=== PATIENT | male | born 1955 | race Caucasian/White ===

== ENCOUNTER → 2018-09-21 10:28 | Outpatient (CLI) | payer BC, SELFPAY ==
--- NOTE | 2018-09-21 10:38 | US_ITS ---
US Kidney CLINICAL INDICATION: Evaluate left renal lesion ITS.REASON: NEOPLASM LT KIDNEY ORDERING PHYSICIAN: Matthew Velazquez MD PATIENT AGE: 63 years Comparison: 09/07/2018 FINDINGS: The right kidney measures 13 x 6 x 6 cm. No hydronephrosis evident. There are multiple right renal cyst. At least 3 cysts are present one in the upper pole at 17 mm, one in the mid pole at 13 mm and one in the mid pole 16 mm. The left kidney is 12 x 6 x 6 cm. No hydronephrosis. The CT scan suggested a possible solid lesion in the posterior aspect of the left kidney. There are multiple left renal cysts noted by ultrasound included a 19 mm cyst along the lower pole. In the upper pole there is a 2 cm cyst and a 1 cm cyst. In the lower pole laterally there is an isoechoic nodule at 19 mm it does not represent a simple cyst by ultrasound. No other significant anomalies are evident. IMPRESSION: 1. Bilateral renal cysts. 2. 19 mm mixed echogenic nodule in the lower pole which may correspond to the CT abnormality and does not meet the criteria for simple cyst. A solid lesion or complex cyst is considered. CT of the kidneys without and with contrast with three-phase postenhanced imaging suggested for further evaluation
== END ==
PROVIDERS: PCP Family Medicine; Visit Provider Family Medicine
DX: D41.02 Neoplasm of uncertain behavior of left kidney (principal)
CPT/HCPCS: 76770

== ENCOUNTER → 2018-10-04 14:47 | Outpatient (CLI) | payer BC, SELFPAY ==
[2018-10-04 17:02] LABS: Blood Urea Nitrogen 25 mg/dL (7-18); Creatinine,Serum 1.98 mg/dL (0.70-1.30); Estimated Glomerular Filt Rate 34 ml/min (>60); GFR (African American) 41 ML/MIN (>60)
== END ==
PROVIDERS: Visit Provider Family Medicine
DX: D41.02 Neoplasm of uncertain behavior of left kidney (principal)
CPT/HCPCS: 36415; 82565; 84520

== ENCOUNTER → 2018-10-06 09:39 | Outpatient (CLI) | payer BC, SELFPAY ==
--- NOTE | 2018-10-06 | CT_ITS ---
CT abdomen pelvis wo con CLINICAL INDICATION: Left renal lesion follow-up ITS.REASON: LEFT RENAL MASS ORDERING PHYSICIAN: Matthew Velazquez MD PATIENT AGE: 63 years COMPARISON: 09/07/2018, 09/21/2018 TECHNIQUE: The study was scheduled as a CT renal without and with contrast with three-phase imaging. The patient however was not given IV contrast due to his elevated creatinine and low GFR. Axial images obtained with sagittal and coronal reformats. All CT scans at the facility use one or more dose reduction, viz: automated exposure control, ma/kV adjustment per patient size (including targeted exams where dose is matched to indication, i.e. head), or iterative reconstruction technique. PROCEDURE: Oral Contrast: None IV Contrast: None . FINDINGS: Lower thorax: No acute finding The liver, gallbladder, spleen, and pancreas have an unremarkable unenhanced CT appearance. There is some mild nodularity of the left adrenal gland nonspecific measuring approximately 1 cm. There are bilateral renal cysts. On the right there is a 12 mm isodensity posteriorly and an 8 mm hyperdensity posteriorly which may be due to hyperdense cyst. There is an additional 10 mm isodensity medially. This ultrasound and lumbar spine CT demonstrated a 2 cm isoechoic nodule projecting off the inferior aspect of left kidney. This area is once again noted measuring 18 mm and 25 Hounsfield units. This is more dense than what one would expect for simple cyst. There is a simple appearing cyst in the anterior aspect of the left kidney at 18 mm 4 Hounsfield units and in the upper pole the left kidney at 16 mm and 3 Hounsfield units. No retroperitoneal adenopathy. No renal or ureteral calculi. No hydronephrosis. No intestinal obstruction or free air. Unremarkable appendix. Colonic diverticulosis without diverticulitis. The prostate is enlarged at 5.8 cm. No acute bony anomalies. There is an area of calcification posterior to the T8-T9 vertebral body along the anterior epidural region and may represent a calcified disc herniation some mild narrowing of the canal at this level. Degenerative disc disease is present at T9-T10 with partially calcified disc osteophyte complex posteriorly. IMPRESSION: 1. 2 cm indeterminate left renal lesion. Unfortunately, IV contrast could not be utilized secondary to patient's compromised renal status. Would therefore suggest a MRI of the kidneys without and with gadolinium enhancement to better delineate the left renal lesion. 2. Bilateral renal cysts 3. Indeterminate nodularity of the left adrenal gland which may also be better evaluated with MRI if clinically desired
== END ==
PROVIDERS: PCP Family Medicine; Visit Provider Family Medicine
DX: D41.02 Neoplasm of uncertain behavior of left kidney (principal)
CPT/HCPCS: 74176

== ENCOUNTER → 2018-10-25 10:55 | Outpatient (CLI) | payer BC, SELFPAY ==
[2018-10-25 15:05] LABS: Blood Urea Nitrogen 37 mg/dL (7-18); Estimated Glomerular Filt Rate 27 ml/min (>60); GFR (African American) 33 ML/MIN (>60)
== END ==
PROVIDERS: Visit Provider Family Medicine
DX: D41.02 Neoplasm of uncertain behavior of left kidney (principal)
CPT/HCPCS: 36415; 82565; 84520

== ENCOUNTER → 2018-10-26 09:25 | Outpatient (CLI) | payer BC, SELFPAY ==
--- NOTE | 2018-10-26 09:29 | MR_ITS ---
MR abdomen wo/w con INDICATION: Left renal neoplasm, abnormal CT and ultrasound follow-up ITS.REASON: NEOPLASM OF UNCERTAIN BEHAVIOR LEFT KIDNEY ORDERING PHYSICIAN: Matthew Velazquez MD PATIENT AGE: 63 years COMPARISON: 10/06/2018, 09/21/2018 TECHNIQUE: Routine multiplanar multiecho sequences are performed without and with gadolinium enhancement FINDINGS: There are multiple small bilateral renal cysts. In the lower pole the left kidney posteriorly there is a solid-appearing lesion corresponding to the previous CT and ultrasound abnormality. This measures approximately 1.8 x 1.8 cm. This is isointense on the T1-weighted images and hypointense to isointense also on the T2 weighted images. This does not demonstrate any significant contrast enhancement. This could represent a small neoplasm. No other solid-appearing lesions are evident. The liver, spleen, adrenal glands, and pancreas have an unremarkable appearance. No bony destructive process evident. There is a small T2 high flow and tenderness nodule in the right kidney posteriorly which corresponds to a hyperdense nodule in the CT scan system with a hyperdense cyst IMPRESSION: 1. Multiple bilateral renal cysts. 2. Solid-appearing nodule in the lower pole left kidney at [address] and ultrasound abnormality which could represent a small renal neoplasm.
--- NOTE | 2018-10-26 11:20 | HMH.ITSHM ---
Current Home Medications as stated by this patient Lazaro Minor or retail representative. []SPIRONOLASTONE CARVELILOL AMLODIPINE METFORMIN ALLOPURINOL PRAVASTATIN LISINOPRIL LEVOTHYROXIN VITAMIN D3 BABY ASPIRIN
== END ==
PROVIDERS: PCP Family Medicine; Visit Provider Family Medicine
DX: D41.02 Neoplasm of uncertain behavior of left kidney (principal)
CPT/HCPCS: 74183; A9576

== ENCOUNTER → 2018-12-04 14:48 | Outpatient (POV) | payer BC, SELFPAY ==
[2018-12-04 15:53] LABS: Microscopic, Urine URINE MICROSCOPIC (MICROSCOPIC)
[2018-12-04 16:12] LABS: Appearance,Urine CLEAR (Clear); Bilirubin,Urine Negative (Negative); Blood, Urine Negative (Negative); Color,Urine YELLOW (Yellow); Glucose,Urine (UA) Negative (Negative); Ketones,Urine Negative (Negative); Leukocyte Esterase,Urine Negative (Negative); Nitrate,Urine Negative (Negative); Protein,Urine Negative (Negative); Specific Gravity, Urine <= 1.005 (1.005-1.030); Urobilinogen,Urine 0.2 EU/dl (0.2)
[2018-12-04 16:16] LABS: Total Protein,Urine Random 10.1 mg/dL (0.0-11.9)
[2018-12-04 16:20] LABS: Basophils % 0.3 % (0.1-2.0); Eosinophils # 0.1 K/mm3 (0.0-0.4); Eosinophils % 2.3 % (0.1-12.0); Hematocrit 36.7 % (42.0-52.0); Hemoglobin 11.1 g/dL (14.1-18.0); Lymphocytes # 1.6 K/mm3 (0.7-4.5); Lymphocytes % 29.4 % (10-50); Mean Corpuscular HGB Conc 30.3 g/dL (31.8-35.4); Mean Corpuscular Hemoglobin 26.9 pg (27.0-31.2); Mean Corpuscular Volume 88.7 fl (80-94); Mean Platelet Volume 6.8 fl (7.4-10.4); Monocytes # 0.3 K/mm3 (0.1-1.0); Monocytes % 5.3 % (1.7-9.3); Neutrophils # 3.5 K/mm3 (1.8-7.8); Neutrophils % 62.8 % (37.0-80.0); Platelet Count 313 K/mm3 (142-424); Red Blood Count 4.14 M/mm3 (4.60-6.20); Red Cell Distribution Width 13.4 % (11.5-17.5); White Blood Count 5.6 K/mm3 (4.8-10.8)
[2018-12-04 16:32] LABS: WBC,Urine Occasional #/hpf (0-3)
[2018-12-04 20:06] LABS: Albumin Level 3.8 gm/dL (3.4-5.0); Anion Gap 15.4 mEq/L (5-15); Blood Urea Nitrogen 26 mg/dL (7-18); Calcium 9.7 mg/dL (8.5-10.1); Carbon Dioxide 21 mmol/L (21.0-32.0); Chloride 103 mmol/L (98-107); Creatinine,Serum 2.09 mg/dL (0.70-1.30); Estimated Glomerular Filt Rate 32 ml/min (>60); GFR (African American) 39 ML/MIN (>60); Glucose 84 mg/dL (74-106); Potassium 5.4 mmoL/L (3.5-5.1); Sodium 134 mmol/L (136-145); Uric Acid 5.7 mg/dL (2.6-7.2)
[2018-12-07 06:10] LABS: Creatinine, Urine 30.9 mg/dL (Not Estab.); Microalbumin, Urine 40.6 ug/mL (Not Estab.)
[2018-12-07 20:00] LABS: Calcium, Ionized 5.6 mg/dL (4.5-5.6); Parathyroid Hormone Intact 19 pg/mL (15-65)
[2018-12-07 20:01] LABS: Vitamin D 25 Hydroxy 22.2 ng/mL (30.0-100.0)
== END ==
PROVIDERS: PCP Family Medicine; Visit Provider Internal Medicine Nephrology
DX: R79.89 Other specified abnormal findings of blood chemistry (principal); E55.9 Vitamin D deficiency, unspecified
CPT/HCPCS: 36415; 80069; 81001; 82043; 82330; 82570; 82652; 83970; 84155; 84550; 85025

== ENCOUNTER → 2019-01-24 07:50 | Outpatient (CLI) | payer BC, SELFPAY ==
[2019-01-24 07:52] LABS: Microscopic, Urine URINE MICROSCOPIC (MICROSCOPIC)
[2019-01-24 08:14] LABS: Basophils # 0.1 K/mm3 (0-0.2); Basophils % 0.6 % (0.1-2.0); Eosinophils # 0.3 K/mm3 (0.0-0.4); Hematocrit 34.4 % (42.0-52.0); Hemoglobin 10.8 g/dL (14.1-18.0); Lymphocytes # 2.3 K/mm3 (0.7-4.5); Lymphocytes % 32.2 % (10-50); Mean Corpuscular HGB Conc 31.5 g/dL (31.8-35.4); Mean Corpuscular Hemoglobin 28.3 pg (27.0-31.2); Mean Corpuscular Volume 89.9 fl (80-94); Mean Platelet Volume 6.7 fl (7.4-10.4); Monocytes # 0.4 K/mm3 (0.1-1.0); Monocytes % 5.4 % (1.7-9.3); Neutrophils % 57.7 % (37.0-80.0); Platelet Count 305 K/mm3 (142-424); Red Blood Count 3.83 M/mm3 (4.60-6.20); Red Cell Distribution Width 13.6 % (11.5-17.5)
[2019-01-24 09:41] LABS: Appearance,Urine CLEAR (Clear); Bilirubin,Urine Negative (Negative); Blood, Urine Negative (Negative); Color,Urine YELLOW (Yellow); Glucose,Urine (UA) Negative (Negative); Ketones,Urine Negative (Negative); Leukocyte Esterase,Urine Negative (Negative); Nitrate,Urine Negative (Negative); PH,Urine 5.5 (5.0-8.5); Protein,Urine Negative (Negative); Urobilinogen,Urine 0.2 EU/dl (0.2)
[2019-01-24 09:43] LABS: Creatinine,Urine Random 90 mg/dL (20-320); Total Protein,Urine Random 15.8 mg/dL (0.0-11.9)
[2019-01-24 09:58] LABS: Albumin Level 3.6 gm/dL (3.4-5.0); Anion Gap 18.5 mEq/L (5-15); Blood Urea Nitrogen 32 mg/dL (7-18); Calcium 9.8 mg/dL (8.5-10.1); Carbon Dioxide 21 mmol/L (21.0-32.0); Chloride 102 mmol/L (98-107); Creatinine,Serum 2.47 mg/dL (0.70-1.30); Estimated Glomerular Filt Rate 26 ml/min (>60); GFR (African American) 32 ML/MIN (>60); Glucose 120 mg/dL (74-106); Potassium 5.5 mmoL/L (3.5-5.1); Sodium 136 mmol/L (136-145)
[2019-01-24 10:59] LABS: Squamous Epithelial Cell,Urine Occasional #/hpf (0-5); WBC,Urine Occasional #/hpf (0-3)
== END ==
PROVIDERS: Visit Provider Internal Medicine Nephrology
DX: N18.4 Chronic kidney disease, stage 4 (severe) (principal)
CPT/HCPCS: 36415; 80069; 81001; 82570; 84155; 85025

== ENCOUNTER → 2019-01-25 13:38 | Outpatient (POV) | payer BC, SELFPAY | PROVIDERS: Visit Provider Internal Medicine Nephrology | DX: Z00.00 Encounter for general adult medical examination without abnormal findings (principal) ==

== ENCOUNTER → 2019-02-20 13:31 | Outpatient (CLI) | payer BC, SELFPAY ==
[2019-02-20 14:47] LABS: Blood Urea Nitrogen 35 mg/dL (7-18); Estimated Glomerular Filt Rate 27 ml/min (>60); GFR (African American) 33 ML/MIN (>60)
== END ==
PROVIDERS: Visit Provider Urology
DX: N28.89 Other specified disorders of kidney and ureter (principal)
CPT/HCPCS: 36415; 82565; 84520

== ENCOUNTER → 2019-02-21 08:30 | Outpatient (CLI) | payer BC, SELFPAY | PROVIDERS: PCP Family Medicine; Visit Provider Urology | DX: N28.89 Other specified disorders of kidney and ureter (principal) ==

== ENCOUNTER → 2019-03-05 10:21 | Outpatient (CLI) | payer BC, SELFPAY ==
--- NOTE | 2019-03-05 10:22 | MR_ITS ---
PROCEDURE: MR ABDOMEN WO CON CLINICAL INDICATION: renal mass Follow-up bilateral renal cysts and left renal mass COMPARISON: SPLUMBWO CT lumbar spine wo con from 09/07/2018 KIDNEY US Kidney from 09/21/[address] abdomen pelvis wo con from 10/06/2018 TECHNIQUE: Routine multiplanar multi echo sequences are performed without gadolinium enhancement. FINDINGS: Multiple bilateral renal cysts are once again noted. There remains a complex nodule in the lower pole of the left kidney measuring 1.9 cm. This is isointense on the T1 weighted images and hypointense on the T2 weighted images. The size and signal intensity is similar when compared to the previous exam. This is well-circumscribed. No new lesions are evident. No hydronephrosis. The visualized liver, spleen, adrenal glands, and pancreas have an unremarkable appearance. IMPRESSION: Overall stable CT appearance of the multiple bilateral renal cyst and the complex nodule in the lower pole on the left which could represent a proteinaceous or hemorrhagic cyst or even solid nodule. Continued follow-up recommended Dictated by: Mitch Vargas MD 03/08/2019 04:47 Electronically signed by Mitch Vargas MD in [place] 03/09/2019 10:46
== END ==
PROVIDERS: PCP Family Medicine; Visit Provider Urology
DX: N28.89 Other specified disorders of kidney and ureter (principal)
CPT/HCPCS: 74181

== ENCOUNTER → 2019-03-22 10:01 | Outpatient (CLI) | payer BC, SELFPAY ==
[2019-03-22 10:04] LABS: Microscopic, Urine URINE MICROSCOPIC (MICROSCOPIC)
[2019-03-22 10:45] LABS: Basophils % 0.5 % (0.1-2.0); Eosinophils # 0.2 K/mm3 (0.0-0.4); Hematocrit 35.8 % (42.0-52.0); Hemoglobin 11.2 g/dL (14.1-18.0); Lymphocytes % 34.1 % (10-50); Mean Corpuscular HGB Conc 31.3 g/dL (31.8-35.4); Mean Corpuscular Hemoglobin 29.1 pg (27.0-31.2); Mean Corpuscular Volume 92.9 fl (80-94); Mean Platelet Volume 7.5 fl (7.4-10.4); Monocytes # 0.3 K/mm3 (0.1-1.0); Monocytes % 4.4 % (1.7-9.3); Neutrophils # 3.4 K/mm3 (1.8-7.8); Neutrophils % 57.9 % (37.0-80.0); Platelet Count 312 K/mm3 (142-424); Red Blood Count 3.85 M/mm3 (4.60-6.20); Red Cell Distribution Width 13.3 % (11.5-17.5); White Blood Count 5.8 K/mm3 (4.8-10.8)
[2019-03-22 11:11] LABS: Appearance,Urine CLEAR (Clear); Bilirubin,Urine Negative (Negative); Blood, Urine Negative (Negative); Color,Urine YELLOW (Yellow); Glucose,Urine (UA) Negative (Negative); Ketones,Urine Negative (Negative); Leukocyte Esterase,Urine Negative (Negative); Nitrate,Urine Negative (Negative); PH,Urine 5.5 (5.0-8.5); Protein,Urine Negative (Negative); Urobilinogen,Urine 0.2 EU/dl (0.2)
[2019-03-22 13:00] LABS: Albumin Level 3.5 gm/dL (3.4-5.0); Anion Gap 14.1 mEq/L (5-15); Blood Urea Nitrogen 37 mg/dL (7-18); Calcium 9.2 mg/dL (8.5-10.1); Carbon Dioxide 21 mmol/L (21.0-32.0); Chloride 104 mmol/L (98-107); Creatinine,Serum 2.18 mg/dL (0.70-1.30); Estimated Glomerular Filt Rate 31 ml/min (>60); GFR (African American) 37 ML/MIN (>60); Glucose 111 mg/dL (74-106); Phosphorous 3.6 mg/dL (2.4-4.9); Potassium 5.1 mmoL/L (3.5-5.1); Sodium 134 mmol/L (136-145)
[2019-03-22 15:41] LABS: Creatinine,Urine Random 35 mg/dL (20-320); Total Protein,Urine Random 9.6 mg/dL (0.0-11.9)
== END ==
PROVIDERS: Visit Provider Internal Medicine Nephrology
DX: N18.4 Chronic kidney disease, stage 4 (severe) (principal)
CPT/HCPCS: 36415; 80069; 81001; 82570; 84155; 85025

== ENCOUNTER → 2019-03-29 15:35 | Outpatient (POV) | payer BC, SELFPAY | PROVIDERS: Visit Provider Internal Medicine Nephrology | DX: Z00.00 Encounter for general adult medical examination without abnormal findings (principal) ==

== ENCOUNTER → 2019-07-24 11:10 | Outpatient (CLI) | payer OTHER, SELFPAY ==
[2019-07-24 11:16] LABS: Microscopic, Urine URINE MICROSCOPIC (MICROSCOPIC)
[2019-07-24 11:47] LABS: Basophils % 0.3 % (0.1-2.0); Eosinophils # 0.2 K/mm3 (0.0-0.4); Eosinophils % 3.2 % (0.1-12.0); Hemoglobin 12.3 g/dL (14.1-18.0); Lymphocytes # 1.3 K/mm3 (0.7-4.5); Lymphocytes % 25.2 % (10-50); Mean Corpuscular HGB Conc 32.5 g/dL (31.8-35.4); Mean Corpuscular Hemoglobin 28.4 pg (27.0-31.2); Mean Corpuscular Volume 87.4 fl (80-94); Mean Platelet Volume 7.5 fl (7.4-10.4); Monocytes # 0.3 K/mm3 (0.1-1.0); Monocytes % 6.1 % (1.7-9.3); Neutrophils # 3.4 K/mm3 (1.8-7.8); Neutrophils % 65.2 % (37.0-80.0); Platelet Count 340 K/mm3 (142-424); Red Blood Count 4.35 M/mm3 (4.60-6.20); Red Cell Distribution Width 12.7 % (11.5-17.5); White Blood Count 5.2 K/mm3 (4.8-10.8)
[2019-07-24 12:08] LABS: Appearance,Urine CLEAR (Clear); Bilirubin,Urine Negative (Negative); Blood, Urine 1+ (Negative); Color,Urine YELLOW (Yellow); Glucose,Urine (UA) Negative (Negative); Ketones,Urine Negative (Negative); Leukocyte Esterase,Urine Negative (Negative); Nitrate,Urine Negative (Negative); Protein,Urine 3+ (Negative); Urobilinogen,Urine 0.2 EU/dl (0.2)
[2019-07-24 12:26] LABS: Creatinine,Urine Random 22 mg/dL (Not Estab.)
[2019-07-24 12:33] LABS: Bacteria,Urine Trace /lpf; RBC,Urine Occasional #/hpf (0-3); Squamous Epithelial Cell,Urine Occasional #/hpf (0-5)
[2019-07-24 13:15] LABS: Albumin Level 4.3 g/dl (3.5-5.0); Anion Gap 14.4 mEq/L (5-15); Blood Urea Nitrogen 21 mg/dl (9-20); Calcium 10.2 mg/dl (8.4-10.2); Carbon Dioxide 26 mmol/L (22.0-30.0); Chloride 100 mmol/L (98-107); Estimated Glomerular Filt Rate 34 ml/min (>60); GFR (African American) 41 ML/MIN (>60); Glucose 109 mg/dl (74-100); Phosphorous 3.7 mg/dl (2.5-4.5); Potassium 4.4 mmoL/L (3.5-5.1); Sodium 136 mmol/L (136-145)
[2019-07-25 16:21] LABS: Parathyroid Hormone Intact 25 pg/mL (15-65)
[2019-07-25 16:22] LABS: Calcium, Ionized 5.4 mg/dL (4.5-5.6); Vitamin D 25 Hydroxy 36.4 ng/mL (30.0-100.0)
== END ==
PROVIDERS: Visit Provider Internal Medicine Nephrology
DX: N18.4 Chronic kidney disease, stage 4 (severe) (principal)
CPT/HCPCS: 36415; 80069; 81001; 82330; 82570; 82652; 83970; 84155; 85025

== ENCOUNTER → 2019-08-27 07:52 | Outpatient (CLI) | payer MEDICARE, SELFPAY ==
--- NOTE | 2019-08-27 07:53 | MR_ITS ---
PROCEDURE: MR ABDOMEN WO CON CLINICAL INDICATION: RENAL MASS Follow-up renal mass COMPARISON: SPLUMBWO CT lumbar spine wo con from 09/07/2018 KIDNEY US Kidney from 09/21/[address] abdomen pelvis wo con from 10/06/2018 MR ABDOMEN WO CON from 03/05/2019 TECHNIQUE: Routine multiplanar multi echo sequences are performed without gadolinium enhancement. FINDINGS: Multiple bilateral renal cysts are once again noted. There remains a complex nodule in the lower pole of the left kidney measuring 2 x 1.8 cm. This is overall not significantly changed. No new nodules are evident. This nodule demonstrates decreased T2 an isointense T1 signal compared to the renal parenchyma. The liver, spleen, adrenal glands, and pancreas have an unremarkable appearance. Gallbladder has an unremarkable appearance. There is a hyperintense T1 exophytic nodule along the posterior aspect of the right kidney measuring 1 cm may be due to proteinaceous cyst. IMPRESSION: The solid-appearing left renal nodule appear stable compared to the previous exam. Continued six-month follow-up suggested. No change multiple bilateral renal cyst and the probable small proteinaceous cyst of the right kidney Dictated by: Mitch Vargas MD 08/30/2019 09:14 Electronically signed by Mitch Vargas MD in [place] 08/30/2019 09:14
== END ==
PROVIDERS: PCP Family Medicine; Visit Provider Urology
DX: N28.89 Other specified disorders of kidney and ureter (principal)
CPT/HCPCS: 74181

== ENCOUNTER → 2019-11-19 13:23 | Outpatient (CLI) | payer MEDICARE, SELFPAY ==
[2019-11-19 13:28] LABS: Microscopic, Urine URINE MICROSCOPIC (MICROSCOPIC)
[2019-11-19 14:29] LABS: Chloride 104 mmol/L (98-107); Sodium 135 mmol/L (136-145)
[2019-11-19 14:30] LABS: Albumin Level 4.2 g/dl (3.5-5.0); Potassium 4.7 mmoL/L (3.5-5.1)
[2019-11-19 14:32] LABS: Blood Urea Nitrogen 26 mg/dl (9-20); Estimated Glomerular Filt Rate 36 ml/min (>60); GFR (African American) 43 ML/MIN (>60)
[2019-11-19 14:33] LABS: Anion Gap 11.7 mEq/L (5-15); Calcium 9.6 mg/dl (8.4-10.2); Carbon Dioxide 24 mmol/L (22.0-30.0); Glucose 90 mg/dl (74-100)
[2019-11-19 14:36] LABS: Basophils % 0.3 % (0.1-2.0); Eosinophils # 0.2 K/mm3 (0.0-0.4); Eosinophils % 3.5 % (0.1-12.0); Hematocrit 38.2 % (42.0-52.0); Hemoglobin 12.8 g/dL (14.1-18.0); Lymphocytes # 1.9 K/mm3 (0.7-4.5); Mean Corpuscular HGB Conc 33.5 g/dL (31.8-35.4); Mean Corpuscular Hemoglobin 28.9 pg (27.0-31.2); Mean Corpuscular Volume 86.3 fl (80-94); Mean Platelet Volume 8.7 fl (7.4-10.4); Monocytes # 0.3 K/mm3 (0.1-1.0); Neutrophils # 4.3 K/mm3 (1.8-7.8); Neutrophils % 63.2 % (37.0-80.0); Platelet Count 338 K/mm3 (142-424); Red Blood Count 4.43 M/mm3 (4.60-6.20); Red Cell Distribution Width 13.4 % (11.5-17.5); White Blood Count 6.7 K/mm3 (4.8-10.8)
[2019-11-19 17:00] LABS: Creatinine,Urine Random 20 mg/dL (Not Estab.)
[2019-11-19 17:17] LABS: Appearance,Urine CLEAR (Clear); Bilirubin,Urine Negative (Negative); Blood, Urine Negative (Negative); Color,Urine YELLOW (Yellow); Glucose,Urine (UA) Negative (Negative); Ketones,Urine Negative (Negative); Leukocyte Esterase,Urine Negative (Negative); Nitrate,Urine Negative (Negative); Protein,Urine 1+ (Negative); Specific Gravity, Urine <= 1.005 (1.005-1.030); Urobilinogen,Urine 0.2 EU/dl (0.2)
[2019-11-19 17:31] LABS: Bacteria,Urine Trace /lpf; Squamous Epithelial Cell,Urine Occasional #/hpf (0-5); WBC,Urine Occasional #/hpf (0-3)
== END ==
PROVIDERS: Visit Provider Internal Medicine Nephrology
DX: N18.4 Chronic kidney disease, stage 4 (severe) (principal)
CPT/HCPCS: 36415; 80069; 81001; 82570; 84155; 85025

== ENCOUNTER → 2019-11-22 14:35 | Outpatient (POV) | payer MEDICARE, SELFPAY | PROVIDERS: Visit Provider Internal Medicine Nephrology | DX: Z00.00 Encounter for general adult medical examination without abnormal findings (principal) ==

== ENCOUNTER → 2020-02-25 14:57 | Outpatient (CLI) | payer MEDICARE, SELFPAY ==
[2020-02-25 15:01] LABS: Microscopic, Urine URINE MICROSCOPIC (MICROSCOPIC)
[2020-02-25 15:37] LABS: Basophils % 0.6 % (0.1-2.0); Eosinophils # 0.3 K/mm3 (0.0-0.4); Eosinophils % 4.2 % (0.1-12.0); Hemoglobin 12.5 g/dL (14.1-18.0); Lymphocytes % 29.2 % (10-50); Mean Corpuscular HGB Conc 33.8 g/dL (31.8-35.4); Mean Corpuscular Hemoglobin 29.4 pg (27.0-31.2); Mean Corpuscular Volume 87.1 fl (80-94); Mean Platelet Volume 7.7 fl (7.4-10.4); Monocytes # 0.3 K/mm3 (0.1-1.0); Monocytes % 4.7 % (1.7-9.3); Neutrophils # 4.2 K/mm3 (1.8-7.8); Neutrophils % 61.2 % (37.0-80.0); Platelet Count 317 K/mm3 (142-424); Red Blood Count 4.25 M/mm3 (4.60-6.20); Red Cell Distribution Width 12.8 % (11.5-17.5); White Blood Count 6.9 K/mm3 (4.8-10.8)
[2020-02-25 16:25] LABS: Albumin Level 4.4 g/dl (3.5-5.0); Anion Gap 15.7 mEq/L (5-15); Blood Urea Nitrogen 39 mg/dl (9-20); Calcium 9.9 mg/dl (8.4-10.2); Carbon Dioxide 21 mmol/L (22.0-30.0); Chloride 101 mmol/L (98-107); Estimated Glomerular Filt Rate 24 ml/min (>60); GFR (African American) 29 ML/MIN (>60); Glucose 97 mg/dl (74-100); Phosphorous 4.1 mg/dl (2.5-4.5); Potassium 5.7 mmoL/L (3.5-5.1); Sodium 132 mmol/L (136-145)
[2020-02-25 16:41] LABS: Appearance,Urine CLEAR (Clear); Bilirubin,Urine Negative (Negative); Blood, Urine Negative (Negative); Color,Urine YELLOW (Yellow); Glucose,Urine (UA) Negative (Negative); Ketones,Urine Negative (Negative); Leukocyte Esterase,Urine Negative (Negative); Nitrate,Urine Negative (Negative); PH,Urine 5.5 (5.0-8.5); Protein,Urine Negative (Negative); Specific Gravity, Urine 1.015 (1.005-1.030); Urobilinogen,Urine 0.2 EU/dl (0.2)
[2020-02-25 16:46] LABS: Squamous Epithelial Cell,Urine Occasional #/hpf (0-5)
[2020-02-25 16:51] LABS: Creatinine,Urine Random 86 mg/dL (Not Estab.)
== END ==
PROVIDERS: Visit Provider Internal Medicine Nephrology
DX: N18.4 Chronic kidney disease, stage 4 (severe) (principal); R80.9 Proteinuria, unspecified
CPT/HCPCS: 36415; 80069; 81001; 82570; 84155; 85025

== ENCOUNTER → 2020-03-03 14:42 | Outpatient (POV) | payer MEDICARE, SELFPAY | PROVIDERS: Visit Provider Internal Medicine Nephrology | DX: Z00.00 Encounter for general adult medical examination without abnormal findings (principal) ==

== ENCOUNTER → 2020-09-01 07:51 | Outpatient (CLI) | payer MEDICARE, SELFPAY ==
--- NOTE | 2020-09-01 07:51 | MR_ITS ---
PROCEDURE: MR ABDOMEN WO CON CLINICAL INDICATION: renal mass 1 year follow up scan. No new symptoms. Spots on left kidney since 2018. COMPARISON: US KIDNEY US Kidney from 09/21/[address] abdomen pelvis wo con from 10/06/2018 MR MR ABDOMEN WO CON from 08/27/2019 TECHNIQUE: Routine multiplanar multi echo sequences are performed without gadolinium enhancement. FINDINGS: There are numerous small bilateral renal cysts which have a benign appearance. The largest benign-appearing cyst is in the upper pole of the left kidney measuring 19 mm not significantly changed. There is a complex renal cyst in the lower pole on the left posteriorly which is isointense on T1 and hypointense on T2. The liver, adrenal glands, spleen, pancreas, and gallbladder has an unremarkable appearance. IMPRESSION: No change multiple renal cysts and hypointense T2 lesion along the lower pole of the left kidney possibly due to a hemorrhagic/proteinaceous/complex cyst or atypical solid lesion the. Dictated by: Mitch Vargas MD 09/03/2020 10:15 Mitch Vargas MD in [place] 09/03/2020 10:15
== END ==
PROVIDERS: PCP Family Medicine; Visit Provider Urology
DX: N28.89 Other specified disorders of kidney and ureter (principal)
CPT/HCPCS: 74181

== ENCOUNTER → 2020-11-19 09:11 | Outpatient (CLI) | payer MEDICARE, SELFPAY ==
[2020-11-19 09:44] LABS: Chloride 108 mmol/L (98-107); Sodium 136 mmol/L (136-145)
[2020-11-19 09:47] LABS: Anion Gap 16.2 mEq/L (5-15); Blood Urea Nitrogen 36 mg/dl (9-20); Calcium 9.1 mg/dl (8.4-10.2); Carbon Dioxide 18 mmol/L (22.0-30.0); Estimated Glomerular Filt Rate 23 ml/min (>60); GFR (African American) 28 ML/MIN (>60); Glucose 146 mg/dl (74-100)
[2020-11-19 10:05] LABS: Potassium 6.2 mmoL/L (3.5-5.1)
== END ==
PROVIDERS: PCP Family Medicine; Visit Provider Family Medicine
DX: E87.6 Hypokalemia (principal)
CPT/HCPCS: 36415; 80048

== ENCOUNTER → 2021-09-03 12:36 | Outpatient (CLI) | payer MEDICARE, SELFPAY ==
--- NOTE | 2021-09-03 12:41 | US_ITS ---
FINAL REPORT TECHNIQUE: Ultrasound images of the kidneys and bladder were obtained. CLINICAL HISTORY: .fu renal cysts COMPARISON: September 21, 2018 FINDINGS: The right kidney measures 9.8 cm in length. There is no hydronephrosis. The left kidney measures 9.7 cm in length. There is no hydronephrosis. Again demonstrated are a multitude of anechoic and hypoechoic structures in both kidneys. Individual structures measure up to 1.9 cm. Some of these structures demonstrate internal echoes. In the lower pole of the left kidney there is a complex focus measuring 2.5 x 1.7 cm. It was present previously but appears slightly larger on today's exam. The urinary bladder is unremarkable. IMPRESSION: Apparent increase in size of a complex lesion in the lower pole of the left kidney. A pre and post infusion CT scan is recommended to better characterize. Reviewed, Interpreted and Dictated by Inderjit Fink MD Transcribed by Patricia Duque Authenticated by Inderjit Fink MD on 09/03/2021 04:17:56 PM [facility]
== END ==
PROVIDERS: PCP Family Medicine; Visit Provider Urology
DX: N28.1 Cyst of kidney, acquired (principal)
CPT/HCPCS: 76770

== ENCOUNTER → 2021-09-08 10:41 | Outpatient (CLI) | payer MEDICARE, SELFPAY ==
[2021-09-08 12:48] LABS: Chloride 107 mmol/L (98-107); Sodium 134 mmol/L (136-145)
[2021-09-08 12:50] LABS: Alanine Aminotransferase 11 U/L (12-78); Blood Urea Nitrogen 30 mg/dl (9-20); Estimated Glomerular Filt Rate 26 ml/min (>60); GFR (African American) 31 ML/MIN (>60)
[2021-09-08 12:51] LABS: Albumin Level 4.2 g/dl (3.5-5.0); Albumin/Globulin Ratio 1.6 (1.1-1.8); Alkaline Phosphatase 59 U/L (38-126); Anion Gap 13.5 mEq/L (5-15); Aspartate Amino Transferase 19 U/L (17-59); Bilirubin,Total 0.5 mg/dl (0.2-1.3); Calcium 9.2 mg/dl (8.4-10.2); Carbon Dioxide 20 mmol/L (22.0-30.0); Globulin 2.7 g/dL (1.3-3.2); Glucose 113 mg/dl (74-100); Total Protein,Serum 6.9 g/dl (6.3-8.2)
[2021-09-08 13:14] LABS: Potassium 6.5 mmoL/L (3.5-5.1)
[2021-09-08 13:59] LABS: Prostate Specific Ag Screen 2.4 ng/ml (0.0-4.0)
== END ==
PROVIDERS: Visit Provider Urology
DX: N28.9 Disorder of kidney and ureter, unspecified (principal); Z12.5 Encounter for screening for malignant neoplasm of prostate
CPT/HCPCS: 36415; 80053; G0103

== ENCOUNTER → 2021-09-17 08:20 | Outpatient (CLI) | payer MEDICARE, SELFPAY ==
--- NOTE | 2021-09-17 08:34 | XR_ITS ---
FINAL REPORT CLINICAL HISTORY: chronic Rt knee pain, KNI FINDINGS: 3 views of the right knee were obtained. There is no acute fracture or dislocation. There is moderate narrowing of the medial compartment joint space. There is osteophyte formation along the undersurface of the patella and at the medial joint margin. There is a moderate joint effusion. IMPRESSION: Moderate joint effusion with moderate osteoarthritis. Reviewed, Interpreted and Dictated by Inderjit Fink MD Transcribed by Jeronimo Flores Authenticated by Inderjit Fink MD on 09/17/2021 10:56:51 AM [facility]
--- NOTE | 2021-09-17 08:34 | XR_ITS ---
FINAL REPORT CLINICAL HISTORY: chronic Lt knee pain, NKI FINDINGS: 3 views of the left knee were obtained. There is no acute fracture or dislocation. There is moderate medial compartment joint space narrowing. There is sharpening of the tibial spines. There is mild osteophyte formation along the medial and patellofemoral joint space. There is a 9 mm density in the posterior margin of the joint space concerning for intra-articular loose body. IMPRESSION: Moderate osteoarthritis with questionable posterior loose body. Reviewed, Interpreted and Dictated by Inderjit Fink MD Transcribed by Jeronimo Flores Authenticated by Inderjit Fink MD on 09/17/2021 10:56:42 AM [facility]
== END ==
PROVIDERS: PCP Family Medicine; Visit Provider Family Medicine
DX: M25.562 Pain in left knee (principal); M25.561 Pain in right knee
CPT/HCPCS: 73562

== ENCOUNTER → 2021-09-22 14:50 | Outpatient (POV) | payer MEDICARE, SELFPAY | PROVIDERS: Visit Provider Dermatology | DX: Z00.00 Encounter for general adult medical examination without abnormal findings (principal) ==

== ENCOUNTER → 2021-09-24 15:13 | Outpatient (POV) | payer MEDICARE, SELFPAY | PROVIDERS: Visit Provider Internal Medicine Nephrology | DX: Z00.00 Encounter for general adult medical examination without abnormal findings (principal) ==

== ENCOUNTER → 2021-10-20 08:31 | Outpatient (POV) | payer MEDICARE, SELFPAY | PROVIDERS: Visit Provider Dermatology | DX: Z00.00 Encounter for general adult medical examination without abnormal findings (principal) ==

== ENCOUNTER → 2021-11-23 09:53 | Outpatient (CLI) | payer MEDICARE, SELFPAY ==
[2021-11-23 10:05] LABS: Microscopic, Urine URINE MICROSCOPIC (MICROSCOPIC)
[2021-11-23 10:26] LABS: Hematocrit 38.6 % (42.0-52.0); Hemoglobin 11.7 g/dL (14.1-18.0); Mean Corpuscular HGB Conc 30.2 g/dL (31.8-35.4); Mean Corpuscular Hemoglobin 26.4 pg (27.0-31.2); Mean Corpuscular Volume 87.5 fl (80-94); Platelet Count 300 K/mm3 (142-424); Red Blood Count 4.41 M/mm3 (4.60-6.20); Red Cell Distribution Width 14.2 % (11.5-17.5); White Blood Count 5.5 K/mm3 (4.8-10.8)
[2021-11-23 10:48] LABS: Creatinine,Urine Random 44 mg/dL (Not Estab.)
[2021-11-23 11:01] LABS: Albumin Level 4.5 g/dl (3.5-5.0); Anion Gap 14.2 mEq/L (5-15); Blood Urea Nitrogen 22 mg/dl (9-20); Calcium 10.2 mg/dl (8.4-10.2); Carbon Dioxide 22 mmol/L (22.0-30.0); Chloride 106 mmol/L (98-107); Estimated Glomerular Filt Rate 30 ml/min (>60); GFR (African American) 36 ML/MIN (>60); Glucose 113 mg/dl (74-100); Phosphorous 3.7 mg/dl (2.5-4.5); Potassium 5.2 mmoL/L (3.5-5.1); Sodium 137 mmol/L (136-145)
[2021-11-23 11:12] LABS: Intact Parathyroid Hormone 36.4 pg/mL (7.5-53.5)
[2021-11-23 11:18] LABS: 25-OH Vitamin D, Total 60.4 ng/mL (30-100)
[2021-11-23 11:58] LABS: Appearance,Urine CLEAR (Clear); Bilirubin,Urine Negative (Negative); Blood, Urine Negative (Negative); Color,Urine YELLOW (Yellow); Glucose,Urine (UA) Negative (Negative); Ketones,Urine Negative (Negative); Leukocyte Esterase,Urine Negative (Negative); Nitrate,Urine Negative (Negative); Protein,Urine Negative (Negative); Specific Gravity, Urine <= 1.005 (1.005-1.030); Urobilinogen,Urine 0.2 EU/dl (0.2)
[2021-11-23 12:14] LABS: Bacteria,Urine Trace /lpf; Squamous Epithelial Cell,Urine Occasional #/hpf (0-5); WBC,Urine Occasional #/hpf (0-3)
== END ==
PROVIDERS: PCP Family Medicine; Visit Provider Internal Medicine Nephrology
DX: N18.4 Chronic kidney disease, stage 4 (severe) (principal)
CPT/HCPCS: 36415; 80069; 81001; 82306; 82570; 83970; 84155; 85014; 85018; 85048; 85049

== ENCOUNTER → 2021-11-26 15:01 | Outpatient (POV) | payer MEDICARE, SELFPAY | PROVIDERS: Visit Provider Internal Medicine Nephrology | DX: Z00.00 Encounter for general adult medical examination without abnormal findings (principal) ==

== ENCOUNTER → 2022-02-22 12:18 | Outpatient (CLI) | payer MEDICARE, SELFPAY ==
[2022-02-22 12:35] LABS: Microscopic, Urine URINE MICROSCOPIC (MICROSCOPIC)
[2022-02-22 13:21] LABS: Appearance,Urine CLEAR (Clear); Bilirubin,Urine Negative (Negative); Blood, Urine TRACE-I (Negative); Color,Urine YELLOW (Yellow); Glucose,Urine (UA) Negative (Negative); Hematocrit 35.3 % (42.0-52.0); Hemoglobin 11.4 g/dL (14.1-18.0); Ketones,Urine Negative (Negative); Leukocyte Esterase,Urine Negative (Negative); Mean Corpuscular HGB Conc 32.2 g/dL (31.8-35.4); Mean Corpuscular Hemoglobin 27.9 pg (27.0-31.2); Mean Corpuscular Volume 86.6 fl (80-94); Nitrate,Urine Negative (Negative); Platelet Count 380 K/mm3 (142-424); Protein,Urine 1+ (Negative); Red Blood Count 4.08 M/mm3 (4.60-6.20); Red Cell Distribution Width 16.3 % (11.5-17.5); Specific Gravity, Urine <= 1.005 (1.005-1.030); Urobilinogen,Urine 0.2 EU/dl (0.2); White Blood Count 6.5 K/mm3 (4.8-10.8)
[2022-02-22 13:33] LABS: Creatinine,Urine Random 16 mg/dL (Not Estab.)
[2022-02-22 13:48] LABS: RBC,Urine Occasional #/hpf (0-3); Squamous Epithelial Cell,Urine Occasional #/hpf (0-5); WBC,Urine Occasional #/hpf (0-3)
[2022-02-22 14:41] LABS: Albumin Level 4.1 g/dl (3.5-5.0); Anion Gap 16.4 mEq/L (5-15); Blood Urea Nitrogen 28 mg/dl (9-20); Calcium 9.4 mg/dl (8.4-10.2); Carbon Dioxide 22 mmol/L (22.0-30.0); Chloride 105 mmol/L (98-107); Estimated Glomerular Filt Rate 33 ml/min (>60); GFR (African American) 41 ML/MIN (>60); Glucose 96 mg/dl (74-100); Phosphorous 3.1 mg/dl (2.5-4.5); Potassium 5.4 mmoL/L (3.5-5.1); Sodium 138 mmol/L (136-145)
== END ==
PROVIDERS: PCP Family Medicine; Visit Provider Internal Medicine Nephrology
DX: N18.4 Chronic kidney disease, stage 4 (severe) (principal)
CPT/HCPCS: 36415; 80069; 81001; 82570; 84155; 85014; 85018; 85048; 85049

== ENCOUNTER → 2022-02-25 14:19 | Outpatient (POV) | payer MEDICARE, SELFPAY | PROVIDERS: Visit Provider Internal Medicine Nephrology | DX: Z00.00 Encounter for general adult medical examination without abnormal findings (principal) ==

== ENCOUNTER → 2022-03-04 09:34 | Outpatient (CLI) | payer MEDICARE, SELFPAY ==
[2022-03-04 10:55] LABS: Creatinine,Urine Random 70 mg/dL (Not Estab.)
== END ==
PROVIDERS: PCP Family Medicine; Visit Provider Internal Medicine Nephrology
DX: R80.9 Proteinuria, unspecified (principal)
CPT/HCPCS: 82570; 84155

== ENCOUNTER → 2022-06-07 12:51 | Outpatient (CLI) | payer MEDICARE, SELFPAY ==
[2022-06-07 13:47] LABS: Anion Gap 11.8 mEq/L (5-15); Blood Urea Nitrogen 18 mg/dl (9-20); Calcium 8.6 mg/dl (8.4-10.2); Carbon Dioxide 30 mmol/L (22.0-30.0); Chloride 98 mmol/L (98-107); Estimated Glomerular Filt Rate 28 ml/min (>60); GFR (African American) 34 ML/MIN (>60); Glucose 140 mg/dl (74-100); Sodium 137 mmol/L (136-145)
[2022-06-07 14:07] LABS: Potassium 2.8 mmoL/L (3.5-5.1)
== END ==
PROVIDERS: PCP Family Medicine; Visit Provider Family Medicine
DX: E87.6 Hypokalemia (principal)
CPT/HCPCS: 36415; 80048

== ENCOUNTER → 2022-06-21 14:52 | Outpatient (CLI) | payer MEDICARE, SELFPAY ==
[2022-06-21 15:12] LABS: Microscopic, Urine URINE MICROSCOPIC (MICROSCOPIC)
[2022-06-21 15:54] LABS: Creatinine,Urine Random 76 mg/dL (Not Estab.); Hematocrit 35.8 % (42.0-52.0); Hemoglobin 11.6 g/dL (14.1-18.0); Mean Corpuscular HGB Conc 32.4 g/dL (31.8-35.4); Mean Corpuscular Hemoglobin 25.4 pg (27.0-31.2); Mean Corpuscular Volume 78.2 fl (80-94); Platelet Count 370 K/mm3 (142-424); Red Blood Count 4.58 M/mm3 (4.60-6.20); Red Cell Distribution Width 13.6 % (11.5-17.5); White Blood Count 5.1 K/mm3 (4.8-10.8)
[2022-06-21 16:12] LABS: Albumin Level 3.9 g/dl (3.5-5.0); Anion Gap 8.7 mEq/L (5-15); Blood Urea Nitrogen 22 mg/dl (9-20); Calcium 8.8 mg/dl (8.4-10.2); Carbon Dioxide 34 mmol/L (22.0-30.0); Chloride 99 mmol/L (98-107); Estimated Glomerular Filt Rate 28 ml/min (>60); GFR (African American) 34 ML/MIN (>60); Glucose 157 mg/dl (74-100); Phosphorous 2.4 mg/dl (2.5-4.5); Sodium 139 mmol/L (136-145)
[2022-06-21 16:20] LABS: Appearance,Urine CLEAR (Clear); Bilirubin,Urine Negative (Negative); Blood, Urine 1+ (Negative); Color,Urine YELLOW (Yellow); Glucose,Urine (UA) TRACE (Negative); Ketones,Urine Negative (Negative); Leukocyte Esterase,Urine Negative (Negative); Nitrate,Urine Negative (Negative); Protein,Urine 3+ (Negative); Specific Gravity, Urine 1.015 (1.005-1.030); Urobilinogen,Urine 0.2 EU/dl (0.2)
[2022-06-21 16:26] LABS: WBC,Urine Occasional #/hpf (0-3)
[2022-06-21 16:34] LABS: Potassium 2.7 mmoL/L (3.5-5.1)
== END ==
PROVIDERS: PCP Family Medicine; Visit Provider Internal Medicine Nephrology
DX: N18.4 Chronic kidney disease, stage 4 (severe) (principal)
CPT/HCPCS: 36415; 80069; 81001; 82570; 84155; 85014; 85018; 85048; 85049

== ENCOUNTER → 2022-06-24 14:34 | Outpatient (POV) | payer MEDICARE, SELFPAY | PROVIDERS: Visit Provider Internal Medicine Nephrology | DX: Z00.00 Encounter for general adult medical examination without abnormal findings (principal) ==

== ENCOUNTER → 2022-06-24 15:13 | Outpatient (CLI) | payer MEDICARE, SELFPAY ==
[2022-06-24 17:35] LABS: Potassium 2.9 mmoL/L (3.5-5.1)
[2022-06-26 10:26] LABS: HIV Screen 4th Generation wRfx Non Reactive (Non Reactive)
[2022-06-27 05:02] LABS: Complement C3 225 mg/dL (82-167)
[2022-06-28 12:27] LABS: Albumin 3.6 g/dL (2.9-4.4); Alpha-1-Globulin 0.3 g/dL (0.0-0.4); Alpha-2-Globulin 1.3 g/dL (0.4-1.0); Gamma Globulin 0.9 g/dL (0.4-1.8); Protein, Total 7.5 g/dL (6.0-8.5)
[2022-06-28 13:09] LABS: Immunoglobulin A, Qn 233 mg/dL (61-437); Immunoglobulin G, Qn 1060 mg/dL (603-1613); Immunoglobulin M, Qn 70 mg/dL (20-172)
[2022-07-02 20:11] LABS: Free Kappa Lt Chains 75.8; Hep A Ab, IgM NEGATIVE; Hepatitis B Core Antibody IgM NEGATIVE; Hepatitis B Surface Antigen NEGATIVE; Hepatitis C Antibody <0.1
[2022-07-02 20:12] LABS: Free Lambda Lt Chains 51.2
[2022-07-02 20:13] LABS: Antinuclear Antibodies (ANA) NEGATIVE
== END ==
PROVIDERS: PCP Family Medicine; Visit Provider Internal Medicine Nephrology
DX: N18.4 Chronic kidney disease, stage 4 (severe) (principal); E87.6 Hypokalemia; R80.1 Persistent proteinuria, unspecified; Z11.4 Encounter for screening for human immunodeficiency virus [HIV]; R74.8 Abnormal levels of other serum enzymes; D84.1 Defects in the complement system
CPT/HCPCS: 36415; 80074; 82784; 83883; 84132; 84155; 84165; 86038; 86161; 86334; 86703; G0432

== ENCOUNTER → 2022-06-26 11:19 | Outpatient (CLI) | payer MEDICARE, SELFPAY ==
[2022-06-26 12:41] LABS: Total Volume,Urine 1800 mL (250-2400)
[2022-06-26 12:48] LABS: Total Protein 24 Hour,Urine 7416 mg/24 hr (40-90)
[2022-06-27 10:54] LABS: Creatinine, Ur 24hr 776 mg/24 hr (1000-2000); Creatinine, Urine 43.1 mg/dL (Not Estab.)
== END ==
PROVIDERS: PCP Family Medicine; Visit Provider Internal Medicine Nephrology
DX: R80.9 Proteinuria, unspecified (principal)
CPT/HCPCS: 82570; 84155

== ENCOUNTER → 2022-07-20 14:11 | Outpatient (CLI) | payer MEDICARE, SELFPAY ==
[2022-07-20 15:04] LABS: Potassium 3.6 mmoL/L (3.5-5.1)
== END ==
PROVIDERS: PCP Family Medicine; Visit Provider Family Medicine
DX: E87.6 Hypokalemia (principal)
CPT/HCPCS: 36415; 84132

== ENCOUNTER → 2022-09-24 10:21 | Outpatient (POV) | payer MEDICARE, SELFPAY ==
[2022-09-24 11:02] VITALS: BP 145/97; PULSE 99; RESP 19; O2SAT 99; BMI 24.4
--- NOTE | 2022-09-24 13:28 | EXP.PAIN.OV ---
HPI Data of Consult Patient: new to practice Consult date: 09/24/22 Requesting Physician: Samantha Westbrook APRN Primary Care Provider: Matthew Velazquez MD Consult Narrative Reason for consult: Bilateral knee pain History of present illness: Mr. Minor is a 67 year old male who presents today as a new patient. He is a referral from Dr. Westbrook's office from here at [facility]. Today he rates his pain a 10 out of 10. He states his pain is all in his bilateral knees and describes it as an aching, sharp sensation with throbbing that is been going on for approximately 2 years. He does state this pain interferes with his ability to perform activities of daily living such as cooking or cleaning or even simple ambulation. He denies any specific injury or trauma that initially started his pain symptoms however he states is progressively worsened over time. Patient has had gel injections from Dr. Westbrook's office however this did nothing for his pain symptoms. He states his knees are [id number] and that Dr. Westbrook wanted to try injective therapy first before proceeding forward with a possible total joint replacement. Patient states that he typically has increased blood pressure from oral steroid use. Patient has tried [id number] Tylenol and ibuprofen with no additional relief. He is also tried heat and ice and topicals. Patient states that he has not done any recent physical therapy however he is not interested due to the amount of pain he is already in. Patient is not on any scheduled medications. Patient does have a history of cardiac stents and is currently on a baby aspirin. His Kevin is [phone]. Its been reviewed and appropriate. CC: Samantha Westbrook APRN [facility] Disclaimer: The information contained in this section may have been updated after the patient was seen, as this information can be updated by other users. Medical History (Updated 09/24/22 @ 13:35 by Samantha Westbrook APRN) Diabetes Gout HLD (hyperlipidemia) HTN (hypertension) Hypothyroidism PVD (peripheral vascular disease) Social History (Updated 09/24/22 @ 11:04 by Brit Terrell RN) Smoking Status: Former smoker alcohol intake: never substance use type: denies use current occupational status: retired Travel in the last 8 weeks: None household members: spouse housing: house Review of Systems Review of Systems Review of systems:: pertinent systems reviewed and negative unless documented below Review of systems (narrative): Review of Systems: General: No recent weight changes, no fever, no sleep disturbances Respiratory: No cough, no shortness of air, no recurring pulmonary infections Cardiovascular/peripheral vascular: No chest pain, no palpitations, no edema, no shortness of breath Gastrointestinal: No new onset incontinence, normal bowel movements reported Genitourinary: No new onset incontinence Musculoskeletal: Bilateral knee pain Psychiatric: [Normal mood/affect] Neurological: [Denies weakness in extremities], [denies balance issues] Meds Home Medications and Allergies Home Medications Medication Instructions Recorded Confirmed Type carvedilol 25 mg tablet 25 mg PO DAILY htn 09/07/18 09/24/22 History levothyroxine 75 mcg tablet 75 mcg PO DAILY thyroid 09/07/18 09/24/22 History oxycodone-acetaminophen 5 mg-325 1 tab PO Q6HP PRN Moderate To 09/07/18 09/24/22 Rx mg tablet Severe Pain #12 tabs pravastatin 80 mg tablet 80 mg PO HS Cholesterol 09/07/18 09/24/22 History rivaroxaban 2.5 mg tablet 2.5 mg PO DAILY stent 09/07/18 09/24/22 History spironolactone 25 mg tablet 25 mg PO DAILY Fluid 09/07/18 09/24/22 History allopurinol 300 mg tablet 300 mg PO DAILY GOUT 11/21/18 09/24/22 History amlodipine 10 mg tablet 10 mg PO DAILY BLOOD PRESSURE 11/21/18 09/24/22 History aspirin 81 mg tablet,delayed 81 mg PO DAILY Blood thinner 11/21/18 09/24/22 History release garlic 1,000 mg capsule 1,000 mg PO QPC SUPPLIMENT 11/21/18 09/24/22 His
== END ==
PROVIDERS: PCP Family Medicine; Visit Provider Nurse Practitioner Family
DX: M17.0 Bilateral primary osteoarthritis of knee (principal); M25.561 Pain in right knee; M25.562 Pain in left knee
CPT/HCPCS: 99202; G0463

== ENCOUNTER 2022-10-05 10:15 | Day surgery (SDC) | payer MEDICARE, SELFPAY ==
[2022-10-05 10:23] VITALS: BP 161/74; PULSE 81; RESP 18; TEMP 36.8; O2SAT 97; BMI 24.7
[2022-10-05 10:36] VITALS: BP 162/78; PULSE 86; RESP 18; O2SAT 97
[2022-10-05 10:37] VITALS: BP 162/78; PULSE 86; RESP 18; O2SAT 97
[2022-10-05 10:42] VITALS: BP 161/64; PULSE 73; RESP 18; O2SAT 97
--- NOTE | 2022-10-05 10:43 | EXP.PAIN.PRO ---
Procedure Date: 10/05/22 Time: 10:40 Anesthesiologist:: Orlin García CRNA Complications:: None Pre-procedure Diagnosis:: Osteoarthritis bilateral knees. Chronic bilateral knee pain. Post-procedure Diagnosis:: Same. Indications for Procedure:: Patient is a very pleasant 67-year-old male that comes our clinic today for a left genicular nerve block. Patient had adverse reaction to oral steroids in the past. We will not use steroids today for his block. Patient is requesting local only. He complains of bilateral knee pain. Patient had orthopedic surgery consultation. Patient not interested in knee replacement at this time. Procedure Details:: Left knee genicular block Informed consent was obtained and the risk and benefits of the procedure was explained to the patient. The patient was taken to the procedure room. The left knee was prepped using ChloraPrep. I placed 22-gauge needles into the area of the left superior medial genicular nerve, left superior lateral genicular nerve and left inferior medial genicular nerve. Needle placement was confirmed in AP and lateral views with dye. We then injected bupivacaine 0.25% 3 mL's into each area of the left superior medial genicular nerve, left superior lateral genicular nerve and left inferior medial genicular nerve. Patient tolerated the procedure well with no complications. Plan and Disposition:: Patient was discharged without incident. Patient reported no pain in the left knee prior to discharge.
== END 2022-10-05 10:42 | disposition home or self-care (01) ==
PROVIDERS: PCP Family Medicine; Visit Provider Nurse Anesthetist, Certified Registered
DX: M17.0 Bilateral primary osteoarthritis of knee (principal); M25.561 Pain in right knee; M25.562 Pain in left knee
CPT/HCPCS: 64454

== ENCOUNTER → 2022-10-27 10:38 | Outpatient (POV) | payer MEDICARE, SELFPAY ==
[2022-10-27 11:15] VITALS: BP 176/92; PULSE 57; RESP 18; O2SAT 97; BMI 24.4
--- NOTE | 2022-10-27 11:32 | EXP.PAIN.SOA ---
[facility] Pain Management SOAP Note Subjective:: Patient is a pleasant 67-year-old male who presents today for follow-up of left genicular nerve block on 10/05/2022. We are currently treating the patient for osteoarthritis of bilateral knees, bilateral knee pain. Today he rates his pain a 10 out of 10. Patient states that he did have 100% improvement following the genicular nerve block lasting a couple of hours. Patient is unable to tolerate steroids and only had the numbing medication for this injection. Patient does state that he is back to his baseline today and describes this as a chronic aching, sharp sensation with throbbing that interferes with his ability to perform activities of daily living. He states that even simple ambulation is very painful. He has been to an orthopedic doctor and done gel injections with no improvement and was told that he had [id number] in his knees. Patient continues to want to hold off on total joint replacement and trying conservative therapies first. Patient has tried [id number] medications along with heat and ice and topicals with no additional relief. Patient does have a history of cardiac stents and is on baby aspirin and cannot tolerate NSAIDs any longer. He is [facility] is [phone]. Its been reviewed and appropriate. Review of Systems: General: No recent weight changes, no fever, no sleep disturbances Respiratory: No cough, no shortness of air, no recurring pulmonary infections Cardiovascular/peripheral vascular: No chest pain, no palpitations, no edema, no shortness of breath Gastrointestinal: No new onset incontinence, normal bowel movements reported Genitourinary: No new onset incontinence Musculoskeletal: Left knee pain Psychiatric: [Normal mood/affect] Neurological: [Denies weakness in extremities], [denies balance issues] Objective:: Physical Exam: General: Alert and oriented x3, no acute distress, pleasant and cooperative Lungs: Respirations even and unlabored, symmetrical chest expansion Eyes: PERRL Musculoskeletal: Flexion and extension of left knee somewhat guarded secondary to pain, [antalgic gait noted] Neurological: Speech clear, no gross sensory deficit Assessment:: Bilateral knee pain, osteoarthritis bilateral knees Plan:: Patient had 100% improvement following his first genicular nerve block on his left knee however due to not being able to tolerate steroids he only had approximately 2 hours of this relief with the numbing medication. I have discussed with the patient that he may benefit repeating this injection with the plan to proceed forward with the ablation if he continues to get significant relief. Risk and benefits were discussed with the patient and he would like to proceed forward with this plan of care. We will schedule the patient for a left genicular nerve block #2. Patient has been instructed to contact the clinic with any concerns before the next appointment. Dr. Salvador has reviewed this note and agrees with this plan of care. This note was dictated using voice recognition software and make contain errors or omissions. [facility] Disclaimer: The information contained in this section may have been updated after the patient was seen, as this information can be updated by other users. Medical History Diabetes Gout HLD (hyperlipidemia) HTN (hypertension) Hypothyroidism PVD (peripheral vascular disease) Family History (Updated 10/05/22 @ 10:23 by Julissa Crews RN) Other No significant family history Social History Smoking Status: Former smoker alcohol intake: never substance use type: denies use current occupational status: retired Travel in the last 8 weeks: None household members: spouse housing: house
== END ==
PROVIDERS: PCP Family Medicine; Visit Provider Nurse Practitioner Family
DX: M17.0 Bilateral primary osteoarthritis of knee (principal); M25.561 Pain in right knee; M25.562 Pain in left knee
CPT/HCPCS: 99212; G0463

== ENCOUNTER 2022-11-02 10:32 | Day surgery (SDC) | payer MEDICARE, SELFPAY ==
[2022-11-02 11:00] VITALS: BP 203/105; PULSE 53; RESP 18; TEMP 36.4; O2SAT 99; BMI 21.7
--- NOTE | 2022-11-02 11:01 | PC.NURSE ---
provider made aware of pt bp
--- NOTE | 2022-11-02 11:07 | EXP.PAIN.PRO ---
Procedure Date: 11/02/22 Time: 10:50 Anesthesiologist:: Orlin García CRNA Complications:: None Pre-procedure Diagnosis:: Arthritis left knee. Chronic left knee pain. Post-procedure Diagnosis:: Same. Indications for Procedure:: Patient is a very pleasant 67-year-old male that comes our clinic today for repeat left genicular nerve block. Patient had negative reaction to steroids in the past resulted in hypertension. Patient did not receive steroids with his last genicular nerve block. We will hold steroids today as well. He reports 2 to 3 hours of significant improvement terms of his overall left knee pain with his first genicular block. Procedure Details:: Left knee genicular block Informed consent was obtained and the risk and benefits of the procedure was explained to the patient. The patient was taken to the procedure room. The left knee was prepped using ChloraPrep. I placed 22-gauge needles into the area of the left superior medial genicular nerve, left superior lateral genicular nerve and left inferior medial genicular nerve. Needle placement was confirmed in AP and lateral views with dye. We then injected bupivacaine 0.25% 3 mL's and Depo-Medrol 25 mg into each area of the left superior medial genicular nerve, left superior lateral genicular nerve and left inferior medial genicular nerve. Patient tolerated the procedure well with no complications. Plan and Disposition:: Patient was discharged without incident.
[2022-11-02 11:10] VITALS: BP 138/93; PULSE 55; RESP 16; O2SAT 99
== END 2022-11-02 11:10 | disposition home or self-care (01) ==
PROVIDERS: PCP Family Medicine; Visit Provider Nurse Anesthetist, Certified Registered
DX: M17.12 Unilateral primary osteoarthritis, left knee (principal); M25.562 Pain in left knee; G89.29 Other chronic pain
CPT/HCPCS: 64454

== ENCOUNTER → 2022-11-18 09:51 | Outpatient (POV) | payer MEDICARE, SELFPAY ==
[2022-11-18 09:56] VITALS: BP 180/90; PULSE 68; RESP 18; O2SAT 98; BMI 22.1
--- NOTE | 2022-11-18 09:58 | EXP.PAIN.SOA ---
[facility] Pain Management SOAP Note Subjective:: Patient is a pleasant 67-year-old male who presents today for his follow-up of his second left genicular nerve block. We are currently treating the patient for osteoarthritis bilateral knees, bilateral knee pain. Today he does rate his pain a 10 out of 10. Patient denies any new trauma or injury. Patient denies any change location or type of pain that he experiences. Patient does states that he had 100% relief while the numbing medication was working. Patient is unable to tolerate steroids and only had lidocaine injected. Patient does describe his pain today as a constant aching, sharp sensation that does interfere with his ability perform activities of daily living such as cooking or cleaning or even ambulation. Patient is wanting to prolong having to have a total knee replacement. Patient has had 100% with both of these nerve blocks however only lasting a few hours with each due to the lack of steroid use. Patient has tried and failed conservative therapy such as oral medications, heat and ice, topicals, physical therapy, at home stretching for longer than 6 weeks as well as gel and intra-articular injections. Patient is not on any scheduled medications. His Kevin is [phone]. Its been reviewed and appropriate. Review of Systems: General: No recent weight changes, no fever, no sleep disturbances Respiratory: No cough, no shortness of air, no recurring pulmonary infections Cardiovascular/peripheral vascular: No chest pain, no palpitations, no edema, no shortness of breath Gastrointestinal: No new onset incontinence, normal bowel movements reported Genitourinary: No new onset incontinence Musculoskeletal: Left knee pain Psychiatric: [Normal mood/affect] Neurological: [Denies weakness in extremities], [denies balance issues] Objective:: Physical Exam: General: Alert and oriented x3, no acute distress, pleasant and cooperative Lungs: Respirations even and unlabored, symmetrical chest expansion Eyes: PERRL Musculoskeletal: Flexion and extension of left knee somewhat guarded secondary to pain, [antalgic gait noted] Neurological: Speech clear, no gross sensory deficit Assessment:: Osteoarthritis bilateral knees, bilateral knee pain Plan:: Patient has had 2 successful genicular nerve blocks with 100% relief. I have discussed with the patient that he may benefit from a genicular RFA. Risk and benefits were discussed with the patient and he would like to proceed forward with this plan of care. Patient has tried and failed conservative therapy such as oral medications, heat and ice, topicals, physical therapy, at home stretching and exercise for longer than 6 weeks as well as gel and intra-articular injection. Patient will be scheduled for a left genicular RFA. Patient has been instructed to contact the clinic with any concerns before the next appointment. Dr. Salvador has reviewed this note and agrees with this plan of care. This note was dictated using voice recognition software and make contain errors or omissions. [facility] Disclaimer: The information contained in this section may have been updated after the patient was seen, as this information can be updated by other users. Medical History Diabetes Gout HLD (hyperlipidemia) HTN (hypertension) Hypothyroidism PVD (peripheral vascular disease) Family History Other No significant family history Social History Smoking Status: Former smoker alcohol intake: never substance use type: denies use current occupational status: retired Travel in the last 8 weeks: None household members: spouse housing: house
== END ==
PROVIDERS: PCP Family Medicine; Visit Provider Nurse Practitioner Family
DX: M17.0 Bilateral primary osteoarthritis of knee (principal); M25.561 Pain in right knee; M25.562 Pain in left knee
CPT/HCPCS: 99212; G0463

== ENCOUNTER → 2022-12-20 13:21 | Outpatient (CLI) | payer MEDICARE, SELFPAY ==
[2022-12-20 13:29] LABS: Microscopic, Urine URINE MICROSCOPIC (MICROSCOPIC)
[2022-12-20 14:43] LABS: Appearance,Urine CLEAR (Clear); Bilirubin,Urine Negative (Negative); Blood, Urine 1+ (Negative); Color,Urine YELLOW (Yellow); Glucose,Urine (UA) TRACE (Negative); Ketones,Urine Negative (Negative); Leukocyte Esterase,Urine Negative (Negative); Nitrate,Urine Negative (Negative); Protein,Urine 3+ (Negative); Specific Gravity, Urine 1.015 (1.005-1.030); Urobilinogen,Urine 0.2 EU/dl (0.2)
[2022-12-20 15:22] LABS: RBC,Urine Occasional #/hpf (0-3); Squamous Epithelial Cell,Urine Occasional #/hpf (0-5)
[2022-12-20 15:43] LABS: Albumin Level 3.6 g/dl (3.5-5.0); Anion Gap 11.4 mEq/L (5-15); Blood Urea Nitrogen 39 mg/dl (9-20); Calcium 8.7 mg/dl (8.4-10.2); Carbon Dioxide 29 mmol/L (22.0-30.0); Chloride 100 mmol/L (98-107); Estimated Glomerular Filt Rate 16 ml/min (>60); GFR (African American) 20 ML/MIN (>60); Glucose 135 mg/dl (74-100); Phosphorous 4.2 mg/dl (2.5-4.5); Potassium 3.4 mmoL/L (3.5-5.1); Sodium 137 mmol/L (136-145)
[2022-12-20 16:14] LABS: Basophils % 0.2 % (0.1-2.0); Eosinophils # 0.1 K/mm3 (0.0-0.4); Eosinophils % 2.3 % (0.1-12.0); Hematocrit 32.6 % (42.0-52.0); Hemoglobin 10.1 g/dL (14.1-18.0); Lymphocytes # 1.1 K/mm3 (0.7-4.5); Lymphocytes % 28.1 % (10-50); Mean Corpuscular Hemoglobin 24.3 pg (27.0-31.2); Mean Corpuscular Volume 78.3 fl (80-94); Mean Platelet Volume 10.1 fl (7.4-10.4); Monocytes # 0.2 K/mm3 (0.1-1.0); Monocytes % 4.5 % (1.7-9.3); Neutrophils # 2.5 K/mm3 (1.8-7.8); Platelet Count 278 K/mm3 (142-424); Red Blood Count 4.16 M/mm3 (4.60-6.20); Red Cell Distribution Width 15.5 % (11.5-17.5); White Blood Count 3.8 K/mm3 (4.8-10.8)
[2022-12-20 17:24] LABS: Creatinine,Urine Random 55 mg/dL (Not Estab.)
== END ==
PROVIDERS: PCP Family Medicine; Visit Provider Internal Medicine Nephrology
DX: N18.4 Chronic kidney disease, stage 4 (severe) (principal)
CPT/HCPCS: 36415; 80069; 81001; 82570; 84155; 85025

== ENCOUNTER → 2023-01-31 12:48 | Outpatient (POV) | payer MEDICARE, SELFPAY | PROVIDERS: Visit Provider Internal Medicine Nephrology | DX: Z00.00 Encounter for general adult medical examination without abnormal findings (principal) ==

== ENCOUNTER → 2023-01-31 14:29 | Outpatient (CLI) | payer MEDICARE, SELFPAY ==
[2023-01-31 15:37] LABS: Hematocrit 32.6 % (42.0-52.0); Hemoglobin 10.4 g/dL (14.1-18.0); Mean Corpuscular HGB Conc 31.9 g/dL (31.8-35.4); Mean Corpuscular Hemoglobin 24.5 pg (27.0-31.2); Mean Corpuscular Volume 76.8 fl (80-94); Platelet Count 305 K/mm3 (142-424); Red Blood Count 4.25 M/mm3 (4.60-6.20); Red Cell Distribution Width 14.5 % (11.5-17.5); White Blood Count 5.1 K/mm3 (4.8-10.8)
[2023-01-31 15:43] LABS: Chloride 104 mmol/L (98-107); Sodium 143 mmol/L (136-145)
[2023-01-31 15:44] LABS: Albumin Level 3.6 g/dl (3.5-5.0)
[2023-01-31 15:46] LABS: Blood Urea Nitrogen 36 mg/dl (9-20); Carbon Dioxide 26 mmol/L (22.0-30.0); Estimated Glomerular Filt Rate 18 ml/min (>60); GFR (African American) 22 ML/MIN (>60); Iron 32 ug/dL (49-181)
[2023-01-31 15:47] LABS: Calcium 9.4 mg/dl (8.4-10.2); Glucose 111 mg/dl (74-100); Phosphorous 4.1 mg/dl (2.5-4.5)
[2023-01-31 15:56] LABS: Total Iron Binding Capacity 400 ug/dL (261-462)
[2023-01-31 16:22] LABS: Ferritin 19.1 ng/ml (17.9-464)
[2023-01-31 17:09] LABS: Anion Gap 16.1 mEq/L (5-15); Potassium 3.1 mmoL/L (3.5-5.1)
== END ==
PROVIDERS: PCP Family Medicine; Visit Provider Internal Medicine Nephrology
DX: N18.4 Chronic kidney disease, stage 4 (severe) (principal); D64.9 Anemia, unspecified; D50.9 Iron deficiency anemia, unspecified
CPT/HCPCS: 36415; 80069; 82728; 83540; 83550; 85014; 85018; 85048; 85049

== ENCOUNTER 2023-03-10 14:24 | Outpatient (CLI) | payer MEDICARE, SELFPAY ==
[2023-03-10 14:51] VITALS: BP 188/80; PULSE 79; RESP 18; O2SAT 97; BMI 24.3
[2023-03-10 15:07] LABS: Basophils % 0.2 % (0.1-2.0); Eosinophils # 0.1 K/mm3 (0.0-0.4); Eosinophils % 2.5 % (0.1-12.0); Hematocrit 28.4 % (42.0-52.0); Hemoglobin 9.6 g/dL (14.1-18.0); Lymphocytes # 0.8 K/mm3 (0.7-4.5); Lymphocytes % 22.9 % (10-50); Mean Corpuscular HGB Conc 33.8 g/dL (31.8-35.4); Mean Corpuscular Hemoglobin 25.9 pg (27.0-31.2); Mean Corpuscular Volume 76.8 fl (80-94); Mean Platelet Volume 8.6 fl (7.4-10.4); Monocytes # 0.2 K/mm3 (0.1-1.0); Monocytes % 5.3 % (1.7-9.3); Neutrophils # 2.4 K/mm3 (1.8-7.8); Platelet Count 258 K/mm3 (142-424); Red Blood Count 3.69 M/mm3 (4.60-6.20); Red Cell Distribution Width 14.9 % (11.5-17.5); White Blood Count 3.5 K/mm3 (4.8-10.8)
[2023-03-10 15:30] VITALS: BP 178/80; PULSE 84; RESP 18; O2SAT 98
== END 2023-03-10 15:40 | disposition home or self-care (01) ==
LOC: INF 14:26
PROVIDERS: PCP Family Medicine; Visit Provider Internal Medicine Nephrology
DX: N18.4 Chronic kidney disease, stage 4 (severe) (principal); D63.1 Anemia in chronic kidney disease
CPT/HCPCS: 85025; 96365; J1756

== ENCOUNTER 2023-03-17 14:11 | Outpatient (CLI) | payer MEDICARE, SELFPAY ==
[2023-03-17 14:50] VITALS: BP 146/70; PULSE 59; RESP 18; TEMP 36.8; O2SAT 98
[2023-03-17 15:30] VITALS: BP 148/72; PULSE 78
== END 2023-03-17 15:40 | disposition home or self-care (01) ==
LOC: INF 14:13
PROVIDERS: PCP Family Medicine; Visit Provider Internal Medicine Nephrology
DX: N18.4 Chronic kidney disease, stage 4 (severe) (principal); N18.9 Chronic kidney disease, unspecified; D63.1 Anemia in chronic kidney disease
CPT/HCPCS: 96365; J1756

== ENCOUNTER → 2023-03-21 16:11 | Outpatient (CLI) | payer MEDICARE, SELFPAY ==
[2023-03-21 16:23] LABS: Microscopic, Urine URINE MICROSCOPIC (MICROSCOPIC)
[2023-03-21 16:58] LABS: Hematocrit 30.1 % (42.0-52.0); Hemoglobin 10.1 g/dL (14.1-18.0); Mean Corpuscular HGB Conc 33.5 g/dL (31.8-35.4); Mean Corpuscular Hemoglobin 25.8 pg (27.0-31.2); Platelet Count 238 K/mm3 (142-424); Red Blood Count 3.91 M/mm3 (4.60-6.20); Red Cell Distribution Width 16.1 % (11.5-17.5); White Blood Count 3.8 K/mm3 (4.8-10.8)
[2023-03-21 17:00] LABS: Appearance,Urine CLEAR (Clear); Bilirubin,Urine Negative (Negative); Blood, Urine TRACE-I (Negative); Color,Urine YELLOW (Yellow); Glucose,Urine (UA) Negative (Negative); Ketones,Urine Negative (Negative); Leukocyte Esterase,Urine Negative (Negative); Nitrate,Urine Negative (Negative); Protein,Urine 3+ (Negative); Urobilinogen,Urine 0.2 EU/dl (0.2)
[2023-03-21 18:06] LABS: Chloride 104 mmol/L (98-107)
[2023-03-21 18:07] LABS: Potassium 3.5 mmoL/L (3.5-5.1); Sodium 139 mmol/L (136-145)
[2023-03-21 18:08] LABS: RBC,Urine Occasional #/hpf (0-3); Squamous Epithelial Cell,Urine Occasional #/hpf (0-5); WBC,Urine Occasional #/hpf (0-3)
[2023-03-21 18:09] LABS: Blood Urea Nitrogen 30 mg/dl (9-20); Estimated Glomerular Filt Rate 20 ml/min (>60); GFR (African American) 24 ML/MIN (>60); Iron 51 ug/dL (49-181)
[2023-03-21 18:10] LABS: Anion Gap 9.5 mEq/L (5-15); Calcium 8.6 mg/dl (8.4-10.2); Carbon Dioxide 29 mmol/L (22.0-30.0); Glucose 100 mg/dl (74-100); Phosphorous 4.1 mg/dl (2.5-4.5)
[2023-03-21 18:11] LABS: Creatinine,Urine Random 52 mg/dL (Not Estab.)
[2023-03-21 18:19] LABS: Total Iron Binding Capacity 320 ug/dL (261-462)
[2023-03-21 18:46] LABS: Ferritin 125 ng/ml (17.9-464)
== END ==
PROVIDERS: PCP Family Medicine; Visit Provider Internal Medicine Nephrology
DX: N18.4 Chronic kidney disease, stage 4 (severe) (principal)
CPT/HCPCS: 36415; 80069; 81001; 82570; 82728; 83540; 83550; 84155; 85014; 85018; 85048; 85049

== ENCOUNTER 2023-03-24 12:17 | Outpatient (CLI) | payer MEDICARE, SELFPAY ==
[2023-03-24 12:53] VITALS: BP 147/62; PULSE 70; RESP 18; O2SAT 98
[2023-03-24 13:32] VITALS: BP 156/74; PULSE 64; RESP 18; O2SAT 98
== END 2023-03-24 13:32 | disposition home or self-care (01) ==
LOC: INF 12:18
PROVIDERS: PCP Family Medicine; Visit Provider Internal Medicine Nephrology
DX: N18.4 Chronic kidney disease, stage 4 (severe) (principal); D63.1 Anemia in chronic kidney disease
CPT/HCPCS: 96365; J1756

== ENCOUNTER → 2023-03-24 14:23 | Outpatient (POV) | payer MEDICARE, SELFPAY | PROVIDERS: Visit Provider Internal Medicine Nephrology | DX: Z00.00 Encounter for general adult medical examination without abnormal findings (principal) ==

== ENCOUNTER 2023-03-31 14:14 | Outpatient (CLI) | payer MEDICARE, SELFPAY ==
[2023-03-31 14:57] VITALS: BP 162/75; PULSE 69; RESP 16; TEMP 36.8; O2SAT 97
[2023-03-31 15:33] VITALS: BP 159/80; PULSE 78; RESP 16; TEMP 36.8; O2SAT 98
== END 2023-03-31 15:40 | disposition home or self-care (01) ==
LOC: INF 14:16
PROVIDERS: PCP Family Medicine; Visit Provider Internal Medicine Nephrology
DX: N18.4 Chronic kidney disease, stage 4 (severe) (principal); D63.1 Anemia in chronic kidney disease
CPT/HCPCS: 96365; J1756

== ENCOUNTER 2023-04-07 14:22 | Outpatient (CLI) | payer MEDICARE, SELFPAY ==
[2023-04-07 14:45] VITALS: BP 159/81; PULSE 69; RESP 18; TEMP 36.8; O2SAT 97
[2023-04-07 15:30] VITALS: BP 178/81; PULSE 74
== END 2023-04-07 15:45 | disposition home or self-care (01) ==
LOC: INF 14:26
PROVIDERS: PCP Family Medicine; Visit Provider Internal Medicine Nephrology
DX: N18.4 Chronic kidney disease, stage 4 (severe) (principal); D63.1 Anemia in chronic kidney disease
CPT/HCPCS: 96365; J1756

== ENCOUNTER → 2023-05-26 12:41 | Outpatient (POV) | payer MEDICARE, SELFPAY ==
[2023-05-26 13:22] LABS: Microscopic, Urine URINE MICROSCOPIC (MICROSCOPIC)
[2023-05-26 13:47] LABS: Basophils % 0.2 % (0.1-2.0); Eosinophils # 0.1 K/mm3 (0.0-0.4); Eosinophils % 2.4 % (0.1-12.0); Hematocrit 37.6 % (42.0-52.0); Lymphocytes # 1.2 K/mm3 (0.7-4.5); Lymphocytes % 24.8 % (10-50); Mean Corpuscular Hemoglobin 26.7 pg (27.0-31.2); Mean Corpuscular Volume 83.6 fl (80-94); Mean Platelet Volume 7.3 fl (7.4-10.4); Monocytes # 0.2 K/mm3 (0.1-1.0); Monocytes % 4.8 % (1.7-9.3); Neutrophils # 3.2 K/mm3 (1.8-7.8); Neutrophils % 67.7 % (37.0-80.0); Platelet Count 248 K/mm3 (142-424); Red Cell Distribution Width 17.2 % (11.5-17.5); White Blood Count 4.7 K/mm3 (4.8-10.8)
[2023-05-26 13:51] LABS: Albumin Level 3.7 g/dl (3.5-5.0); Anion Gap 10.3 mEq/L (5-15); Blood Urea Nitrogen 42 mg/dl (9-20); Calcium 8.4 mg/dl (8.4-10.2); Carbon Dioxide 28 mmol/L (22.0-30.0); Chloride 102 mmol/L (98-107); Estimated Glomerular Filt Rate 16 ml/min (>60); GFR (African American) 20 ML/MIN (>60); Glucose 126 mg/dl (74-100); Phosphorous 4.9 mg/dl (2.5-4.5); Potassium 3.3 mmoL/L (3.5-5.1); Sodium 137 mmol/L (136-145)
[2023-05-26 13:56] LABS: Amorphous Sediment,Urine Trace /lpf; Mucus,Urine 1+ /lpf
[2023-05-26 13:58] LABS: Appearance,Urine Clear (Clear); Bilirubin,Urine Negative (Negative); Blood, Urine Negative (Negative); Color,Urine Yellow (Yellow); Glucose,Urine (UA) Negative (Negative); Ketones,Urine Negative (Negative); Leukocyte Esterase,Urine Negative (Negative); Nitrate,Urine Negative (Negative); Protein,Urine 3+ (Negative); Urobilinogen,Urine 0.2 EU/dl (0.2)
== END ==
LOC: SC 12:42
PROVIDERS: Visit Provider Internal Medicine Nephrology
DX: N18.4 Chronic kidney disease, stage 4 (severe) (principal)
CPT/HCPCS: 36415; 80069; 81001; 85025

== ENCOUNTER 2023-05-26 13:14 | Outpatient (CLI) | payer MEDICARE, SELFPAY | END 2023-05-26 23:59 | LOC: LAB 13:15 | PROVIDERS: PCP Family Medicine; Visit Provider Internal Medicine Nephrology | DX: N18.4 Chronic kidney disease, stage 4 (severe) (principal) ==

== ENCOUNTER 2023-06-09 14:35 | Outpatient (CLI) | payer MEDICARE, SELFPAY ==
--- NOTE | 2023-06-09 14:38 | XR_ITS ---
FINAL REPORT CLINICAL HISTORY: lt knee pain COMPARISON: 09/17/2021 FINDINGS: Left knee Three views were obtained. There is no acute fracture or dislocation. There are moderate and severe degenerative changes with severe medial compartment narrowing. Moderate joint effusion is identified. Note is made of vascular calcification. IMPRESSION: Moderate and severe degenerative changes. Moderate joint effusion. Reviewed, Interpreted and Dictated by Jurgen Espinoza III, MD Transcribed by Emelyn Katz Authenticated and . [facility]
== END 2023-06-09 23:59 ==
LOC: RAD 14:36
PROVIDERS: PCP Family Medicine; Visit Provider Orthopaedic Surgery
DX: M25.562 Pain in left knee (principal)
CPT/HCPCS: 73562

== ENCOUNTER 2023-06-14 12:51 | Outpatient (CLI) | payer MEDICARE, SELFPAY ==
--- NOTE | 2023-06-14 | US_ITS ---
FINAL REPORT CLINICAL HISTORY: LT GROIN BULGE FINDINGS: Limited sonographic images of the left inguinal region were obtained. Bowel is seen extending into the left inguinal canal consistent with a hernia. IMPRESSION: Left inguinal hernia. CT is recommended. Reviewed, Interpreted and Dictated by Inderjit Fink MD Transcribed by Emelyn Katz Authenticated and [facility]
--- NOTE | 2023-06-14 12:55 | US_ITS ---
FINAL REPORT CLINICAL HISTORY: ABDOMINAL WALL BULGE-- RT FINDINGS: Limited sonographic images of the right inguinal region were obtained. Bowel is seen extending into the right inguinal region consistent with hernia. IMPRESSION: Right inguinal hernia as above. CT could better displayed. Reviewed, Interpreted and Dictated by Inderjit Fink MD Transcribed by Emelyn Katz Authenticated and [facility]
== END 2023-06-14 23:59 ==
LOC: RAD 12:52
PROVIDERS: PCP Family Medicine; Visit Provider Family Medicine
DX: R19.00 Intra-abdominal and pelvic swelling, mass and lump, unspecified site (principal)
CPT/HCPCS: 76882

== ENCOUNTER 2023-07-13 10:51 | Outpatient (CLI) | payer MEDICARE, SELFPAY ==
--- NOTE | 2023-07-13 | CA_ITS ---
APPROVED REPORT Exam: Pharmacologic Technologist: Tanya Adame, Ht: 6 ft 0 in Wt: 164 lbs BSA: 1.96 m2 HR: 109 bpm BP: 181/82 mmHg Rhythm: A fib with RVR, RBBB, PVCs Medical History Medications: Amlodipine,,,,, Lisinopril,,,,, Hydralazine,,,,, Aspirin,,,,, Pravastatin,,,,, Metformin,,,,, Allopurinol,,,,, Carvedilol,,,,, SpirOnolactone,,,,, RIvaROXABAN,,,,, Levothyoxine,,,,, OxYCODONE acetaminophen,,,,, Cardiac Risk Factors: HTN, Hyperlipidemia, Smoking Stress Test Details Test: LEXISCAN HR Resting HR: 121 bpm Max Heart Rate (APMHR): 151 bpm Max HR Achieved: 139 bpm Target HR (85% APMHR): 128 bpm % of APMHR: 92 Recovery HR: 129 bpm BP Resting BP: 181/82 mmHg Max BP: 181/82 mmHg Recovery BP: 146.0/77.0 mmHg ECG Resting ECG: Afib with RVR, RBBB, PVCs Stress ECG: No significant ST changes Arrhythmia: PVCs Clinical Exercise duration: 04:00 min Highest Stage Achieved: Stress ECG Conclusion During lexiscan pt experinced mild SOA and head discomfort. No CP noted. Ectopy: Occasional PVCs No significant ST changes. Conclusion: Nondiagnostic Lexiscan ECG stress test due to baseline abnormalities. Myoview images reported separately. Test Summary REST . . . . . . . Sitting REST 04:48 . . 121 . 181/ 82 . . Stage 1 01:00 . . 132 . . . . Stage 2 01:00 . . 135 . . . . Stage 3 01:00 . . 119 . 141/ 82 . . Stage 4 01:00 . . 112 . . . Stop exercise at 04:00 RECOVERY 01:00 . . 112 . 146/ 77 . . RECOVERY 02:00 . . 123 . 146/ 77 . . RECOVERY 03:00 . . 86 . 155/ 75 . . RECOVERY 03:19 . . 88 . 155/ 75 . . Electronically signed by : Mavis Dorsey MD 07/17/2023 02:08:44
--- NOTE | 2023-07-13 10:51 | CA_ITS ---
APPROVED REPORT EXAM: Comprehensive 2D, Doppler, and color-flow Echocardiogram Banquet Pilot: Stefany Sanchez RT(R) Ht: 6 ft 0 in Wt: 164lbs BSA: 1.96 BP: 140/71 mmHg Indications: CAD, Abn EKG, pre op clearance, RBBB 2D Dimensions LA Volume 57.30 mL LA Volume Index 29.23 mL/m2 (M/F) 16-34 EF AP4 54.30 % GL Strain -19.7 % M-Mode Dimensions RVDd 2.77 cm (0.9-2.6) LA Diam 3.96 cm (1.9-4.0) LVDd 4.70 cm (3.5-5.7) LVDs 3.46 cm (3.5-5.7) IVSd 1.21 cm (0.6-1.1) PWd 0.88 cm (0.6-1.1) EF (Teich) 51.70% FS 26.40% EDV (Teich) 102.40 mL ESV (Teich) 49.50 mL LV Diastology E Decel Time 193 (160-240 msec) E/A Ratio 1.4 Mitral Valve MV E Max Darnell. 130.0 (40-130 cm/s) MV A Velocity 96.0 (40-130 cm/s) E/A Ratio 1.35 MV PHT 57.0 ms Left Ventricle The left ventricle is normal size. The left ventricular systolic function is normal. The left ventricular ejection fraction is within the normal range. There is increased LV wall thickness (IVSd 1.3 cm). There is normal LV segmental wall motion. Diastolic dysfunction is indetermiante due to atrial fibrillation. LVEF is 55%. Right Ventricle The right ventricle is normal size. The right ventricular systolic function is normal. Atria Left atrium is mildly dilated. Right atrium is mildly dilated. Interatrial color Doppler assessment is not performed in this study. Aortic Valve The aortic valve is mildly thickened. There is no aortic valvular stenosis. Trace aortic regurgitation. Mitral Valve The mitral valve is mildly thickened. No evidence of mitral valve stenosis. Mild to moderate mitral regurgitation. Tricuspid Valve The tricuspid valve leaflets are thin and pliable. Mild tricuspid regurgitation. RVSP is 25-30 mmHg. Pulmonic Valve The pulmonary valve is normal in structure. Trace pulmonic regurgitation. Great Vessels The aortic root is normal in size. The ascending aorta is normal in size. IVC is normal in size and collapses >50% with inspiration. Pericardium Small-sized, circumferential pericardial effusion is present. No echo indications of tamponade. Other Information Study Quality: Fair Conclusion Normal biventricular systolic function. Increased LV wall thickness (IVSd 1.3 cm). Biatrial dilation. Mild to moderate MR. Mild TR. Small-sized, circumferential pericardial effusion is present. No echo indications of tamponade. Serial TTE to evalaute for pericardial effusion resolution vs. progression is recommended. Also, in the setting of increased LV wall thickness and biatrial dilation, further outpatient evaluation for infiltrative disease is recommended with cardiac MRI (amyloidosis protocol), PYP nuclear scan, and lab testing. Electronically signed by : Mavis Dorsey MD 07/15/2023 19:42:39
--- NOTE | 2023-07-13 11:22 | NM_ITS ---
APPROVED REPORT Exam: Nuclear Stress Test Indication: CAD, 3 STENTS, HTN, HYPERLIPIDEMIA, FM HX, DIZZINESS, FATIGUE, ABN EKG Patient Location: Outpatient Stress Tech: Tanya TAY Tech:EMIGDIO Thomas RT (R)(N)(M) Ht: 6 ft 1 in Wt: 163 lbs HR: 121 bpm BP: 181/82 mmHg BSA: 1.97 m2 Rhythm: NSR, NSR TID: 1.01 BMI: 21.5 History: CAD, 3 STENTS, HTN, HYPERLIPIDEMIA, FM HX, DIZZINESS, FATIGUE, ABN EKG Procedure: Patient received 0.4 mg of intravenous Lexiscan, resting heart rate 121 bpm, resting blood pressure 181/82 mmHg, with Lexiscan maximum heart rate achieved was 139 bpm which is % of the maximum predicted heart rate and blood pressure was 181/82 mmHg. With Lexiscan, patient denied any complaint of chest pain. Cardiac Stress and Resting SPECT Images: Cardiac Stress and Resting SPECT images were obtained using technetium 99m Myoview 32.9 mCi stress and 10.67 mCi at rest. Resting and stress imaging in supine and prone positions demonstrate a medium sized, moderate, fixed perfusion defect in the basal to mid inferior LV wall. Gated imaging demonstrates mild reduction in global LV systolic function. There is moderate hypokinesis of the basal inferior LV wall. LVEF is calculated at 45%.The LVEF calculation may be inaccurate in the setting of A-fib/RVR. Conclusion: Medium sized, moderate, fixed perfusion defect in the basal to mid inferior LV wall. No evidence of reversible ischemia. Gated imaging demonstrates mild reduction in global LV systolic function. There is moderate hypokinesis of the basal inferior LV wall. LVEF is calculated at 45%. The LVEF calculation may be inaccurate in the setting of A-fib/RVR. Electronically signed by : Mavis Dorsey MD 07/19/2023 12:54:15
[2023-07-13] MEDS: SODIUM CHLORIDE 0.9% 10ML SYR (RAD ONLY) 10 ML IV ×2 (11:35→13:11)
[2023-07-13] MEDS: ISOTOPE MYOVIEW (PER STUDY) 1 DOSE IV (13:11)
[2023-07-13] MEDS: REGADENOSON 0.4MG/5ML SYRINGE 0.400000000000000022 MG IV (13:11)
== END 2023-07-13 23:59 ==
LOC: RT 10:51
PROVIDERS: PCP Family Medicine; Visit Provider Nurse Practitioner
DX: I25.10 Atherosclerotic heart disease of native coronary artery without angina pectoris (principal); I45.10 Unspecified right bundle-branch block; R94.31 Abnormal electrocardiogram [ECG] [EKG]; Z01.810 Encounter for preprocedural cardiovascular examination
CPT/HCPCS: 78452; 93017; 93018; 93306; A9502; J2785

== ENCOUNTER 2023-07-25 11:45 | Outpatient (CLI) | payer MEDICARE, SELFPAY ==
[2023-07-25 11:57] LABS: Microscopic, Urine URINE MICROSCOPIC (MICROSCOPIC)
[2023-07-25 12:16] LABS: Hemoglobin 10.1 g/dL (14.1-18.0); Mean Corpuscular HGB Conc 32.4 g/dL (31.8-35.4); Mean Corpuscular Hemoglobin 28.9 pg (27.0-31.2); Mean Corpuscular Volume 89.3 fl (80-94); Platelet Count 270 K/mm3 (142-424); Red Blood Count 3.47 M/mm3 (4.60-6.20); Red Cell Distribution Width 15.3 % (11.5-17.5); White Blood Count 4.4 K/mm3 (4.8-10.8)
[2023-07-25 12:20] LABS: Appearance,Urine CLEAR (Clear); Bilirubin,Urine Negative (Negative); Blood, Urine Negative (Negative); Color,Urine YELLOW (Yellow); Glucose,Urine (UA) Negative (Negative); Ketones,Urine Negative (Negative); Leukocyte Esterase,Urine Negative (Negative); Nitrate,Urine Negative (Negative); Protein,Urine 2+ (Negative); Urobilinogen,Urine 0.2 EU/dl (0.2)
[2023-07-25 12:36] LABS: Bacteria,Urine Trace /lpf; RBC,Urine Occasional #/hpf (0-3); WBC,Urine Occasional #/hpf (0-3)
[2023-07-25 12:46] LABS: Creatinine,Urine Random 68 mg/dL (Not Estab.)
[2023-07-25 13:03] LABS: Albumin Level 3.6 g/dl (3.5-5.0); Anion Gap 10.3 mEq/L (5-15); Blood Urea Nitrogen 42 mg/dl (9-20); Calcium 8.6 mg/dl (8.4-10.2); Carbon Dioxide 29 mmol/L (22.0-30.0); Chloride 103 mmol/L (98-107); Estimated Glomerular Filt Rate 19 ml/min (>60); GFR (African American) 23 ML/MIN (>60); Glucose 99 mg/dl (74-100); Phosphorous 5.1 mg/dl (2.5-4.5); Potassium 3.3 mmoL/L (3.5-5.1); Sodium 139 mmol/L (136-145)
== END 2023-07-25 23:59 ==
LOC: LAB 11:46
PROVIDERS: PCP Family Medicine; Visit Provider Internal Medicine Nephrology
DX: N18.4 Chronic kidney disease, stage 4 (severe) (principal)
CPT/HCPCS: 36415; 80069; 81001; 82570; 84155; 85014; 85018; 85048; 85049

== ENCOUNTER 2023-07-28 16:09 | Outpatient (POV) | payer MEDICARE, SELFPAY | END 2023-07-28 23:59 | disposition home or self-care (01) | LOC: SC 16:10 | PROVIDERS: Visit Provider Internal Medicine Nephrology | DX: Z00.00 Encounter for general adult medical examination without abnormal findings (principal) ==

== ENCOUNTER 2023-08-04 12:43 | Outpatient (CLI) | payer MEDICARE, SELFPAY ==
--- NOTE | 2023-08-04 12:44 | CA_ITS ---
APPROVED REPORT EXAM: Limited 2D Echocardiogram Hydraulic Miner: Bebe Mccarty, RCS, RVS Ht: 141 ft 6 in Wt: 165lbs BSA: 19.41 BP: 136/66 mmHg Indications: follow up pericardial effusion, Pre-op clearance, Ex-smoker, HTN, HLD, RBBB 2D Dimensions LVDs 4.26 cm LVEF (Cannon's) 54.00 % M: 52 - 72 Left Atrium 4.29 cm LA Volume 108.80 mL LA Volume Index 5.60 mL/m2 (M/F) 16-34 M-Mode Dimensions RVDd 2.86 cm (0.9-2.6) LA Diam 5.34 cm (1.9-4.0) LVDd 6.17 cm (3.5-5.7) LVDs 4.31 cm (3.5-5.7) IVSd 1.03 cm (0.6-1.1) PWd 1.11 cm (0.6-1.1) EF (Teich) 50.00% EPSs 0.94 cm FS 25.30% EDV (Teich) 164.60 mL ESV (Teich) 83.50 mL Other Information Study Quality: Fair Conclusion This is a limited TTE to evaluate for pericardial effusion. Limited windows were obtained. There is a small-sized circumferential pericardial effusion present. The largest pockets is noted posteriorly measures approximately 0.4 cm in diastole. No chamber collapse. No evidence of echo indications of tamponade. When directly compared to the prior study from 07/13/2023, the pericardial effusion is overall unchanged. Electronically signed by : Mavis Dorsey MD 08/05/2023 17:26:55
== END 2023-08-04 23:59 ==
LOC: RT 12:44
PROVIDERS: PCP Family Medicine; Visit Provider Nurse Practitioner Family
DX: R94.31 Abnormal electrocardiogram [ECG] [EKG] (principal); I25.10 Atherosclerotic heart disease of native coronary artery without angina pectoris; I31.39 Other pericardial effusion (noninflammatory); I45.10 Unspecified right bundle-branch block; R93.1 Abnormal findings on diagnostic imaging of heart and coronary circulation; Z87.891 Personal history of nicotine dependence
CPT/HCPCS: 93308

== ENCOUNTER 2023-09-05 15:17 | Outpatient (CLI) | payer MEDICARE, SELFPAY ==
[2023-09-05 15:22] LABS: Microscopic, Urine URINE MICROSCOPIC (MICROSCOPIC)
[2023-09-05 15:37] LABS: Basophils % 0.9 % (0.1-2.0); Eosinophils # 0.2 K/mm3 (0.0-0.4); Hematocrit 30.4 % (42.0-52.0); Hemoglobin 9.7 g/dL (14.1-18.0); Lymphocytes % 27.4 % (10-50); Mean Corpuscular Hemoglobin 28.9 pg (27.0-31.2); Mean Corpuscular Volume 90.4 fl (80-94); Monocytes # 0.3 K/mm3 (0.1-1.0); Monocytes % 7.8 % (1.7-9.3); Neutrophils # 2.1 K/mm3 (1.8-7.8); Neutrophils % 58.8 % (37.0-80.0); Platelet Count 226 K/mm3 (142-424); Red Blood Count 3.36 M/mm3 (4.60-6.20); Red Cell Distribution Width 14.9 % (11.5-17.5); White Blood Count 3.6 K/mm3 (4.8-10.8)
[2023-09-05 15:49] LABS: Appearance,Urine CLEAR (Clear); Bilirubin,Urine Negative (Negative); Blood, Urine Negative (Negative); Color,Urine YELLOW (Yellow); Glucose,Urine (UA) Negative (Negative); Ketones,Urine Negative (Negative); Leukocyte Esterase,Urine Negative (Negative); Nitrate,Urine Negative (Negative); PH,Urine 6.5 (5.0-8.5); Protein,Urine 3+ (Negative); Urobilinogen,Urine 0.2 EU/dl (0.2)
[2023-09-05 16:05] LABS: Bacteria,Urine Trace /lpf; Hyaline Casts,Urine Occasional #/lpf (0)
[2023-09-05 16:10] LABS: Anion Gap 10.1 mEq/L (5-15); Blood Urea Nitrogen 48 mg/dl (9-20); Calcium 8.4 mg/dl (8.4-10.2); Carbon Dioxide 27 mmol/L (22.0-30.0); Chloride 105 mmol/L (98-107); Estimated Glomerular Filt Rate 16 ml/min (>60); GFR (African American) 20 ML/MIN (>60); Glucose 115 mg/dl (74-100); Potassium 3.1 mmoL/L (3.5-5.1); Sodium 139 mmol/L (136-145)
== END 2023-09-05 23:59 | disposition home or self-care (01) ==
LOC: LAB 15:18
PROVIDERS: PCP Family Medicine; Visit Provider Surgery
DX: K40.20 Bilateral inguinal hernia, without obstruction or gangrene, not specified as recurrent (principal)
CPT/HCPCS: 36415; 80048; 81001; 85025

== ENCOUNTER 2023-09-12 06:07 | Day surgery (SDC) | payer MEDICARE, SELFPAY ==
[2023-09-08 11:27] VITALS: BMI 24.1
[2023-09-12] VITALS (12 sets, daily range): BP systolic 134–163; BP diastolic 56–83; PULSE 53–64; RESP 14–18; TEMP 36.4–43; O2SAT 94–96
[2023-09-12 06:44] LABS: Chloride 107 mmol/L (98-107); Potassium 3.1 mmoL/L (3.5-5.1); Sodium 141 mmol/L (136-145)
[2023-09-12] MEDS: LACTATED RINGERS 1000ML 1,000 ML 25 ML IV (06:45)
[2023-09-12 06:47] LABS: Anion Gap 9.1 mEq/L (5-15); Blood Urea Nitrogen 43 mg/dl (9-20); Calcium 8.6 mg/dl (8.4-10.2); Carbon Dioxide 28 mmol/L (22.0-30.0); Creatinine Clearance Estimated 21 mL/min (50-200); Estimated Glomerular Filt Rate 16 ml/min (>60); GFR (African American) 19 ML/MIN (>60); Glucose 128 mg/dl (74-100)
--- NOTE | 2023-09-12 06:58 | EXP.GEN.HP ---
HPI HPI HPI: Patient is a 68-year-old male with several comorbidities including history of hypertension, hyperlipidemia, right bundle branch block, coronary artery disease, chronic renal insufficiency, peripheral vascular disease . He was seen in the office on 06/21/2023 as a referral from Dr. Velazquez for inguinal hernia. At that time he was having symptoms in both groin areas with discomfort and protrusion. Patient had bilateral hernias which were symptomatic. He underwent cardiology evaluation and was cleared for surgery. He has had progressive symptoms from his hernias. He wished to pursue repair. [facility] Disclaimer: The information contained in this section may have been updated after the patient was seen, as this information can be updated by other users. Medical History (Updated 09/12/23 @ 06:36 by Jodi Devi RN) Rheumatic fever History of COVID-19 Edema Skin cancer Pericardial effusion Abnormal echocardiogram Abnormal nuclear cardiac imaging test Gout Hypothyroidism HTN (hypertension) HLD (hyperlipidemia) PVD (peripheral vascular disease) Surgical History (Updated 09/12/23 @ 06:36 by Jodi Devi RN) History of surgery History of surgery No significant past surgical history Family History (Updated 09/12/23 @ 06:36 by Jodi Devi RN) Heart attack Social History (Updated 09/12/23 @ 06:36 by Jodi Devi RN) Smoking Status: Former smoker alcohol intake: never substance use type: denies use current occupational status: retired Travel in the last 8 weeks: None household members: spouse housing: house Meds Home Medications and Allergies Home Medications Medication Instructions Recorded Confirmed Type levothyroxine 75 mcg tablet 75 mcg PO DAILY thyroid 09/07/18 09/12/23 History pravastatin 80 mg tablet 80 mg PO HS Cholesterol 09/07/18 09/12/23 History amlodipine 10 mg tablet 10 mg PO DAILY BLOOD PRESSURE 11/21/18 09/12/23 History aspirin 81 mg tablet,delayed 81 mg PO DAILY Blood thinner 11/21/18 09/12/23 History release garlic 1,000 mg capsule 1,000 mg PO QPC SUPPLIMENT 11/21/18 09/12/23 History lisinopril 40 mg tablet 40 mg PO DAILY BLOOD PRESSURE 11/21/18 09/12/23 History omega-3 fatty acids 1,000 mg 1,000 mg PO DAILY SUPPLIMENT 11/21/18 09/12/23 History capsule (Fish Oil Concentrate) vitamin D3 25 mcg (1,000 unit)-vit 1 tab PO DIRECTED SUPPLIMENT 11/21/18 09/12/23 History K2 90 mcg disintegrating tablet hydralazine 50 mg tablet 100 mg PO TID 06/21/23 09/12/23 History allopurinol 100 mg tablet 100 mg PO DAILY #30 tabs 07/22/23 09/12/23 Rx potassium chloride 20 mEq 20 meq PO BID 07/22/23 09/12/23 History tablet,extended release carvedilol 25 mg tablet 50 mg PO BID htn 09/12/23 09/12/23 History New Prescriptions to Start Prescriptions: Allergies Allergy/AdvReac Type Severity Reaction Status Date / Time No Known Allergies Allergy Verified 09/12/23 06:23 Exam Data for Last 24 hours Vital signs and Labs for Last 24 Hours: Temp Pulse Resp BP Pulse Ox O2 Del Method 98.3 F 64 18 151/61 H 96 Room Air 09/12/23 06:28 09/12/23 06:28 09/12/23 06:28 09/12/23 06:28 09/12/23 06:28 09/12/23 06:28 Laboratory Results - last 24 hr 09/12/23 06:12: Sodium 141, Potassium 3.1 L, Chloride 107, Carbon Dioxide 28, Anion Gap 9.1, BUN 43 H, Creatinine 3.80 H, Estimated Creat Clear 21, Estimated GFR 16 L*, Est GFR ( Amer) 19 L*, Glucose 128 H, Calcium 8.6 Constitutional Constitutional: no acute distress *Routine HEENT Exam Head: Present normocephalic Eye: Present EOMI and PERRL ENT: Present mucous membranes moist *Routine Neck Exam Neck: Present supple; Absent lymphadenopathy *Routine Respiratory Exam Respiratory: Present CTA bilaterally *Routine Cardiovascular Exam Cardiovascular: Present Normal S1 and Normal S2 *Routine Abdominal Exam Abdominal: Present soft, normoactive bowel sounds and hernia; Absent tenderness Comments: He has bilateral inguinal hernias. *Routine Rectal Exam Rectal:: deferred *Routine Genitalia Exam Genitalia:: deferred *Routine Extremities Exam Extremities: Absent cyanosis, clubbing or edema *Routine Skin Exam Skin: Present warm; Absent rash *Routine Neurological Exam Neurological: Present alert and oriented X3 Results Results Lab Results Last 24 Hours:: Laboratory Results - last 24 hr 09/12/23 06:12: Sodium 141, Potassium 3.1 L, Chloride 107, Carbon Dioxide 28, Anion Gap 9.1, BUN 43 H, Creatinine 3.80 H, Estimated Creat Clear 21, Estimated GFR 16 L*, Est GFR ( Amer) 19 L*, Glucose 128 H, Calcium 8.6 Assessment and Plan *Assessment and plan (1) Bilateral inguinal hernia: Status: Acute Category: Medical Code(s): K40.20 - Bilateral inguinal hernia, without obstruction or gangrene, not specified as recurrent Plan Given the bilateral hernias with symptomatology plan will be for attempt at laparoscopic with possibly open inguinal hernia repair bilaterally.
[2023-09-12] MEDS: ENOXAPARIN 30MG/0.3ML SYRINGE 30 MG SQ (07:03)
[2023-09-12 07:07] LABS: POC Glucose,Bedside 122 (70-110)
--- NOTE | 2023-09-12 07:51 | P.PNANES_ITS ---
[facility] Disclaimer: The information contained in this section may have been updated after the patient was seen, as this information can be updated by other users. Medical History (Updated 09/12/23 @ 06:36 by Jodi Devi RN) Rheumatic fever History of COVID-19 Edema Skin cancer Pericardial effusion Abnormal echocardiogram Abnormal nuclear cardiac imaging test Gout Hypothyroidism HTN (hypertension) HLD (hyperlipidemia) PVD (peripheral vascular disease) Surgical History (Updated 09/12/23 @ 06:36 by Jodi Devi RN) History of surgery History of surgery No significant past surgical history Family History (Updated 09/12/23 @ 06:36 by Jodi Devi RN) Other Heart attack Social History (Updated 09/12/23 @ 06:36 by Jodi Devi RN) Smoking Status: Former smoker alcohol intake: never substance use type: denies use current occupational status: retired Travel in the last 8 weeks: None household members: spouse housing: house [facility] Anesthesia Checklist Patient Identification Patient Identification: Verbal (Name & ) Structural Data Admitted From: Home Planned Operative Procedure/s: bilat inguinal hernia repair Consent for Planned Operative Procedure(s) Verified: Yes NPO Status Verified Time NPO: 00:00 Additional verifications Anesthesia Reactions: No Hx Blood Transfusions: No Blood Transfusion Reaction: No Airway Assessment Mallampati Score:: Class III C-Spine Mobility Assessed: Yes TMJ Mobility Assessed: Yes Dentition: Edentulous Neurological Assessment Level of Consciousness: Awake, Alert and Appropriate Anesthesia Plan Anesthesia Risk discussed: Yes Anesthesia Plan: Verified ASA Class: III Anesthesia Type: General
[2023-09-12] MEDS: CEFAZOLIN SODIUM 1 GM in 0.9 % SODIUM CHLORIDE 50 ML IV (08:07)
[2023-09-12] MEDS: ROPIVACAINE 0.5% 30ML VIAL 150 MG (08:07)
[2023-09-12] MEDS: LIDOCAINE 1% 30ML PF VIAL 30 ML (08:08)
--- NOTE | 2023-09-12 09:57 | P.OP_ITS ---
Date of procedure: 09/12/23 Pre-op Diagnosis:: Bilateral inguinal hernias Post-op Diagnosis:: Same Procedure performed:: Laparoscopic bilateral inguinal hernia repair (TEPP) with placement of Bard 3D max mesh large sized bilaterally Surgeon:: Jurgen Morales MD CHEMICAL LABORATORY SCIENTIST:: Reed Davalos Anesthesia: GETDanny Estimated blood loss (mL): 15 Operative findings:: He had a moderately large indirect hernia on the left with thickened hernia sac and cord lipoma. On the right side there was a cord lipoma and a very densely adherent thickened hernia sac to the cord structures. Operative note:: Consent was obtained patient was taken to the operating room. He was given preoperative intravenous antibiotics. In the operating room he was placed in a supine position. General anesthesia was induced via endotracheal tube. Resendiz catheter was placed. Abdomen and perineum were prepped and draped in the standard surgical fashion. Subumbilical skin incision was made. Dissection was carried down through subcutaneous tissues. Rectus fascia was incised to the left of the linea alba. Rectus muscles were retracted laterally. Dissecting balloon trocar was inserted into the preperitoneal space. It was inflated and observed laparoscopically. Preperitoneal space was dissected free. Dissecting balloon was then removed and replaced with the structural balloon trocar. CO2 pneumo preperitoneum was established. A couple 5 mm trocars were inserted in the midline inferior to the umbilicus. Attention was first turned to dissection on the left side. Ulysses's ligament and pubic tubercle were clearly identified. Dissection was carried out identifying all landmarks. Inferior epigastric vessels were identified as were the iliac vessels. Cord structures were dissected free from surrounding structures and preperitoneal space was dissected out laterally. There was a significant amount of herniated preperitoneal fat as a cord lipoma and this was dissected free from the cord and reduced to the peritoneal cavity. Further dissection revealed a rather thickened hernia sac. With meticulous dissection this was dissected free from the cord and reduced to its normal anatomic position. At this time attention was turned to the right side. Once again dissection was carried out ultimately identifying landmarks. The Ulysses's ligament and pubic tubercle were identified. Inferior epigastric vessels and iliac vessels were identified. Peritoneum was adherent anteriorly. This was dissected posteriorly dissecting out the preperitoneal space. Dissection of the cord revealed small cord lipoma which was dissected free and reduced. Further dissection revealed a very thickened hernia sac. This was quite densely adherent well into the inguinal canal. Very prolonged dissection was carried out dissecting this free. This was somewhat difficult and ultimately remaining attachments to the obvious cord structures were incised with laparoscopic Metzenbaum scissors. Hernia sac was then returned to normal position. Attention was turned to repair. Large sized Bard 3D max mesh dedicated for the right side was inserted into the preperitoneal space. It was oriented intracorporeally to cover the iliopectineal orifice in its entirety. Repair appeared adequate. Attention was turned to the left side. Large size Bard 3D max mesh dedicated for the left side was inserted into the preperitoneal space. It was oriented intracorporeally to cover the iliopectineal orifice in its entirety. There appeared to be good hemostasis. Bilateral repairs appeared adequate. Mesh was observed in position as the extraperitoneal pneumo preperitoneum was evacuated. Trocars were then removed. Posterior fascia at the umbilicus was then opened sharply and ultimately peritoneum to evacuate any intra-abdominal gas. Anterior fascia was then closed with several interrupted 0 Vicryl sutures. Local anesthetic was infiltrated into the trocars. Local anesthetic had already been infiltrated under laparoscopic visualization for bilateral inguinal nerve blocks. Local anesthetic was infiltrated at the trocar sites. Skin incisions were closed with 4-0 Monocryl in a subcuticular fashion. Dermabond and dressings were applied. Condition: stable Disposition: PACU Complications:: None immediately
--- NOTE | 2023-09-12 10:09 | EXP.ANES.I ---
[facility] Anesthesia Record Part I Anesthesia Record I Intake, IV Amount: 900 Hydration: Adequate Estimated blood loss (mL): 10 Urine output (mL): 800 Blood Products used (#): none Blood Pressure: 145/73 SaO2: 96 Pulse Rate: 54 Airway Patency: Patent Respiratory Rate: 16 Temperature: 98.5 F Patient is:: Drowsy and Stable Stable to PACU at:: 10:00
[2023-09-12 10:18] LABS: POC Glucose,Bedside 168 (70-110)
[2023-09-12] MEDS: MORPHINE 2MG/ML SYRINGE 2 MG IV ×2 (10:35→10:44)
[2023-09-12 10:46] LABS: Microscopic,Cath URINE MICROSCOPIC (MICROSCOPIC)
[2023-09-12 10:56] LABS: Appearance,Urine/Cath CLEAR (Clear); Bilirubin,Cath Negative (Negative); Blood, Urine/Cath Negative (Negative); Color,Urine/Cath YELLOW (Yellow); Glucose,Urine/Cath (UA) Negative (Negative); Ketones,Urine/Cath Negative (Negative); Leukocyte Esterase,Cath Negative (Negative); Nitrate,Cath Negative (Negative); Protein,Urine/Cath 2+ (Negative); Urobilinogen,Cath 0.2 EU/dl (0.2)
[2023-09-12 11:17] LABS: Bacteria,Urine/Cath TRACE /lpf
[2023-09-12 11:18] LABS: Squamous Epithelial Ur./Cath Occasional #/hpf (0-5)
--- NOTE | 2023-09-13 07:17 | P.PNANES_ITS ---
[facility] Anesthesia Record Part II Anesthesia Record Part II Discharge Time: 10:49 Destination: Surgical Day Care (OP Surgery) PACU nurse assessment reviewed?: Yes Patient Condition:: Good Anesthesia Complications:: None Swallowing reflex intact?: Yes Airway Patency: Patent Cyanosis?: No Blood Pressure: 153/74 SaO2: 96 Respiratory Rate: 14 Pulse Rate: 54 Temperature: 98 F Mental Status: Alert & Oriented Pain level:: 5 Nausea and/or vomitting:: None Intake, IV Amount: 0 Hydration: Adequate
[2023-09-13 07:20] VITALS: BP 153/74; PULSE 54; RESP 14; TEMP 36.6; O2SAT 96
== END 2023-09-12 11:18 | disposition home or self-care (01) ==
PROVIDERS: Nurse Anesthetist, Certified Registered; PCP Family Medicine; Visit Provider Surgery
PROC: (CPT 49650; principal; 2023-09-12 07:30)
DX: K40.20 Bilateral inguinal hernia, without obstruction or gangrene, not specified as recurrent (principal)
CPT/HCPCS: 49650; 80048; 81001; 82962; 96372; 96374; J3490; C1781; J2405

== ENCOUNTER 2023-10-27 10:39 | Outpatient (CLI) | payer MEDICARE, SELFPAY ==
[2023-10-27 10:48] LABS: Microscopic, Urine URINE MICROSCOPIC (MICROSCOPIC)
[2023-10-27 11:10] LABS: Hemoglobin 9.9 g/dL (14.1-18.0); Mean Corpuscular HGB Conc 31.9 g/dL (31.8-35.4); Mean Corpuscular Hemoglobin 28.3 pg (27.0-31.2); Mean Corpuscular Volume 88.6 fl (80-94); Platelet Count 250 K/mm3 (142-424); Red Cell Distribution Width 15.8 % (11.5-17.5); White Blood Count 3.6 K/mm3 (4.8-10.8)
[2023-10-27 11:29] LABS: Albumin Level 3.7 g/dl (3.5-5.0); Chloride 103 mmol/L (98-107); Potassium 3.3 mmoL/L (3.5-5.1); Sodium 138 mmol/L (136-145)
[2023-10-27 11:31] LABS: Blood Urea Nitrogen 38 mg/dl (9-20); Estimated Glomerular Filt Rate 16 ml/min (>60); GFR (African American) 19 ML/MIN (>60)
[2023-10-27 11:32] LABS: Anion Gap 12.3 mEq/L (5-15); Carbon Dioxide 26 mmol/L (22.0-30.0); Glucose 103 mg/dl (74-100)
[2023-10-27 12:51] LABS: Appearance,Urine CLEAR (Clear); Bilirubin,Urine Negative (Negative); Blood, Urine Negative (Negative); Color,Urine YELLOW (Yellow); Glucose,Urine (UA) Negative (Negative); Ketones,Urine Negative (Negative); Leukocyte Esterase,Urine Negative (Negative); Nitrate,Urine Negative (Negative); Protein,Urine 3+ (Negative); Specific Gravity, Urine 1.015 (1.005-1.030); Urobilinogen,Urine 0.2 EU/dl (0.2)
[2023-10-27 13:01] LABS: Creatinine,Urine Random 25 mg/dL (Not Estab.)
[2023-10-27 16:20] LABS: Bacteria,Urine Trace /lpf; Squamous Epithelial Cell,Urine Occasional #/hpf (0-5)
== END 2023-10-27 23:59 | disposition home or self-care (01) ==
LOC: LAB 10:40
PROVIDERS: PCP Family Medicine; Visit Provider Internal Medicine Nephrology
DX: N18.4 Chronic kidney disease, stage 4 (severe) (principal)
CPT/HCPCS: 36415; 80069; 81001; 82570; 84156; 85014; 85018; 85048; 85049

== ENCOUNTER 2023-12-14 10:22 | Outpatient (CLI) | payer MEDICARE, SELFPAY ==
--- NOTE | 2023-12-14 10:41 | MR_ITS ---
APPROVED REPORT Gill Net Stringer: CLINICAL INDICATION Increased LV wall thickness, evaluation for infiltrative cardiomyopathy TECHNIQUE Image Acquisition: Cardiac magnetic resonance (CMR) was performed on Siemens Espree MRI 1.5T scanner. Software platform sequences were performed using the Siemens grabHalo MR B19 platform. A set of three-plane, low-resolution, large fnyer-oa-dquc localizers were initially acquired. Then axial, coronal, sagittal TrueFISP, as well as axial HASTE images, were obtained. These were followed by gated TrueFISP breathold cinematic sequences obtained in the short axis with 8 mm slices and 2 mm gaps, 2-chamber (vertical long axis), 3-chamber, 4-chamber (horizontal long axis). A bolus of contrast was injected intravenously with first-pass sequences obtained in the short axis and four-chamber planes. After approximately 10 minutes, a TI clock and watch assembler sequence was performed to determine the optimal TI time. Using the optimized TI time, delayed contrast enhancement segmented inversion???recovery TurboFLASH sequences were obtained in the short axis, 2-chamber, 3-chamber, and 4-chamber projections. 2D-velocity phase mapping was performed. Functional parameters were calculated by offline analysis on an independent workstation ([employer], [employer]). Contrast: ProHance??? (Gadoteridol) FINDINGS MORPHOLOGY AND FUNCTION Left ventricle: The left ventricle is normal in size. The indexed left ventricular end-diastolic volume (LVEDVi) is 84 ml/m2 (reference range 57-105 ml/m2 in males, 56-96 ml/m2 in females). Normal left ventricular systolic function is present. There is increase in left ventricular wall thickness, up to 12 mm. There are no regional wall motion abnormalities noted. LVEF is calculated at 59.8% (reference range 57-77%). Right ventricle: The right ventricle is normal in size. The indexed right ventricular end-diastolic volume (RVEDVi) is 82 ml/m2 (reference range 61-121 ml/m2 in males, 48-112 ml/m2 in females). Normal right ventricular systolic function is present. RVEF is calculated at 62.5% (reference range 52-72% in males, 51-71% in females). Atria: The left atrium is dilated. The maximum indexed left atrial volume is 77 ml/m2 (reference range 26-52 ml/m2 in males, 27-53 ml/m2 in females). The right atrium is normal in size. The maximum indexed right atrial volume is 51 ml/m2 (reference range 18-90 ml/m2). Aorta: The diameter of the aortic annulus is normal, measuring 25 mm (coronal view reference range 21-30 mm in males, 19-27 mm in females). The diameter of the aortic sinus is normal, measuring 35 mm (coronal view reference range 25-42 mm in males, 24-36 mm in females). The diameter of the sinotubular junction is normal, measuring 30 mm (coronal view reference range 18-32 mm in males, 18-28 mm in females). The diameters of the ascending and descending thoracic aorta are normal. Main pulmonary artery: The main pulmonary artery diameter is normal. Pericardium: The pericardial thickness is normal. The pericardial thickness measures 1.3 mm (normal < 4.0 mm). Small-sized posterior pericardial effusion is present. VALVES There is no significant valvular stenosis or regurgitation of the mitral, aortic, tricuspid, or pulmonic valve noted visually. Systolic anterior motion of the mitral valve is not visualized. Ratio of pulmonary to systemic flow, Qp:Qs ratio cannot be calculated due to technical difficulty. TISSUE CHARACTERIZATION Resting Perfusion: Normal myocardial blood flow at rest. No evidence of resting hypoperfusion. Myocardial Fibrosis and/or edema: No obvious evidence of late gadolinium enhancement is noted, consistent with absence of myocardial scarring, infarction, or necrosis. OTHER No other sign
[2023-12-14 10:50] LABS: Blood Urea Nitrogen 50 mg/dl (9-20); Estimated Glomerular Filt Rate 14 ml/min (>60); GFR (African American) 17 ML/MIN (>60)
--- NOTE | 2023-12-14 11:10 | HMH.ITSTN ---
took critical creat of 4.20 , called ordering doctor he said to proceed on with mri with and without contrast
== END 2023-12-14 23:59 | disposition home or self-care (01) ==
LOC: RAD 10:23
PROVIDERS: PCP Family Medicine; Visit Provider Physician Assistant
DX: I11.9 Hypertensive heart disease without heart failure (principal); I25.10 Atherosclerotic heart disease of native coronary artery without angina pectoris; I45.10 Unspecified right bundle-branch block; R94.31 Abnormal electrocardiogram [ECG] [EKG]; E78.2 Mixed hyperlipidemia; I31.39 Other pericardial effusion (noninflammatory); R93.1 Abnormal findings on diagnostic imaging of heart and coronary circulation; Z87.891 Personal history of nicotine dependence
CPT/HCPCS: 75561; 82565; 84520; A9576

== ENCOUNTER 2024-01-12 07:15 | Outpatient (CLI) | payer MEDICARE, SELFPAY ==
--- NOTE | 2024-01-12 07:16 | CT_ITS ---
FINAL REPORT TECHNIQUE: Thin section axial CT images were performed. This study was performed with techniques to keep radiation doses as low as reasonably achievable (ALARA). Individualized dose reduction techniques using automated exposure control or adjustment of mA and/or kV according to the patient''s size were employed. CLINICAL HISTORY: lt Knee pain, tka planning FINDINGS: Large joint effusion is identified. There are joli-ie-eulmrkeh hypertrophic changes of the medial and lateral joint margins. Multiple small calcific or ossific densities are seen in the posterior joint space measuring up to 7 mm consistent with intra-articular loose bodies. IMPRESSION: Intra-articular loose bodies as detailed above. Reviewed, Interpreted and Dictated by Inderjit Fink MD Transcribed by Emelyn Katz Authenticated and [facility]
== END 2024-01-12 23:59 | disposition home or self-care (01) ==
LOC: RAD 07:15
PROVIDERS: PCP Family Medicine; Visit Provider Orthopaedic Surgery
DX: M17.12 Unilateral primary osteoarthritis, left knee (principal)
CPT/HCPCS: 73700

== ENCOUNTER 2024-02-21 13:47 | Outpatient (CLI) | payer MEDICARE, SELFPAY ==
--- NOTE | 2024-02-21 14:02 | ECG_ITS ---
APPROVED REPORT Exam: Resting ECG HR:68 bpm ECG Measurements Heart Rate 68 AXES MI 184 P 52 QRSd 115 QRS -15 QT 443 T 34 QTc 460 Conclusion SINUS RHYTHM WITH OCCASIONAL SUPRAVENTRICULAR PREMATURE COMPLEXES INCOMPLETE RIGHT BUNDLE BRANCH BLOCK [90+ ms QRS DURATION, TERMINAL R IN V1/V2, 40+ ms S IN I/aVL/V4/V5/V6] BORDERLINE ECG UNCONFIRMED REPORT Electronically signed by : Thad Rosa MD 02/21/2024 20:47:29
--- NOTE | 2024-02-21 14:14 | XR_ITS ---
FINAL REPORT TECHNIQUE: Chest PA & Lateral CLINICAL HISTORY: Nonspecific cough COMPARISON: None FINDINGS: 2 views of the chest were performed. The heart is at the upper limits of normal in size. The mediastinum is within normal limits. There is no acute cardiopulmonary process. There are no pleural effusions. There is no pneumothorax. The bony thorax appears intact. IMPRESSION: No acute cardiopulmonary process. Reviewed, Interpreted and Dictated by Inderjit Fink MD Transcribed by Elvira Ortega Authenticated and [facility]
[2024-02-22 09:48] LABS: Basophils % 0.7 % (0.1-2.0); Eosinophils # 0.2 K/mm3 (0.0-0.4); Eosinophils % 3.1 % (0.1-12.0); Hematocrit 30.8 % (42.0-52.0); Hemoglobin 9.6 g/dL (14.1-18.0); Lymphocytes # 0.9 K/mm3 (0.7-4.5); Lymphocytes % 18.3 % (10-50); Mean Corpuscular HGB Conc 31.1 g/dL (31.8-35.4); Mean Corpuscular Hemoglobin 29.7 pg (27.0-31.2); Mean Corpuscular Volume 95.6 fl (80-94); Mean Platelet Volume 11.8 fl (7.4-10.4); Monocytes # 0.4 K/mm3 (0.1-1.0); Monocytes % 8.6 % (1.7-9.3); Neutrophils # 3.4 K/mm3 (1.8-7.8); Neutrophils % 69.3 % (37.0-80.0); Platelet Count 209 K/mm3 (142-424); Red Blood Count 3.22 M/mm3 (4.60-6.20); Red Cell Distribution Width 14.6 % (11.5-17.5); White Blood Count 4.9 K/mm3 (4.8-10.8)
== END 2024-02-21 23:59 | disposition home or self-care (01) ==
LOC: PREOP 13:48
PROVIDERS: PCP Family Medicine; Visit Provider Orthopaedic Surgery
DX: Z01.810 Encounter for preprocedural cardiovascular examination (principal); I25.10 Atherosclerotic heart disease of native coronary artery without angina pectoris; I49.1 Atrial premature depolarization; I45.19 Other right bundle-branch block; R05.9 Cough, unspecified; R94.31 Abnormal electrocardiogram [ECG] [EKG]
CPT/HCPCS: 71046; 85025; 93005

== ENCOUNTER 2024-02-22 13:40 | Outpatient (CLI) | payer MEDICARE, SELFPAY ==
[2024-02-22 14:16] LABS: Albumin Level 3.7 g/dl (3.5-5.0); Chloride 105 mmol/L (98-107); Potassium 3.6 mmoL/L (3.5-5.1); Sodium 139 mmol/L (136-145)
[2024-02-22 14:19] LABS: Alanine Aminotransferase 13 U/L (12-78); Albumin/Globulin Ratio 1.4 (1.1-1.8); Alkaline Phosphatase 77 U/L (38-126); Anion Gap 14.6 mEq/L (5-15); Aspartate Amino Transferase 25 U/L (17-59); Bilirubin,Total 0.5 mg/dl (0.2-1.3); Blood Urea Nitrogen 47 mg/dl (9-20); Carbon Dioxide 23 mmol/L (22.0-30.0); Estimated Glomerular Filt Rate 14 ml/min (>60); GFR (African American) 17 ML/MIN (>60); Globulin 2.6 g/dL (1.3-3.2); Total Protein,Serum 6.3 g/dl (6.3-8.2)
[2024-02-22 14:20] LABS: Calcium 8.8 mg/dl (8.4-10.2); Glucose 99 mg/dl (74-100)
== END 2024-02-22 23:59 | disposition home or self-care (01) ==
LOC: LAB 13:40
PROVIDERS: PCP Family Medicine; Visit Provider Orthopaedic Surgery
DX: M17.12 Unilateral primary osteoarthritis, left knee (principal)
CPT/HCPCS: 36415; 80053

== ENCOUNTER 2024-03-22 12:39 | Outpatient (CLI) | payer MEDICARE, SELFPAY ==
--- NOTE | 2024-03-22 12:42 | CA_ITS ---
FINAL REPORT TECHNIQUE: Sonographic images of the veins of the right upper extremity were obtained from axilla to antecubital fossa. Additionally, images of the internal jugular vein and subclavian vein were also obtained. CLINICAL HISTORY: RUE PAIN, EDEMA COMPARISON: None FINDINGS: The veins of the right upper extremity are compressible from axilla to antecubital fossa. Blood flow is demonstrated by both color and spectral Doppler as well. The internal jugular vein and subclavian vein are also patent. IMPRESSION: No evidence of venous thrombosis of the right upper extremity. Reviewed, Interpreted and Dictated by Jurgen Espinoza III, MD Transcribed by Dina Jay Authenticated and [facility]
== END 2024-03-22 23:59 | disposition home or self-care (01) ==
LOC: RT 12:40
PROVIDERS: PCP Family Medicine; Visit Provider Family Medicine
DX: M79.601 Pain in right arm (principal); M79.89 Other specified soft tissue disorders
CPT/HCPCS: 93971

== ENCOUNTER 2024-04-13 08:59 | Outpatient (CLI) | payer MEDICARE, SELFPAY ==
--- NOTE | 2024-04-13 09:03 | CT_ITS ---
FINAL REPORT TECHNIQUE: Axial images through the chest were performed by computed tomography. This study was performed with techniques to keep radiation doses as low as reasonably achievable, (ALARA). Individualized dose reduction techniques using automated exposure control or adjustment of mA and/or kV according to the patient's size were employed. CLINICAL HISTORY: r/o mass and thoracic out syndrome COMPARISON: None FINDINGS: CT CHEST WITHOUT: Mild vascular calcifications are noted in the thoracic aorta. There are also dense coronary artery calcifications present. No significant mediastinal or hilar adenopathy is noted. There is mild scarring at the lung bases and changes of centrilobular emphysema. There is a small pericardial effusion, which measures 1.4 cm in thickness. No confluent infiltrates or effusions are identified. There appears to be an articulation between the anterior right first rib and the undersurface of the medial right clavicle, to form a pseudoarthrosis. This is best seen on images #47 through 52 of series 3. No acute bony abnormality is identified. IMPRESSION: Articulation between the anterior right first rib and the undersurface of the medial right clavicle, to form a pseudoarthrosis as described above. Small pericardial effusion and mild changes of centrilobular emphysema. Reviewed, Interpreted and Dictated by Inderjit Fink MD Transcribed by Dina Jay Authenticated and [facility]
[2024-04-13 09:46] LABS: Blood Urea Nitrogen 43 mg/dl (9-20); Estimated Glomerular Filt Rate 12 ml/min (>60); GFR (African American) 15 ML/MIN (>60)
== END 2024-04-13 23:59 | disposition home or self-care (01) ==
LOC: RAD 09:00
PROVIDERS: PCP Family Medicine; Visit Provider Physician Assistant
DX: R94.30 Abnormal result of cardiovascular function study, unspecified (principal); R94.31 Abnormal electrocardiogram [ECG] [EKG]; I73.9 Peripheral vascular disease, unspecified
CPT/HCPCS: 36415; 71250; 82565; 84520; 93931

== ENCOUNTER 2024-04-16 13:27 | Outpatient (CLI) | payer MEDICARE, SELFPAY ==
--- NOTE | 2024-04-16 13:49 | CA_ITS ---
FINAL REPORT CLINICAL HISTORY: HTN, HLD, recent diagnosis renal disease stage 5, CAD, edema RUE x 1-2 months. COMPARISON: None FINDINGS: Doppler waveform evaluations of the right upper extremity was performed. Subclavian: 243 Axilla: 157 Brachial proximal: 217 Brachial mid: 176 Brachial distal: 118 Radial proximal: 167 Radial mid: 128 Radial distal: 176 Ulnar proximal: 135 Ulnar mid: 91 Ulnar distal: 144 Waveforms are multiphasic. Velocities are elevated proximally. Atherosclerotic disease is visualized with no evidence of occlusion. IMPRESSION: Atherosclerotic disease with elevated velocities. Consider CTA if clinical concern persists. Reviewed, Interpreted and Dictated by Shirin Winter MD Transcribed by Angelina Roa Authenticated and . [facility]
== END 2024-04-16 23:59 | disposition home or self-care (01) ==
LOC: RT 13:27
PROVIDERS: PCP Family Medicine; Visit Provider Physician Assistant
DX: M79.601 Pain in right arm (principal); R60.9 Edema, unspecified
CPT/HCPCS: 93931

== ENCOUNTER 2024-05-08 12:56 | Outpatient (CLI) | payer MEDICARE, SELFPAY ==
[2024-05-08 13:32] LABS: Basophils % 0.3 % (0.1-2.0); Eosinophils # 0.1 K/mm3 (0.0-0.4); Eosinophils % 2.3 % (0.1-12.0); Hematocrit 23.7 % (42.0-52.0); Hemoglobin 7.2 g/dL (14.1-18.0); Lymphocytes # 0.8 K/mm3 (0.7-4.5); Lymphocytes % 17.6 % (10-50); Mean Corpuscular HGB Conc 30.4 g/dL (31.8-35.4); Mean Corpuscular Hemoglobin 26.3 pg (27.0-31.2); Mean Corpuscular Volume 86.4 fl (80-94); Mean Platelet Volume 7.2 fl (7.4-10.4); Monocytes # 0.2 K/mm3 (0.1-1.0); Monocytes % 4.8 % (1.7-9.3); Neutrophils # 3.5 K/mm3 (1.8-7.8); Neutrophils % 74.9 % (37.0-80.0); Platelet Count 403 K/mm3 (142-424); Red Blood Count 2.74 M/mm3 (4.60-6.20); Red Cell Distribution Width 14.6 % (11.5-17.5); White Blood Count 4.7 K/mm3 (4.8-10.8)
[2024-05-08 14:25] LABS: Alanine Aminotransferase 17 U/L (12-78); Alkaline Phosphatase 62 U/L (38-126); Aspartate Amino Transferase 25 U/L (17-59); Bilirubin,Total 0.3 mg/dl (0.2-1.3); Blood Urea Nitrogen 47 mg/dl (9-20); Calcium 8.3 mg/dl (8.4-10.2); Chloride 109 mmol/L (98-107); Estimated Glomerular Filt Rate 14 ml/min (>60); GFR (African American) 17 ML/MIN (>60); Glucose 109 mg/dl (74-100); Phosphorous 4.5 mg/dl (2.5-4.5); Potassium 3.9 mmoL/L (3.5-5.1); Sodium 140 mmol/L (136-145); Total Protein,Serum 5.8 g/dl (6.3-8.2); Uric Acid 5.7 mg/dl (3.5-8.5)
[2024-05-08 14:26] LABS: Albumin Level 3.1 g/dl (3.5-5.0); Albumin/Globulin Ratio 1.1 (1.1-1.8); Anion Gap 13.9 mEq/L (5-15); Carbon Dioxide 21 mmol/L (22.0-30.0); Globulin 2.7 g/dL (1.3-3.2)
[2024-05-08 14:28] LABS: 25-OH Vitamin D, Total 24.8 ng/mL (30-100)
[2024-05-08 14:36] LABS: Intact Parathyroid Hormone 328.4 pg/mL (7.5-53.5)
[2024-05-08 20:26] LABS: Hemoglobin A1C 4.9 % (4.0-6.0)
== END 2024-05-08 23:59 | disposition home or self-care (01) ==
LOC: LAB 12:57
PROVIDERS: PCP Family Medicine; Visit Provider Family Medicine
DX: N18.4 Chronic kidney disease, stage 4 (severe) (principal); M1A.9XX0 Chronic gout, unspecified, without tophus (tophi); E11.9 Type 2 diabetes mellitus without complications; E55.9 Vitamin D deficiency, unspecified; E78.2 Mixed hyperlipidemia
CPT/HCPCS: 36415; 80053; 82306; 83036; 83970; 84100; 84550; 85025

== ENCOUNTER 2024-05-10 10:00 | Outpatient (RCR) | payer MEDICARE, SELFPAY ==
--- NOTE | 2024-04-23 10:05 | HMH.PTOPEV ---
PT Outpatient Evaluation Rehab PT Outpatient Evaluation Start: 04/23/24 09:35 Freq: Status: Active Protocol: Document 04/23/24 09:36 LOREN (Rec: 04/23/24 10:04 LOREN ) E-signed By Cecilio Granger, PT Outpatient Therapy Subjective History Subjective History Pt is a 69 yom who is referred [facility] OP PT with complaints of R upper arm pain. The patient was referred with a diagnosis of Thoracic Outlet Syndrome. The pt describes an aching pain into his R arm that is diffuse but does not refer distal to the elbow. The patient reports that this began 2-3 months ago following a fall outside in his garden. He reports that he was initially dealing with swelling down into his hands but that has subsided. He reports that the pain has improved in the past month but his motion of his R shoulder seems to be his biggest difficulty. Doppler Ultrasound of his R shoulder is unremarkable. Chest CT shows narrowing between the first rib on the R and the clavicle. The patient reports that he has been using OTC meds and heat to help with the pain. New diagnosis of cancer in past 12 No months? Chief Complaint Pain,Stiff Symptom Type Ache Symptoms Relieved By Rest/Positioning Symptoms Aggravated By Physical Activity Prior Functional Limitations Reaching,Lifting,Housework, Dressing Symptom Description Intermittent Level of pain today (0-10) 3 Pain scale - at its best (0-10) 0 Pain scale - at its worst (0-10) 10 Shoulder/Elbow Eval Shoulder Objective Measurements Palpation Tenderness tenderness shoulder exam standard right tenderness over the bicipital tendon right shoulder exam standard tenderness over the SA bursa shoulder right exam standard Shoulder Palpation Overall Comment TTP 2/4 to Bicipital Tendon and pectoralis major tendon Posture Shoulder Posture Sitting Position (L) Rounded,(R) Rounded,(L) Forward,(R) Forward,(R) Elevated Flexibilty Deficits Pectoralis Minor Muscle Length (R) Severe Tightness,(L) Severe Tightness Upper Trapezius Muscle Length (R) Moderate Tightness,(L) Moderate Tightness Shoulder ROM Right Shoulder ROM Limitations Pain Shoulder Abduction Active Range of 75 Motion (degrees) Shoulder Abduction Passive Range of 80 Motion (degrees) Shoulder Flexion Active Range of Motion 100 (degrees) Query Text: Shoulder Flexion Passive Range of Motion 110 (degrees) Shoulder External Rotation Active Range 30 of Motion (degrees) Shoulder External Rotation Passive Range 35 of Motion (degrees) Shoulder Internal Rotation Active Range 60 of Motion (degrees) Shoulder Internal Rotation Passive Range 75 of Motion (degrees) pain with active ROM shoulder exam right standard pain with passive ROM shoulder exam right standard decreased ROM shoulder exam standard right full ROM shoulder exam standard left Shoulder MMT Shoulder Abduction Strength Grade 2 Poor Shoulder Flexion Strength Grade 2 Poor Shoulder Horizontal Abduction Strength 2 Poor Grade Shoulder External Rotation Strength 2 Poor Grade Shoulder Special Tests impingement sign present shoulder exam right standard Shoulder Drop Arm Test Negative Right Shoulder Pedersen-Brooklynn Impingement Positive Right Test Shoulder Neer Impingement Test Positive Right Elbow Objective Measurements QuickDASH Activities Please rate your ability to do the following activities in the last week by selecting the number below the appropriate response. 1. Open a tight or new jar. Mild difficulty 2. Do heavy salesperson household appliances (e.g., wash Severe difficulty owusu, floors). 3. Carry a shopping bag or briefcase. No difficulty 4. Wash your back. No difficulty 5. Use a knife to cut food. No difficulty 6. Recreational activities in which you Moderate difficulty take some force or impact through your arm, shoulder, or hand (e.g., golf, hammering, tennis, etc.). 7. During the past week, to what extent Moderately has your arm, shoulder or hand problem interfered with your normal social activities with family, friends, neighbors or groups? 8. During the past week, were you Moderately limited limited in your work or other regular daily activites as a result of your arm, shoulder or hand problem? 9. Arm, shoulder or hand pain. Moderate 10. Tingling (pins and needles) in your None arm, shoulder or hand. 11. During the past week, how much Moderate difficulty difficulty have you had sleeping because of the pain in your arm, shoulder or hand? Quick DASH 25 Miscellaneous Dx PT Eval Objective Objective Adsons: reproduces pain into R upper arm ULTT: symmetrical Outpatient Therapy Assessment Impairments Problems/Impairmments Palpation Tenderness,Impaired Range of Motion,Impaired Strength,Impaired Household Care,Subjective C/O Pain Prognosis Rehab Potential Fair Comment The patient presents with impaired shoulder ROM grossly on the R side, positive pedersen-brooklynn, neer impingement. The patient has been clinically diagnosed with Thoracic Outlet Syndrome. However, these signs and symptoms also suggest anb accompanying diagnosis of subacromial impingement. The patient would benefit from skilled PT at this time. Clinical Impression Consistent with Diagnosis Yes Short Term Goals Number of Weeks 4 Decreased Palpation Tenderness Yes: 1/4 to R shoulder Increase Range of Motion Yes: shoulder ABD to 110, Flexion to 130 Increase Strength Yes: 3/5 to R shoulder Restore Ability to Lift Objects Overhead Yes: 4/10 pain Improve Quick Dash Score Yes: to 15/10 Decrease Subjective C/O Pain Yes: 6/10 at worst Patient to be Ind w/ HEP Yes Lineman A Class Goals Number of Weeks 8 Decreased Palpation Tenderness Yes: 0/4 to R shoulder Increase Range of Motion Yes: R abduction to 150 and flexion to 150 Increase Strength Yes: 4/5 to R shoulder Restore Ability to Lift Objects Overhead Yes: 2/10 pain Improve Quick Dash Score Yes: to 5 Decrease Subjective C/O Pain Yes: 2/10 at worst Patient to be Ind w/ Advanced HEP Yes Outpatient Therapy Plan of Care Treatment Plan May Include Therapeutic Exercise Including Home Yes Exercise Program Manual Therapy Techniques Yes Neuromuscular Re-education Yes Therapeutic Activities to Return to Yes Previous Functional/Work Level Gait Training Yes ADL/Self Care Education Yes Mechanical Traction Yes Dry Needling Yes Thermal Modalities Yes Electrical Stimulation Yes Ultrasound/Phonophoresis Yes Massage Yes Manual Lymphatic Drainage Yes Frequency Times per week 2-3 Duration Number of Weeks 8 Addendums This patient is a candidate for social No or vocational rehab? Patient/Guardian verbally acknowledges Yes understanding of treatment program and consents to further treatment? Patient/Guardian verbally acknowledges Yes understanding of diagnosis, prognosis and goals for treatment? Eval Complexity PT Charges 49418 - High Complexity PHYSICIAN CERTIFICATION: I certify the specified therapy services for Lazaro Minor are required, authorized, and reviewed every 30 days.
== END 2024-05-10 23:59 | disposition home or self-care (01) ==
LOC: PT 10:00
PROVIDERS: Visit Provider Physician Assistant
DX: G54.0 Brachial plexus disorders (principal)
CPT/HCPCS: 97010; 97110; 97140; 97163; 97530

== ENCOUNTER 2024-05-18 10:20 | Outpatient (CLI) | payer MEDICARE, SELFPAY ==
[2024-05-18 10:32] LABS: Microscopic, Urine URINE MICROSCOPIC (MICROSCOPIC)
[2024-05-18 10:50] LABS: Mean Corpuscular HGB Conc 30.8 g/dL (31.8-35.4); Mean Corpuscular Hemoglobin 25.8 pg (27.0-31.2); Mean Corpuscular Volume 83.9 fl (80-94); Platelet Count 301 K/mm3 (142-424); Red Blood Count 2.48 M/mm3 (4.60-6.20); Red Cell Distribution Width 14.2 % (11.5-17.5); Reticulocyte % (Auto) 1.4 % (0.9-3.2); White Blood Count 3.5 K/mm3 (4.8-10.8)
[2024-05-18 10:55] LABS: Appearance,Urine CLEAR (Clear); Bilirubin,Urine Negative (Negative); Blood, Urine Negative (Negative); Color,Urine YELLOW (Yellow); Glucose,Urine (UA) Negative (Negative); Ketones,Urine Negative (Negative); Leukocyte Esterase,Urine Negative (Negative); Nitrate,Urine Negative (Negative); PH,Urine 6.5 (5.0-8.5); Protein,Urine 2+ (Negative); Urobilinogen,Urine 0.2 EU/dl (0.2)
[2024-05-18 11:30] LABS: Hemoglobin 6.4 g/dL (14.1-18.0)
[2024-05-18 11:31] LABS: Hematocrit 20.8 % (42.0-52.0)
[2024-05-18 11:32] LABS: 25-OH Vitamin D, Total 24.6 ng/mL (30-100)
[2024-05-18 11:45] LABS: Albumin Level 3.2 g/dl (3.5-5.0); Chloride 107 mmol/L (98-107); Sodium 136 mmol/L (136-145)
[2024-05-18 11:46] LABS: Potassium 4.5 mmoL/L (3.5-5.1)
[2024-05-18 11:48] LABS: Alanine Aminotransferase 17 U/L (12-78); Albumin/Globulin Ratio 1.2 (1.1-1.8); Alkaline Phosphatase 68 U/L (38-126); Anion Gap 12.5 mEq/L (5-15); Aspartate Amino Transferase 28 U/L (17-59); Bilirubin,Total 0.4 mg/dl (0.2-1.3); Blood Urea Nitrogen 51 mg/dl (9-20); Calcium 8.4 mg/dl (8.4-10.2); Carbon Dioxide 21 mmol/L (22.0-30.0); Estimated Glomerular Filt Rate 13 ml/min (>60); GFR (African American) 16 ML/MIN (>60); Globulin 2.7 g/dL (1.3-3.2); Glucose 93 mg/dl (74-100); Iron 33 ug/dL (49-181); Phosphorous 6.1 mg/dl (2.5-4.5); Total Protein,Serum 5.9 g/dl (6.3-8.2)
[2024-05-18 12:00] LABS: Uric Acid 6.4 mg/dl (3.5-8.5)
[2024-05-18 12:06] LABS: Total Iron Binding Capacity 270 ug/dL (261-462)
[2024-05-18 13:15] LABS: Folate > 20.00 ng/mL
[2024-05-19 08:10] LABS: Transferrin 197 mg/dL (177-329)
== END 2024-05-18 23:59 | disposition home or self-care (01) ==
LOC: LAB 10:23
PROVIDERS: PCP Family Medicine; Visit Provider Internal Medicine Nephrology
DX: I12.9 Hypertensive chronic kidney disease with stage 1 through stage 4 chronic kidney disease, or unspecified chronic kidney disease (principal); N18.4 Chronic kidney disease, stage 4 (severe); Z87.891 Personal history of nicotine dependence
CPT/HCPCS: 36415; 80053; 81001; 82306; 82746; 83540; 83550; 83970; 84100; 84156; 84425; 84466; 84550; 85027; 85044

== ENCOUNTER 2024-05-18 11:52 | Emergency (ER) | payer MEDICARE, SELFPAY ==
[2024-05-18] VITALS (21 sets, daily range): BP systolic 153–199; BP diastolic 71–95; PULSE 65–96; RESP 16–20; TEMP 36.6–37; O2SAT 95–98; BMI 22.4
[2024-05-18 12:29] LABS: Albumin Level 3.6 g/dl (3.5-5.0); Chloride 106 mmol/L (98-107); Sodium 137 mmol/L (136-145)
[2024-05-18 12:32] LABS: Alanine Aminotransferase 20 U/L (12-78); Albumin/Globulin Ratio 1.1 (1.1-1.8); Alkaline Phosphatase 68 U/L (38-126); Aspartate Amino Transferase 31 U/L (17-59); Bilirubin,Total 0.4 mg/dl (0.2-1.3); Blood Urea Nitrogen 49 mg/dl (9-20); Carbon Dioxide 21 mmol/L (22.0-30.0); Creatinine Clearance Estimated 15 mL/min (50-200); Estimated Glomerular Filt Rate 12 ml/min (>60); GFR (African American) 14 ML/MIN (>60); Globulin 3.3 g/dL (1.3-3.2); Total Protein,Serum 6.9 g/dl (6.3-8.2)
[2024-05-18 12:33] LABS: Calcium 8.8 mg/dl (8.4-10.2); Glucose 129 mg/dl (74-100)
--- NOTE | 2024-05-18 12:53 | PC.NURSE ---
CRITICAL CREAT 4.90, PT NAME AND R/V. DR MCGINNIS NOTIFIED. NO NEW ORDERS
--- NOTE | 2024-05-18 12:57 | ED_ITS ---
Discharge Plan Disposition Patient Disposition: Xfer Short-Term Hosp Chief Complaint: Recheck/Abnormal Lab/Rx Prescriptions Prescriptions: No Action lisinopril 40 mg tablet 40 mg PO DAILY amlodipine 10 mg tablet 10 mg PO DAILY omega-3 fatty acids [Fish Oil Concentrate] 1,000 mg capsule 1,000 mg PO DAILY garlic 1,000 mg capsule 1,000 mg PO QPC Xarelto 15 mg tablet 15 mg PO DAILY Qty: 30 5RF Rx Instructions: must administer with evening meal hydralazine 50 mg tablet 100 mg PO TID Patient Comments: TAKE 1 TABLET BY MOUTH TWICE DAILY WITH FOOD allopurinol 100 mg tablet 100 mg PO DAILY Qty: 30 2RF potassium chloride 20 mEq tablet extended release 20 meq PO BID levothyroxine 75 tablet 75 mcg PO DAILY pravastatin 80 MG tablet 80 mg PO HS carvedilol 25 mg tablet 25 mg PO DAILY Referrals Follow up/Referrals: Matthew Velazquez MD [Primary Care Provider] - See instructions Clinical Impressions Clinical Impression: ABLA (acute blood loss anemia), Acute kidney injury superimposed on CKD Stand Alone Forms Stand Alone Forms: Transfer Record - ED Print Language Print Language: Chinese Discharge ED Provider: Antoine Arthur General Adult HPI <Antoine Arthur MD - Last Filed: 05/18/24 16:26> General Chief complaint: Recheck/Abnormal Lab/Rx Stated complaint: lab results Time Seen by Provider: 05/18/24 12:08 Mode of Arrival: Ambulatory Source of Information: Patient Limitations: No Limitations Description of Symptoms (Recalled from ER Triage Doc. by RN): PT SENT BY PCP FOR BLOOD TRANSFUSION. ROUTINE LABS WERE ORDERED BY GUEST SERVICES OFFICER, STATES HE WILL NEED DIALYSIS. PT WITHOUT PAIN. DENIES BLOODY, TARRY STOOLS. NO BLOOD IN URINE. NO KNOWN SOURCE OF BLOOD LOSS, HAS HAD BLOOD TRANSFUSION IN PAST History of Present Illness HPI narrative: Please note that above description of symptoms, in this electronic medical record under categorization of recalled from ER triage doctor by RN are reflective of an initial nursing assessment, however, is not reflective of my full history and physical exam that was personally taken and clarified. Consequentially, this preceding description of symptoms, which may include the patient's categorized chief complaint in the EMR, do not reflect my personal clinical impression, and the ultimate description of history of present illness and patient stated complaints should be deferred to this section of the note. Unless stated otherwise or congruent with this section of the note, additional signs, symptoms, or incongruence should be interpreted as inaccurate with my clinical impression. Related Data Home Medications ?Medication ?Instructions ?Recorded ?Confirmed levothyroxine 75 mcg tablet 75 mcg PO DAILY thyroid 09/07/18 04/17/24 pravastatin 80 mg tablet 80 mg PO HS Cholesterol 09/07/18 04/17/24 amlodipine 10 mg tablet 10 mg PO DAILY BLOOD PRESSURE 11/21/18 04/17/24 garlic 1,000 mg capsule 1,000 mg PO QPC SUPPLIMENT 11/21/18 04/17/24 lisinopril 40 mg tablet 40 mg PO DAILY BLOOD PRESSURE 11/21/18 04/17/24 omega-3 fatty acids 1,000 mg 1,000 mg PO DAILY SUPPLIMENT 11/21/18 04/17/24 capsule (Fish Oil Concentrate) hydralazine 50 mg tablet 100 mg PO TID 06/21/23 04/17/24 potassium chloride 20 mEq 20 meq PO BID 07/22/23 04/17/24 tablet,extended release carvedilol 25 mg tablet 25 mg PO DAILY High Blood Pressure 02/21/24 04/17/24 Previous Rx's ?Medication ?Instructions ?Recorded allopurinol 100 mg tablet 100 mg PO DAILY #30 tabs 07/22/23 rivaroxaban 15 mg tablet (Xarelto) 15 mg PO DAILY #30 tabs 10/27/23 Allergies Allergy/AdvReac Type Severity Reaction Status Date / Time No Known Allergies Allergy Verified 04/17/24 11:20 [facility] <Antoine Arthur MD - Last Filed: 05/18/24 16:26> [facility] Disclaimer: The information contained in this section may have been updated after the patient was seen, as this information can be updated by other users. Medical History Pain in right arm Edema of right upper extremity Kidney disease Rheumatic fever as child History of COVID-19 Edema both lower extremities Skin cancer Pericardial effusion Abnormal echocardiogram Abnormal nuclear cardiac imaging test Gout Hypothyroidism HTN (hypertension) HLD (hyperlipidemia) PVD (peripheral vascular disease) Surgical History History of hernia surgery History of surgery heart cath History of surgery heart stent x3 Family History Sister Family history of cancer Mother Heart attack ALS (amyotrophic lateral sclerosis) Social History Smoking Status: Former smoker alcohol intake: never substance use type: denies use current occupational status: retired Travel in the last 8 weeks: None household members: spouse housing: house Have you lived/traveled outside US in past 30 days?: No Contact w/someone who lives/traveled outside US past 30 days?: No Exposure to someone with infectious disease in past 14 days?: No Do you have a fever (greater than 100.4 F or 38 C)?: No Have you tested positive for COVID-19: No Exposed to someone with COVID-19 in past 14 days?: No Do you have a sore throat?: No Do you have a cough?: No Do you have any weakness?: No Do you have any diarrhea?: No Are you experiencing any unusual bleeding?: No Do you have any muscle aches/pain?: No Do you have any abdominal pain?: No Are you experiencing loss of taste or smell?: No Other Medical History Have you received the Flu Vaccine for this season: Yes Have you received the Pneumonia Vaccine: Yes <Antoine Arthur MD - Last Filed: 05/18/24 16:26> ROS Obtained: Yes All systems reviewed & no additional complaints except as documented Physical Exam <Antoine Arthur MD - Last Filed: 05/18/24 16:26> General General appearance: alert Head Head exam: atraumatic and normocephalic Eye Eye exam: Present normal appearance, PERRL and EOMI Neck Neck exam: Present normal inspection, full ROM and trachea midline Respiratory Respiratory exam: Absent respiratory distress, wheezes, stridor, accessory muscle use or prolonged expiratory phase Cardiovascular Cardiovascular exam: Present other (Pulses equal symmetric in upper and lower extremities) Abdominal Exam Abdominal exam: Present soft; Absent distention, tenderness or pulsatile mass Extremities Exam Extremities exam: Absent edema Neurological Exam Neurological exam: Present alert, oriented X3 and CN II-XII intact; Absent motor sensory deficit Skin Skin exam: Present warm and dry; Absent diaphoresis or erythema Medical Decision Making <Antoine Arthur MD - Last Filed: 05/18/24 16:26> Medical Records Medical records reviewed: Yes I reviewed the patient's medical records. Screening: Per USPSTF and CDC recommendations, given the prevalence of disease in our region, it is our hospital?s policy to screen for HIV and viral Hepatitis for all patients aged 18 and over and those with ongoing risk factors. Kevin Inquiry Pt receiving controlled substance: No Kevin was queried for this patient: No Vital Signs: 05/18/24 11:53 05/18/24 12:30 05/18/24 13:01 Temperature 97.9 F Temperature Source Oral Pulse Rate 65 68 Pulse Rate [Radial] 73 Respiratory Rate 18 18 TAR Vitals Timing Blood Pressure 156/73 H 153/71 H Blood Pressure [Right Arm] 170/79 H Blood Pressure Mean 125 124 Blood Pressure Mean [Right Arm] 109 Blood Pressure Source Blood Pressure Source [Right Arm] Automatic Cuff Blood Pressure Position Blood Pressure Position [Right Arm] Sitting 02 Sat by Pulse Oximetry 97 97 97 Oxygen Delivery Method Room Air 05/18/24 14:14 05/18/24 14:31 05/18/24 15:00 Temperature Temperature Source Pulse Rate 80 84 82 Pulse Rate [Radial] Respiratory Rate 18 16 18 TAR Vitals Timing Blood Pressure 167/74 H 175/73 H 184/82 H Blood Pressure [Right Arm] Blood Pressure Mean 105 107 116 Blood Pressure Mean [Right Arm] Blood Pressure Source Blood Pressure Source [Right Arm] Blood Pressure Position Blood Pressure Position [Right Arm] 02 Sat by Pulse Oximetry 97 98 97 Oxygen Delivery Method 05/18/24 15:30 05/18/24 15:43 05/18/24 15:44 Temperature 98.4 F Temperature Source Oral Pulse Rate 77 84 87 Pulse Rate [Radial] Respiratory Rate 16 16 18 TAR Vitals Timing Pre-Blood Vitals Blood Pressure 183/85 H 189/82 H 189/82 H Blood Pressure [Right Arm] Blood Pressure Mean 117 117 117 Blood Pressure Mean [Right Arm] Blood Pressure Source Automatic Cuff Blood Pressure Source [Right Arm] Blood Pressure Position Sitting Blood Pressure Position [Right Arm] 02 Sat by Pulse Oximetry 97 95 98 Oxygen Delivery Method 05/18/24 16:00 05/18/24 16:00 05/18/24 16:04 Temperature 98.4 F Temperature Source Oral Pulse Rate 90 89 89 Pulse Rate [Radial] Respiratory Rate 18 16 19 TAR Vitals Timing Start Vitals Blood Pressure 190/90 H 193/91 H 190/90 H Blood Pressure [Right Arm] Blood Pressure Mean 123 125 123 Blood Pressure Mean [Right Arm] Blood Pressure Source Automatic Cuff Blood Pressure Source [Right Arm] Blood Pressure Position Sitting Blood Pressure Position [Right Arm] 02 Sat by Pulse Oximetry 96 97 98 Oxygen Delivery Method 05/18/24 16:05 05/18/24 16:06 05/18/24 16:10 Temperature 97.8 F 98.0 F Temperature Source Oral Oral Pulse Rate 90 91 H 89 Pulse Rate [Radial] Respiratory Rate 18 18 20 TAR Vitals Timing 5 Minute 10 Minute Blood Pressure 195/88 H 195/88 H 199/92 H Blood Pressure [Right Arm] Blood Pressure Mean 123 123 127 Blood Pressure Mean [Right Arm] Blood Pressure Source Automatic Cuff Automatic Cuff Blood Pressure Source [Right Arm] Blood Pressure Position Sitting Sitting Blood Pressure Position [Right Arm] 02 Sat by Pulse Oximetry 96 97 97 Oxygen Delivery Method 05/18/24 16:10 05/18/24 16:15 05/18/24 16:15 Temperature 98.6 F Temperature Source Oral Pulse Rate 91 H 96 H 90 Pulse Rate [Radial] Respiratory Rate 19 18 20 TAR Vitals Timing 15 Minute Blood Pressure 199/92 H 195/92 H 195/92 H Blood Pressure [Right Arm] Blood Pressure Mean 127 126 126 Blood Pressure Mean [Right Arm] Blood Pressure Source Automatic Cuff Blood Pressure Source [Right Arm] Blood Pressure Position Sitting Blood Pressure Position [Right Arm] 02 Sat by Pulse Oximetry 97 96 97 Oxygen Delivery Method 05/18/24 16:17 05/18/24 16:30 05/18/24 16:30 Temperature 98.4 F Temperature Source Oral Pulse Rate 90 93 H 93 H Pulse Rate [Radial] Respiratory Rate 18 18 18 TAR Vitals Timing 30 Minute Blood Pressure 192/95 H 192/90 H 194/90 H Blood Pressure [Right Arm] Blood Pressure Mean 127 124 124 Blood Pressure Mean [Right Arm] Blood Pressure Source Automatic Cuff Blood Pressure Source [Right Arm] Blood Pressure Position Sitting Blood Pressure Position [Right Arm] 02 Sat by Pulse Oximetry 97 97 97 Oxygen Delivery Method 05/18/24 16:45 05/18/24 16:45 05/18/24 17:00 Temperature 98.6 F 98.1 F Temperature Source Oral Pulse Rate 89 92 H 89 Pulse Rate [Radial] Respiratory Rate 20 20 17 TAR Vitals Timing 45 Minute Blood Pressure 198/88 H 198/88 H 197/91 H Blood Pressure [Right Arm] Blood Pressure Mean 124 124 126 Blood Pressure Mean [Right Arm] Blood Pressure Source Automatic Cuff Blood Pressure Source [Right Arm] Blood Pressure Position Sitting Blood Pressure Position [Right Arm] 02 Sat by Pulse Oximetry 97 97 97 Oxygen Delivery Method 05/18/24 17:00 05/18/24 17:40 Temperature 98.6 F 98.4 F Temperature Source Oral Oral Pulse Rate 90 89 Pulse Rate [Radial] Respiratory Rate 18 18 TAR Vitals Timing 60 Minute Completion Vitals Blood Pressure 197/91 H 183/85 H Blood Pressure [Right Arm] Blood Pressure Mean 126 117 Blood Pressure Mean [Right Arm] Blood Pressure Source Automatic Cuff Automatic Cuff Blood Pressure Source [Right Arm] Blood Pressure Position Sitting Sitting Blood Pressure Position [Right Arm] 02 Sat by Pulse Oximetry 96 98 Oxygen Delivery Method Lab Data Lab Results 05/18/24 10:40: Blood Type Confirm A Positive 05/18/24 12:10: WBC 4.0 L, RBC 2.34 L, Hgb 6.2 L*, Hct 19.8 L*, MCV 84.6, MCH 26.5 L, MCHC 31.3 L, RDW 14.3, Plt Count 302, MPV 9.2, Neut % (Auto) 68.1, Lymph % (Auto) 20.8, Izard % (Auto) 7.4, Eos % (Auto) 3.0, Baso % (Auto) 0.5, Neut # (Auto) 2.8, Lymph # (Auto) 0.8, Izard # (Auto) 0.3, Eos # (Auto) 0.1, Baso # (Auto) 0.0, Sodium 137, Potassium 4.0, Chloride 106, Carbon Dioxide 21 L, Anion Gap 14.0, BUN 49 H, Creatinine 4.90 H, Estimated Creat Clear 15, Estimated GFR 12 L*, Est GFR ( Amer) 14 L*, Glucose 129 H D, Calcium 8.8, Total Bilirubin 0.4, AST 31, ALT 20, Alkaline Phosphatase 68, Total Protein 6.9, A lbumin 3.6 D, Globulin 3.3 H, Albumin/Globulin Ratio 1.1, HIV Ag/Ab Combo Qual Negative 05/18/24 12:46: Blood Type A Positive, Antibody Screen Negative, Crossmatch (AHG) See Detail 05/18/24 16:00: Stool Occult Blood Negative 05/18/24 12:10 05/18/24 12:10 Orders (Tests/Meds): ED MEDICATIONS Generic Name Dose Route Start Last Admin Trade Name Flores PRN Reason Stop Dose Admin Sodium Chloride 250 mls @ 25 mls/hr 05/18/24 14:45 05/18/24 16:00 Sod Chlor 0.9% 250ml Bag IV 05/19/24 14:44 25 mls/hr .Q10H HERI Administration ORDERS Category Date Time Status Transfuse RBC's [Red Blood Cells] Stat BBK 05/18/24 12:46 Completed Type and Screen Stat BBK 05/18/24 12:46 Completed CBC w/Auto Diff [Complete Blood Count Auto Diff] Stat Lab 05/18/24 12:10 Completed CMP [Comprehensive Metabolic Panel] Stat Lab 05/18/24 12:10 Completed HIV Combo Stat Lab 05/18/24 12:10 Completed Hep C Ab with Reflex to RNA Stat Lab 05/18/24 12:10 Received Occult Blood,Stool Stat Lab 05/18/24 16:00 Completed Post-Transfn H/H [Hemoglobin & Hematocrit, Post] Timed Lab 05/18/24 18:40 Ordered Medical Decision Narrative: This a 69-year-old male presenting with abnormal labs. Patient states that he has a history of CKD, hypertension, hyperlipidemia, hypothyroidism, currently following with nephrology at outside facility. Was called today because his hemoglobin was low and told that he needed blood. No associated symptoms. Currently taking Xarelto for unknown reason, he thinks it is related to peripheral vascular disease. Denies vomiting blood, urinating blood, bright red stools, dark tarry stools, or any other concerns. History was obtained via conversation with patient. On arrival, patient hemodynamically stable, alert, oriented x4, appropriate, GCS 15, moving all extremities spontaneously, pupils equal and reactive to light. Full physical exam performed and significant for scattered bruising on upper extremities. Abdomen soft, nontender, nondistended. Patient has right upper sternal border murmur. Lungs are clear. Differential includes metabolic abnormality, endocrinologic abnormality, hematologic abnormality, KWAN, lab draw error, acute blood loss anemia, chronic blood loss anemia, among others Patient placed on continuous cardiac monitoring and continuous pulse ox with initial blood pressure 170/79, heart rate 73, saturation 97% on room air. On independent interpretation of workup, patient a positive blood with antibody negative. Hemoglobin 6.2 with hematocrit 19.8. 1 unit type and screen. Patient has KWAN on CKD with creatinine 4.9 and BUN 49. 1 unit of blood was transfused. Given 1 g hemoglobin drop in just a couple weeks, [facility] was contacted and case was discussed. States that they will graciously except for nephrology, however if patient is having GI bleed, they do not have gastroenterology on currently. Stated that if occult stool was negative, they would accept patient and work him up from renal standpoint. Occult stool sent. Prior to transfusion, occult stool, and disposition, care handed off to oncoming physician. [facility] Administrator disclaimer Much of this encounter note is an electronic integration specialist spoken language to printed text. Electronic integration specialist of the spoken language may permit errors. Although I have reviewed the note, some errors may still exist. <Samantha Logan, DO - Last Filed: 05/18/24 17:54> Vital Signs: 05/18/24 11:53 05/18/24 12:30 05/18/24 13:01 Temperature 97.9 F Temperature Source Oral Pulse Rate 65 68 Pulse Rate [Radial] 73 Respiratory Rate 18 18 TAR Vitals Timing Blood Pressure 156/73 H 153/71 H Blood Pressure [Right Arm] 170/79 H Blood Pressure Mean 125 124 Blood Pressure Mean [Right Arm] 109 Blood Pressure Source Blood Pressure Source [Right Arm] Automatic Cuff Blood Pressure Position Blood Pressure Position [Right Arm] Sitting 02 Sat by Pulse Oximetry 97 97 97 Oxygen Delivery Method Room Air 05/18/24 14:14 05/18/24 14:31 05/18/24 15:00 Temperature Temperature Source Pulse Rate 80 84 82 Pulse Rate [Radial] Respiratory Rate 18 16 18 TAR Vitals Timing Blood Pressure 167/74 H 175/73 H 184/82 H Blood Pressure [Right Arm] Blood Pressure Mean 105 107 116 Blood Pressure Mean [Right Arm] Blood Pressure Source Blood Pressure Source [Right Arm] Blood Pressure Position Blood Pressure Position [Right Arm] 02 Sat by Pulse Oximetry 97 98 97 Oxygen Delivery Method 05/18/24 15:30 05/18/24 15:43 05/18/24 15:44 Temperature 98.4 F Temperature Source Oral Pulse Rate 77 84 87 Pulse Rate [Radial] Respiratory Rate 16 16 18 TAR Vitals Timing Pre-Blood Vitals Blood Pressure 183/85 H 189/82 H 189/82 H Blood Pressure [Right Arm] Blood Pressure Mean 117 117 117 Blood Pressure Mean [Right Arm] Blood Pressure Source Automatic Cuff Blood Pressure Source [Right Arm] Blood Pressure Position Sitting Blood Pressure Position [Right Arm] 02 Sat by Pulse Oximetry 97 95 98 Oxygen Delivery Method 05/18/24 16:00 05/18/24 16:00 05/18/24 16:04 Temperature 98.4 F Temperature Source Oral Pulse Rate 90 89 89 Pulse Rate [Radial] Respiratory Rate 18 16 19 TAR Vitals Timing Start Vitals Blood Pressure 190/90 H 193/91 H 190/90 H Blood Pressure [Right Arm] Blood Pressure Mean 123 125 123 Blood Pressure Mean [Right Arm] Blood Pressure Source Automatic Cuff Blood Pressure Source [Right Arm] Blood Pressure Position Sitting Blood Pressure Position [Right Arm] 02 Sat by Pulse Oximetry 96 97 98 Oxygen Delivery Method 05/18/24 16:05 05/18/24 16:06 05/18/24 16:10 Temperature 97.8 F 98.0 F Temperature Source Oral Oral Pulse Rate 90 91 H 89 Pulse Rate [Radial] Respiratory Rate 18 18 20 TAR Vitals Timing 5 Minute 10 Minute Blood Pressure 195/88 H 195/88 H 199/92 H Blood Pressure [Right Arm] Blood Pressure Mean 123 123 127 Blood Pressure Mean [Right Arm] Blood Pressure Source Automatic Cuff Automatic Cuff Blood Pressure Source [Right Arm] Blood Pressure Position Sitting Sitting Blood Pressure Position [Right Arm] 02 Sat by Pulse Oximetry 96 97 97 Oxygen Delivery Method 05/18/24 16:10 05/18/24 16:15 05/18/24 16:15 Temperature 98.6 F Temperature Source Oral Pulse Rate 91 H 96 H 90 Pulse Rate [Radial] Respiratory Rate 19 18 20 TAR Vitals Timing 15 Minute Blood Pressure 199/92 H 195/92 H 195/92 H Blood Pressure [Right Arm] Blood Pressure Mean 127 126 126 Blood Pressure Mean [Right Arm] Blood Pressure Source Automatic Cuff Blood Pressure Source [Right Arm] Blood Pressure Position Sitting Blood Pressure Position [Right Arm] 02 Sat by Pulse Oximetry 97 96 97 Oxygen Delivery Method 05/18/24 16:17 05/18/24 16:30 05/18/24 16:30 Temperature 98.4 F Temperature Source Oral Pulse Rate 90 93 H 93 H Pulse Rate [Radial] Respiratory Rate 18 18 18 TAR Vitals Timing 30 Minute Blood Pressure 192/95 H 192/90 H 194/90 H Blood Pressure [Right Arm] Blood Pressure Mean 127 124 124 Blood Pressure Mean [Right Arm] Blood Pressure Source Automatic Cuff Blood Pressure Source [Right Arm] Blood Pressure Position Sitting Blood Pressure Position [Right Arm] 02 Sat by Pulse Oximetry 97 97 97 Oxygen Delivery Method 05/18/24 16:45 05/18/24 16:45 05/18/24 17:00 Temperature 98.6 F 98.1 F Temperature Source Oral Pulse Rate 89 92 H 89 Pulse Rate [Radial] Respiratory Rate 20 20 17 TAR Vitals Timing 45 Minute Blood Pressure 198/88 H 198/88 H 197/91 H Blood Pressure [Right Arm] Blood Pressure Mean 124 124 126 Blood Pressure Mean [Right Arm] Blood Pressure Source Automatic Cuff Blood Pressure Source [Right Arm] Blood Pressure Position Sitting Blood Pressure Position [Right Arm] 02 Sat by Pulse Oximetry 97 97 97 Oxygen Delivery Method 05/18/24 17:00 05/18/24 17:40 Temperature 98.6 F 98.4 F Temperature Source Oral Oral Pulse Rate 90 89 Pulse Rate [Radial] Respiratory Rate 18 18 TAR Vitals Timing 60 Minute Completion Vitals Blood Pressure 197/91 H 183/85 H Blood Pressure [Right Arm] Blood Pressure Mean 126 117 Blood Pressure Mean [Right Arm] Blood Pressure Source Automatic Cuff Automatic Cuff Blood Pressure Source [Right Arm] Blood Pressure Position Sitting Sitting Blood Pressure Position [Right Arm] 02 Sat by Pulse Oximetry 96 98 Oxygen Delivery Method Lab Data Lab Results 05/18/24 10:40: Blood Type Confirm A Positive 05/18/24 12:10: WBC 4.0 L, RBC 2.34 L, Hgb 6.2 L*, Hct 19.8 L*, MCV 84.6, MCH 26.5 L, MCHC 31.3 L, RDW 14.3, Plt Count 302, MPV 9.2, Neut % (Auto) 68.1, Lymph % (Auto) 20.8, Izard % (Auto) 7.4, Eos % (Auto) 3.0, Baso % (Auto) 0.5, Neut # (Auto) 2.8, Lymph # (Auto) 0.8, Izard # (Auto) 0.3, Eos # (Auto) 0.1, Baso # (Auto) 0.0, Sodium 137, Potassium 4.0, Chloride 106, Carbon Dioxide 21 L, Anion Gap 14.0, BUN 49 H, Creatinine 4.90 H, Estimated Creat Clear 15, Estimated GFR 12 L*, Est GFR ( Amer) 14 L*, Glucose 129 H D, Calcium 8.8, Total Bilirubin 0.4, AST 31, ALT 20, Alkaline Phosphatase 68, Total Protein 6.9, A lbumin 3.6 D, Globulin 3.3 H, Albumin/Globulin Ratio 1.1, HIV Ag/Ab Combo Qual Negative 05/18/24 12:46: Blood Type A Positive, Antibody Screen Negative, Crossmatch (AHG) See Detail 05/18/24 16:00: Stool Occult Blood Negative Orders (Tests/Meds): ED MEDICATIONS Generic Name Dose Route Start Last Admin Trade Name Freq PRN Reason Stop Dose Admin Sodium Chloride 250 mls @ 25 mls/hr 05/18/24 14:45 05/18/24 16:00 Sod Chlor 0.9% 250ml Bag IV 05/19/24 14:44 25 mls/hr .Q10H HERI Administration ORDERS Category Date Time Status Transfuse RBC's [Red Blood Cells] Stat BBK 05/18/24 12:46 Completed Type and Screen Stat BBK 05/18/24 12:46 Completed CBC w/Auto Diff [Complete Blood Count Auto Diff] Stat Lab 05/18/24 12:10 Completed CMP [Comprehensive Metabolic Panel] Stat Lab 05/18/24 12:10 Completed HIV Combo Stat Lab 05/18/24 12:10 Completed Hep C Ab with Reflex to RNA Stat Lab 05/18/24 12:10 Received Occult Blood,Stool Stat Lab 05/18/24 16:00 Completed Post-Transfn H/H [Hemoglobin & Hematocrit, Post] Timed Lab 05/18/24 18:40 Ordered Medical Decision Narrative: This a 69-year-old male presenting with abnormal labs. Patient states that he has a history of CKD, hypertension, hyperlipidemia, hypothyroidism, currently following with nephrology at outside facility. Was called today because his hemoglobin was low and told that he needed blood. No associated symptoms. Currently taking Xarelto for unknown reason, he thinks it is related to peripheral vascular disease. Denies vomiting blood, urinating blood, bright red stools, dark tarry stools, or any other concerns. History was obtained via conversation with patient. On arrival, patient hemodynamically stable, alert, oriented x4, appropriate, GCS 15, moving all extremities spontaneously, pupils equal and reactive to light. Full physical exam performed and significant for scattered bruising on upper extremities. Abdomen soft, nontender, nondistended. Patient has right upper sternal border murmur. Lungs are clear. Differential includes metabolic abnormality, endocrinologic abnormality, hematologic abnormality, KWAN, lab draw error, acute blood loss anemia, chronic blood loss anemia, among others Patient placed on continuous cardiac monitoring and continuous pulse ox with initial blood pressure 170/79, heart rate 73, saturation 97% on room air. On independent interpretation of workup, patient a positive blood with antibody negative. Hemoglobin 6.2 with hematocrit 19.8. 1 unit type and screen. Patient has KWAN on CKD with creatinine 4.9 and BUN 49. 1 unit of blood was transfused. Given 1 g hemoglobin drop in just a couple weeks, [facility] was contacted and case was discussed. States that they will graciously except for nephrology, however if patient is having GI bleed, they do not have gastroenterology on currently. Stated that if occult stool was negative, they would accept patient and work him up from renal standpoint. Occult stool sent. Prior to transfusion, occult stool, and disposition, care handed off to oncoming physician. Childcare Center Administrator disclaimer Much of this encounter note is an electronic integration specialist spoken language to printed text. Electronic integration specialist of the spoken language may permit errors. Although I have reviewed the note, some errors may still exist. Desmond, DO: Patient monitored while receiving blood, tolerated well. Reassuring vital signs. He is completely stable on reassessment and deemed to be appropriate for transfer. I had an interactive discussion with Dr. Davey, hospitalist at [place] who accepted the patient for transfer for higher level care with neurology given the patient's renal failure. We had initially arranged transfer by EMS, however then patient and family elected to go POV. His daughter is a nurse and is wanting to drive him. Given this, patient left in stable condition to go POV. Critical Care <Antoine Arthur MD - Last Filed: 05/18/24 16:26> Critical Care Time Critical Care Time: Yes (hematologic, renal) Attestation: On 05/18/24, the high probability of a clinically significant, sudden or life threatening deterioration of the following system(s) required my full and direct attention, intervention and personal management. The time I documented below is in addition to time spent performing reported procedures but includes the following listed in this critical care notation. Total Time Total Critical Care Time: 45
[2024-05-18 13:40] LABS: Basophils % 0.5 % (0.1-2.0); Eosinophils # 0.1 K/mm3 (0.0-0.4); Lymphocytes # 0.8 K/mm3 (0.7-4.5); Lymphocytes % 20.8 % (10-50); Mean Corpuscular HGB Conc 31.3 g/dL (31.8-35.4); Mean Corpuscular Hemoglobin 26.5 pg (27.0-31.2); Mean Corpuscular Volume 84.6 fl (80-94); Mean Platelet Volume 9.2 fl (7.4-10.4); Monocytes # 0.3 K/mm3 (0.1-1.0); Monocytes % 7.4 % (1.7-9.3); Neutrophils # 2.8 K/mm3 (1.8-7.8); Neutrophils % 68.1 % (37.0-80.0); Platelet Count 302 K/mm3 (142-424); Red Blood Count 2.34 M/mm3 (4.60-6.20); Red Cell Distribution Width 14.3 % (11.5-17.5)
[2024-05-18 13:43] LABS: Hematocrit 19.8 % (42.0-52.0); Hemoglobin 6.2 g/dL (14.1-18.0)
--- NOTE | 2024-05-18 14:05 | PC.NURSE ---
DR MCGINNIS SPEAKING WITH DR LAMA FOR ADMISSION
[2024-05-18 14:11] LABS: HIV Combo NEGATIVE (Negative)
--- NOTE | 2024-05-18 14:34 | PC.NURSE ---
CALLED REPORT TO BORA LOMELI
--- NOTE | 2024-05-18 14:43 | PC.NURSE ---
Called [facility] for a transfer
[2024-05-18] MEDS: 0.9 % SODIUM CHLORIDE 250 ML 25 ML IV (16:00)
--- NOTE | 2024-05-18 16:01 | PC.NURSE ---
DAUGHTER AT BEDSIDE, WANTS PT TRANSFERRED TO OR [facility]. NOTIFIED
--- NOTE | 2024-05-18 16:19 | PC.NURSE ---
DR MCGINNIS AT BEDSIDE
[2024-05-18 16:28] LABS: Occult Blood,Stool Negative (Negative)
--- NOTE | 2024-05-18 16:40 | PC.NURSE ---
SPOKE WITH [facility] TO SPEAK WITH HOSPITALIST, WILL CALL BACK
--- NOTE | 2024-05-18 16:55 | PC.NURSE ---
DR QUIROGA SPEAKING WITH [facility]
--- NOTE | 2024-05-18 17:38 | PC.NURSE ---
CALLED REPORT TO JOSE LOMELI
[2024-05-19 07:08] LABS: HCV Ab Non Reactive (Non Reactive)
== END 2024-05-18 18:07 | disposition short-term general hospital (02) ==
PROVIDERS: Emergency Provider Emergency Medicine; PCP Family Medicine
DX: D62 Acute posthemorrhagic anemia (principal); N17.9 Acute kidney failure, unspecified
CPT/HCPCS: 80053; 82272; 85025; 86803; 86850; 87389; 99291; G0328; P9016

== ENCOUNTER 2024-05-31 09:52 | Outpatient (CLI) | payer MEDICARE, SELFPAY ==
[2024-05-31 10:03] LABS: Microscopic, Urine URINE MICROSCOPIC (MICROSCOPIC)
[2024-05-31 10:32] LABS: Basophils % 0.4 % (0.1-2.0); Eosinophils # 0.1 K/mm3 (0.0-0.4); Eosinophils % 2.4 % (0.1-12.0); Hematocrit 27.9 % (42.0-52.0); Hemoglobin 8.7 g/dL (14.1-18.0); Lymphocytes % 20.3 % (10-50); Mean Corpuscular HGB Conc 31.2 g/dL (31.8-35.4); Mean Corpuscular Hemoglobin 26.6 pg (27.0-31.2); Mean Corpuscular Volume 85.3 fl (80-94); Mean Platelet Volume 9.1 fl (7.4-10.4); Monocytes # 0.3 K/mm3 (0.1-1.0); Neutrophils # 3.3 K/mm3 (1.8-7.8); Neutrophils % 70.5 % (37.0-80.0); Platelet Count 245 K/mm3 (142-424); Red Blood Count 3.27 M/mm3 (4.60-6.20); Red Cell Distribution Width 15.2 % (11.5-17.5); Reticulocyte % (Auto) 1.1 % (0.9-3.2); White Blood Count 4.7 K/mm3 (4.8-10.8)
[2024-05-31 11:10] LABS: Albumin Level 3.4 g/dl (3.5-5.0); Chloride 106 mmol/L (98-107)
[2024-05-31 11:11] LABS: Potassium 4.2 mmoL/L (3.5-5.1); Sodium 140 mmol/L (136-145)
[2024-05-31 11:13] LABS: Alanine Aminotransferase 17 U/L (12-78); Albumin/Globulin Ratio 1.3 (1.1-1.8); Alkaline Phosphatase 67 U/L (38-126); Anion Gap 16.2 mEq/L (5-15); Aspartate Amino Transferase 28 U/L (17-59); Bilirubin,Total 0.4 mg/dl (0.2-1.3); Blood Urea Nitrogen 46 mg/dl (9-20); Carbon Dioxide 22 mmol/L (22.0-30.0); Estimated Glomerular Filt Rate 14 ml/min (>60); GFR (African American) 17 ML/MIN (>60); Globulin 2.7 g/dL (1.3-3.2); Total Protein,Serum 6.1 g/dl (6.3-8.2)
[2024-05-31 11:14] LABS: Calcium 8.7 mg/dl (8.4-10.2); Glucose 100 mg/dl (74-100); Phosphorous 5.9 mg/dl (2.5-4.5)
[2024-05-31 11:24] LABS: Total Iron Binding Capacity 270 ug/dL (261-462)
[2024-05-31 11:34] LABS: 25-OH Vitamin D, Total 21.6 ng/mL (30-100)
[2024-05-31 11:47] LABS: Ferritin 132 ng/ml (17.9-464)
[2024-05-31 11:49] LABS: Appearance,Urine CLEAR (Clear); Bilirubin,Urine Negative (Negative); Blood, Urine Negative (Negative); Color,Urine YELLOW (Yellow); Glucose,Urine (UA) TRACE (Negative); Ketones,Urine Negative (Negative); Leukocyte Esterase,Urine Negative (Negative); Nitrate,Urine Negative (Negative); Protein,Urine 2+ (Negative); Urobilinogen,Urine 0.2 EU/dl (0.2)
[2024-05-31 11:56] LABS: Uric Acid 7.5 mg/dl (3.5-8.5)
[2024-05-31 12:07] LABS: Creatinine,Urine Random 33 mg/dL (Not Estab.)
[2024-05-31 12:09] LABS: Intact Parathyroid Hormone 201.5 pg/mL (7.5-53.5)
[2024-05-31 12:30] LABS: Bacteria,Urine Trace /lpf
[2024-05-31 13:03] LABS: Vitamin B12 372 pg/mL (239-931)
[2024-05-31 13:28] LABS: Folate > 20.00 ng/mL
[2024-05-31 13:54] LABS: Iron 54 ug/dL (49-181)
[2024-06-01 07:10] LABS: Transferrin 206 mg/dL (177-329)
== END 2024-05-31 23:59 | disposition home or self-care (01) ==
LOC: LAB 09:53
PROVIDERS: PCP Family Medicine; Visit Provider Internal Medicine Nephrology
DX: N18.4 Chronic kidney disease, stage 4 (severe) (principal); I12.9 Hypertensive chronic kidney disease with stage 1 through stage 4 chronic kidney disease, or unspecified chronic kidney disease; I25.10 Atherosclerotic heart disease of native coronary artery without angina pectoris; E03.9 Hypothyroidism, unspecified; E78.5 Hyperlipidemia, unspecified; D63.1 Anemia in chronic kidney disease; N25.81 Secondary hyperparathyroidism of renal origin; E87.20 Acidosis, unspecified; Z79.899 Other long term (current) drug therapy
CPT/HCPCS: 36415; 80053; 81001; 82306; 82570; 82607; 82728; 82746; 83540; 83550; 83970; 84100; 84156; 84466; 84550; 85025; 85044

== ENCOUNTER 2024-06-05 08:23 | Outpatient (CLI) | payer MEDICARE, SELFPAY ==
[2024-06-05 08:49] VITALS: BMI 20.9
[2024-06-05 09:03] LABS: Basophils % 0.5 % (0.1-2.0); Eosinophils # 0.1 K/mm3 (0.0-0.4); Eosinophils % 1.8 % (0.1-12.0); Hematocrit 26.5 % (42.0-52.0); Hemoglobin 8.7 g/dL (14.1-18.0); Lymphocytes # 0.8 K/mm3 (0.7-4.5); Lymphocytes % 20.8 % (10-50); Mean Corpuscular HGB Conc 32.8 g/dL (31.8-35.4); Mean Corpuscular Hemoglobin 27.3 pg (27.0-31.2); Mean Corpuscular Volume 83.1 fl (80-94); Mean Platelet Volume 9.2 fl (7.4-10.4); Monocytes # 0.3 K/mm3 (0.1-1.0); Neutrophils # 2.7 K/mm3 (1.8-7.8); Neutrophils % 69.6 % (37.0-80.0); Platelet Count 221 K/mm3 (142-424); Red Blood Count 3.19 M/mm3 (4.60-6.20); Red Cell Distribution Width 14.8 % (11.5-17.5); White Blood Count 3.9 K/mm3 (4.8-10.8)
[2024-06-05] MEDS: EPOETIN 20,000 UNITS/ML MDV 20000 UNIT SUBCUT (09:24)
[2024-06-05 09:30] VITALS: BP 98/66; PULSE 84; RESP 18; TEMP 36.8; O2SAT 97
[2024-06-05 09:37] LABS: Alanine Aminotransferase 17 U/L (12-78); Albumin Level 3.4 g/dl (3.5-5.0); Albumin/Globulin Ratio 1.3 (1.1-1.8); Alkaline Phosphatase 63 U/L (38-126); Anion Gap 13.1 mEq/L (5-15); Aspartate Amino Transferase 28 U/L (17-59); Bilirubin,Total 0.3 mg/dl (0.2-1.3); Blood Urea Nitrogen 54 mg/dl (9-20); Calcium 8.6 mg/dl (8.4-10.2); Carbon Dioxide 22 mmol/L (22.0-30.0); Chloride 107 mmol/L (98-107); Creatinine Clearance Estimated 14 mL/min (50-200); Estimated Glomerular Filt Rate 12 ml/min (>60); GFR (African American) 15 ML/MIN (>60); Globulin 2.6 g/dL (1.3-3.2); Glucose 99 mg/dl (74-100); Potassium 4.1 mmoL/L (3.5-5.1); Sodium 138 mmol/L (136-145)
== END 2024-06-05 09:45 | disposition home or self-care (01) ==
LOC: INF 08:23
PROVIDERS: Orthopaedic Surgery; PCP Family Medicine; Visit Provider Internal Medicine Nephrology
DX: M17.12 Unilateral primary osteoarthritis, left knee (principal)
CPT/HCPCS: 36415; 80053; 85025; 96372; J0885

== ENCOUNTER 2024-06-12 08:28 | Outpatient (CLI) | payer MEDICARE, SELFPAY ==
[2024-06-12 08:31] VITALS: BMI 20.9
--- NOTE | 2024-06-12 08:51 | PC.NURSE ---
0845 Labs obtained as ordered via venipuncture to R AC x1 stick with butterfly needle. Patient here for Procrit based on lab results. UA obtained as ordered as well. Patient tolerated well.
[2024-06-12 08:53] LABS: Microscopic, Urine URINE MICROSCOPIC (MICROSCOPIC)
[2024-06-12 09:00] LABS: Basophils % 0.5 % (0.1-2.0); Eosinophils # 0.1 K/mm3 (0.0-0.4); Eosinophils % 1.7 % (0.1-12.0); Hemoglobin 9.2 g/dL (14.1-18.0); Lymphocytes # 1.1 K/mm3 (0.7-4.5); Lymphocytes % 25.9 % (10-50); Mean Corpuscular HGB Conc 31.7 g/dL (31.8-35.4); Mean Corpuscular Hemoglobin 26.4 pg (27.0-31.2); Mean Corpuscular Volume 83.3 fl (80-94); Mean Platelet Volume 8.4 fl (7.4-10.4); Monocytes # 0.3 K/mm3 (0.1-1.0); Monocytes % 6.7 % (1.7-9.3); Neutrophils # 2.7 K/mm3 (1.8-7.8); Platelet Count 249 K/mm3 (142-424); Red Blood Count 3.48 M/mm3 (4.60-6.20); Red Cell Distribution Width 15.7 % (11.5-17.5); White Blood Count 4.2 K/mm3 (4.8-10.8)
[2024-06-12 09:25] LABS: Appearance,Urine CLEAR (Clear); Bilirubin,Urine Negative (Negative); Blood, Urine Negative (Negative); Color,Urine YELLOW (Yellow); Glucose,Urine (UA) TRACE (Negative); Ketones,Urine Negative (Negative); Leukocyte Esterase,Urine Negative (Negative); Nitrate,Urine Negative (Negative); Protein,Urine 3+ (Negative); Urobilinogen,Urine 0.2 EU/dl (0.2)
[2024-06-12 09:26] LABS: Albumin Level 3.6 g/dl (3.5-5.0); Chloride 102 mmol/L (98-107); Potassium 3.2 mmoL/L (3.5-5.1); Sodium 134 mmol/L (136-145)
[2024-06-12 09:28] LABS: Blood Urea Nitrogen 48 mg/dl (9-20); Creatinine Clearance Estimated 13 mL/min (50-200); Estimated Glomerular Filt Rate 11 ml/min (>60); GFR (African American) 13 ML/MIN (>60)
[2024-06-12] MEDS: EPOETIN 20,000 UNITS/ML MDV 20000 UNIT SUBCUT (09:28)
[2024-06-12 09:29] LABS: Alanine Aminotransferase 18 U/L (12-78); Albumin/Globulin Ratio 1.2 (1.1-1.8); Alkaline Phosphatase 67 U/L (38-126); Anion Gap 12.2 mEq/L (5-15); Aspartate Amino Transferase 29 U/L (17-59); Bilirubin,Total 0.3 mg/dl (0.2-1.3); Calcium 8.2 mg/dl (8.4-10.2); Carbon Dioxide 23 mmol/L (22.0-30.0); Globulin 2.9 g/dL (1.3-3.2); Glucose 107 mg/dl (74-100); Total Protein,Serum 6.5 g/dl (6.3-8.2)
[2024-06-12 09:38] VITALS: BP 148/82; PULSE 67; RESP 16; TEMP 36.9; O2SAT 97
[2024-06-12 09:52] LABS: Bacteria,Urine Trace /lpf; WBC,Urine Occasional #/hpf (0-3)
== END 2024-06-12 09:55 | disposition home or self-care (01) ==
LOC: INF 08:31
PROVIDERS: PCP Internal Medicine Nephrology; Visit Provider Internal Medicine Nephrology
DX: D64.9 Anemia, unspecified (principal)
CPT/HCPCS: 36415; 80053; 81001; 85025; 96372; J0885

== ENCOUNTER 2024-06-19 12:54 | Outpatient (CLI) | payer MEDICARE, SELFPAY ==
[2024-06-19 12:58] VITALS: BMI 21.7
--- NOTE | 2024-06-19 13:04 | PC.NURSE ---
1304-lea,nurse livestock yard attendant collected labs via venipuncture stick with butterfly needle in right ac;will wait of labs; if hgb<10 give procrit 20,000units
[2024-06-19 13:11] LABS: Hematocrit 30.1 % (42.0-52.0); Hemoglobin 9.4 g/dL (14.1-18.0)
[2024-06-19] MEDS: EPOETIN 20,000 UNITS/ML MDV 20000 UNIT SUBCUT (13:30)
[2024-06-19 13:35] VITALS: BP 170/85; PULSE 75; RESP 18; TEMP 37.1; O2SAT 97
== END 2024-06-19 13:35 | disposition home or self-care (01) ==
LOC: INF 12:54
PROVIDERS: PCP Family Medicine; Visit Provider Internal Medicine Nephrology
DX: I25.10 Atherosclerotic heart disease of native coronary artery without angina pectoris (principal)
CPT/HCPCS: 36415; 85014; 85018; 96372; J0885

== ENCOUNTER 2024-06-29 08:43 | Outpatient (CLI) | payer MEDICARE, SELFPAY ==
[2024-06-29 08:48] VITALS: BMI 21.7
--- NOTE | 2024-06-29 08:50 | PC.NURSE ---
0850maureen, nurse front window cashier collected labs via venipuncuture stick with butterfly needle in right ac.pt to wait on results if hgb <10 pt to receive procrit injection
[2024-06-29 09:01] LABS: Basophils % 0.2 % (0.1-2.0); Eosinophils # 0.1 K/mm3 (0.0-0.4); Eosinophils % 1.2 % (0.1-12.0); Hematocrit 30.2 % (42.0-52.0); Hemoglobin 9.7 g/dL (14.1-18.0); Lymphocytes # 1.2 K/mm3 (0.7-4.5); Lymphocytes % 21.5 % (10-50); Mean Corpuscular HGB Conc 32.1 g/dL (31.8-35.4); Mean Corpuscular Hemoglobin 25.8 pg (27.0-31.2); Mean Corpuscular Volume 80.3 fl (80-94); Mean Platelet Volume 9.1 fl (7.4-10.4); Monocytes # 0.5 K/mm3 (0.1-1.0); Monocytes % 8.3 % (1.7-9.3); Neutrophils # 3.9 K/mm3 (1.8-7.8); Neutrophils % 68.5 % (37.0-80.0); Platelet Count 198 K/mm3 (142-424); Red Blood Count 3.76 M/mm3 (4.60-6.20); Red Cell Distribution Width 14.7 % (11.5-17.5); White Blood Count 5.8 K/mm3 (4.8-10.8)
[2024-06-29] MEDS: EPOETIN 20,000 UNITS/ML MDV 20000 UNIT SUBCUT (09:45)
[2024-06-29 09:50] VITALS: BP 164/73; PULSE 69; RESP 18; O2SAT 96
== END 2024-06-29 09:50 | disposition home or self-care (01) ==
LOC: INF 08:44
PROVIDERS: PCP Family Medicine; Visit Provider Internal Medicine Nephrology
DX: I25.10 Atherosclerotic heart disease of native coronary artery without angina pectoris (principal)
CPT/HCPCS: 36415; 85025; 96372; J0885

== ENCOUNTER 2024-09-17 08:02 | Outpatient (CLI) | payer MEDICARE, SELFPAY ==
[2024-09-17 09:20] LABS: Basophils % 0.7 % (0.1-2.0); Eosinophils # 0.1 Kmm3 (0.0-0.4); Eosinophils % 1.7 % (0.1-12.0); Hematocrit 28.9 % (42.0-52.0); Hemoglobin 9.4 g/dL (14.1-18.0); Lymphocytes # 1.1 K/mm3 (0.7-4.5); Lymphocytes % 35.8 % (10-50); Mean Corpuscular HGB Conc 32.5 g/dL (31.8-35.4); Mean Corpuscular Hemoglobin 29.4 pg (27.0-31.2); Mean Corpuscular Volume 90.3 fl (80-94); Mean Platelet Volume 9.3 fl (7.4-10.4); Monocytes # 0.3 K/mm3 (0.1-1.0); Monocytes % 9.1 % (1.7-9.3); Neutrophils # 1.6 K/mm3 (1.8-7.8); Neutrophils % 52.7 % (37.0-80.0); Nucleated Red Blood Cells # 0 10^3/uL; Nucleated Red Blood Cells % 0 %; Platelet Count 200 K/mm3 (142-424); Red Cell Distribution Width 16.2 % (11.5-17.5); Red Cell Distribution Width-SD 53.7 fL
[2024-09-17 11:48] LABS: Blood Urea Nitrogen 37 mg/dl (9-20); Calcium 8.8 mg/dl (8.4-10.2); Carbon Dioxide 29 mmol/L (22.0-30.0); Chloride 102 mmol/L (98-107); Estimated Glomerular Filt Rate 12 ml/min (>60); GFR (African American) 15 ML/MIN (>60); Glucose 86 mg/dl (74-100); Sodium 136 mmol/L (136-145)
== END 2024-09-17 23:59 | disposition home or self-care (01) ==
LOC: LAB 08:04
PROVIDERS: PCP Family Medicine; Visit Provider Surgery
DX: N18.6 End stage renal disease (principal); R03.0 Elevated blood-pressure reading, without diagnosis of hypertension; Z91.81 History of falling
CPT/HCPCS: 36415; 80048; 85025

== ENCOUNTER 2024-10-02 10:48 | Outpatient (CLI) | payer MEDICARE, SELFPAY ==
[2024-10-02 11:20] LABS: Basophils % 0.7 % (0.1-2.0); Eosinophils # 0.1 Kmm3 (0.0-0.4); Eosinophils % 1.7 % (0.1-12.0); Hematocrit 31.4 % (42.0-52.0); Hemoglobin 10.5 g/dL (14.1-18.0); Immature Granulocytes # 0.01 10^3uL; Immature Granulocytes % 0.3 %; Lymphocytes # 0.7 K/mm3 (0.7-4.5); Lymphocytes % 22.4 % (10-50); Mean Corpuscular HGB Conc 33.4 g/dL (31.8-35.4); Mean Corpuscular Hemoglobin 29.9 pg (27.0-31.2); Mean Corpuscular Volume 89.5 fl (80-94); Mean Platelet Volume 8.5 fl (7.4-10.4); Monocytes # 0.2 K/mm3 (0.1-1.0); Monocytes % 6.6 % (1.7-9.3); Neutrophils # 2.1 K/mm3 (1.8-7.8); Neutrophils % 68.3 % (37.0-80.0); Nucleated Red Blood Cells # 0 10^3/uL; Nucleated Red Blood Cells % 0 %; Platelet Count 188 K/mm3 (142-424); Red Blood Count 3.51 M/mm3 (4.60-6.20); Red Cell Distribution Width 15.6 % (11.5-17.5); Red Cell Distribution Width-SD 50.3 fL
[2024-10-02 11:51] LABS: Chloride 96 mmol/L (98-107); Potassium 3.5 mmoL/L (3.5-5.1); Sodium 135 mmol/L (136-145)
[2024-10-02 11:54] LABS: Anion Gap 10.5 mEq/L (5-15); Blood Urea Nitrogen 14 mg/dl (9-20); Calcium 8.2 mg/dl (8.4-10.2); Carbon Dioxide 32 mmol/L (22.0-30.0); Estimated Glomerular Filt Rate 25 ml/min (>60); GFR (African American) 30 ML/MIN (>60); Glucose 160 mg/dl (74-100)
== END 2024-10-02 23:59 | disposition home or self-care (01) ==
LOC: LAB 10:50
PROVIDERS: PCP Family Medicine; Visit Provider Surgery
DX: I12.9 Hypertensive chronic kidney disease with stage 1 through stage 4 chronic kidney disease, or unspecified chronic kidney disease (principal); N18.6 End stage renal disease; Z91.81 History of falling; Z87.891 Personal history of nicotine dependence
CPT/HCPCS: 36415; 80048; 85025